=== PATIENT | male | born 1960 | race African-American/Black ===

== ENCOUNTER 2019-09-25 01:22 | Inpatient (IN) ==
[2019-09-25] MEDS ORDERED: NS 1000 ML 1,000 ML IV ONE (01:50)
--- NOTE | 2019-09-25 01:51 | DR.GIBLEED ---
HPI Time Seen Time Seen by Provider: 09/25/19 01:42 Primary Care Physician Primary Care Physician: SANA Complaints Chief Complaint Doctors Comments: A 59 y/o male resident at [facility] brought in for evaluation rectal bleed noted tonight. He is not contributing to hx. and that's all that was provided by the [facility] staff. He denies hurting anywhere. Chief Complaint:: PT HAVING BLOODY STOOLS Reviewed Nurses Notes Reviewed: Yes Source History Provided: [facility] Mode of Arrival Mode of Arrival: Stretcher Timing Onset of Chief Complaint: 09/25/19 Duration Duration: Unknown Quality Prehospital Care:: None Context Onset: Spontaneous Recent Use Of: None Associated Signs and Symptoms Associated Signs and Symptoms: denies Chest Pain, Abdominal Pain, Diarrhea, Epistaxis, Menorrhagia (female), Faintness and Other PMH PMH Past Medical History: Yes Past Medical History: Coronary Artery Disease, CVA, Diabetes and GERD Past Surgical History: No Surgical History: Unknown Family History History of Family Medical Conditions: No Social History Does patient currently use any type of tobacco product: Yes Have you used tobacco products in the last 12 months: Yes Type of Tobacco Use: Cigarettes Does any household member use tobacco: No Alcohol Use: None Do you use any recreational Drugs:: No Lives With: Other Lives Where: [facility] infectious screening In the last 2 months have you had wt loss of >10#?: NO Have you had fever, night sweats or hemotysis?: No Have you traveled outside the country in the last 6 months?: No Isolation: Standard ROS Review of Systems Constitutional: No Symptoms Reported Eyes: No Symptoms Reported ENTM: No Symptoms Reported Respiratoy: No Symptoms Reported Cardiovascular: No Symptoms Reported Gastrointestinal/Abdominal: Other (Rectal pain) Genitourinary: No Symptoms Reported Neurological: No Symptoms Reported Musculoskeletal: No Symptoms Reported Integumentary: No Symptoms Reported Hematologic/Lymphatic: No Symptoms Reported Endocrine: No Symptoms Reported Psychiatric: No Symptoms Reported PE Vital Signs Vitals: Temperature 99.2 F Pulse Rate 129 Respiratory Rate 18 Blood Pressure [Left Arm] 178/77 Blood Pressure 117/73 O2 Sat by Pulse Oximetry 100 General Limitations: Physical Limitation General Appearance: Alert, In No Apparent Distress and Cachectic Head Head Exam: Normal Inspection, Atraumatic and Normocephalic Eyes Eye exam: Normal Appearance and EOMI ENT ENT Exam: Normal Exam, Normal Oropharynx and Mucous Membranes Moist Neck Neck Exam: Normal Inspection and Trachea Midline Chest Chest Inspection: Normal Inspection and Symmetric Chest Wall Rise Respiratory Respiratory Exam: Normal Lung Sounds Bilat Cardiovascular Cardiovascular Exam: Regular Rate, Normal Rhythm, +S1 and +S2 Abdominal Exam Abdominal Exam: Normal Inspection, Normal Bowel Sounds and Soft Rectal Rectal Exam: Normal Inspection, Normal Rectal Tone and Bloody Stool Extremities Extremities Exam: Normal Inspection and Other (flaccid Rt. upper and lower) Back Back Exam: Normal Inspection Neurologic Neurological Exam: Alert Psychiatric Psychiatric Exam: Normal Affect and Normal Mood Skin Skin Exam: Dry and Normal Color COURSE Treatment Treatment: I understand from the Nursing staff that his lower G.I. bleed is recurrent and that he has an upcoming appt. with Dr. Payne for a C-Scope in the first week of October 2019. Reevaluation 1st: Improved Education/Counseling Education/Counseling: Education and Counseling Educated On: Treatment, Diagnosis, Prognosis and Needs for Follow Up ROR Labs Reviewed Result Diagrams: 09/25/19 02:24 09/25/19 02:24 Laboratory: WBC 8.8 X10^3/uL (3.6-10.0) 09/25/19 02:24 RBC 2.99 X10^6/uL (4.7-6.0) L 09/25/19 02:24 Hgb 8.4 g/dL (13.5-18.0) L 09/25/19 02:24 Hct 25.3 % (42.0-54.0) L 09/25/19 02:24 MCV 84.7 fL (80.0-100.0) 09/25/19 02:24 MCH 28.2 pg (27.0-34.0) 09/25/19 02:24 MCHC 33.3 g/dL (33.0-35.0) 09/25/19 02:24 RDW 14.9 % (11.6-16.5) 09/25/19 02:24 Plt Count 256 X10^3/uL (150.0-450.0) 09/25/19 02:24 MPV 8.2 fL (7.4-11.0) 09/25/19 02:24 Neut % (Auto) 47.0 % (42.0-75.0) 09/25/19 02:24 Lymph % (Auto) 39.8 % (21.0-51.0) 09/25/19 02:24 Page % (Auto) 7.9 % (0.0-13.0) 09/25/19 02:24 Eos % (Auto) 4.0 % (0.9-2.9) H 09/25/19 02:24 Baso % (Auto) 1.3 % (0.2-1.0) H 09/25/19 02:24 Neut # (Auto) 4.1 x10^3/uL (2.2-4.8) 09/25/19 02:24 Lymph # (Auto) 3.5 X10^3/uL (1.3-2.9) H 09/25/19 02:24 Page # (Auto) 0.7 x10^3/uL (0.3-0.8) 09/25/19 02:24 Eos # (Auto) 0.4 x10^3/uL (0.0-0.2) H 09/25/19 02:24 Baso # (Auto) 0.1 X10^3/uL (0.0-0.1) 09/25/19 02:24 Absolute Nucleated RBC 0.0 /100WBC 09/25/19 02:24 Sodium 137 mmol/L (136-145) 09/25/19 02:24 Corrected Sodium 138 mmol/L (136-145) 09/25/19 02:24 Potassium 4.8 mmol/L (3.5-5.1) 09/25/19 02:24 Chloride 99 mmol/L (98-107) 09/25/19 02:24 Carbon Dioxide 29.0 mmol/L (21-32) 09/25/19 02:24 BUN 33 mg/dL (7-18) H 09/25/19 02:24 Creatinine 0.61 mg/dL (0.70-1.30) L 09/25/19 02:24 Est GFR (MDRD) Af Amer > 60 (>60) 09/25/19 02:24 Est GFR (MDRD) Non-Af > 60 (>60) 09/25/19 02:24 Glucose 162 mg/dL (65-99) H 09/25/19 02:24 Calcium 8.6 mg/dL (8.5-10.1) 09/25/19 02:24 Corrected Calcium TNP 09/25/19 02:24 Total Bilirubin 0.20 mg/dL (0.2-1.0) 09/25/19 02:24 AST 14 Units/L (15-37) L 09/25/19 02:24 ALT 20 Units/L (12-78) 09/25/19 02:24 Alkaline Phosphatase 79 Units/L (46-116) 09/25/19 02:24 Total Protein 6.9 g/dL (6.4-8.2) 09/25/19 02:24 Albumin 3.5 g/dL (3.4-5.0) 09/25/19 02:24 Globulin 3.4 g/dL (2.5-4.5) 09/25/19 02:24 Albumin/Globulin Ratio 1.0 Ratio (1.1-2.1) L 09/25/19 02:24 Stool Description Fob tube 09/25/19 01:59 Stl Occult Blood (IFOB) Positive (NEGATIVE) A 09/25/19 01:59 Opioid Opioid Risk Tool Total: 0 Total Score Risk Category: Low Risk Copyright: [facility] predicting aberrant behaviors Diagnosis Discharge Problem: RB (rectal bleeding), Anemia, normocytic normochromic, Seizures, CVA, old, aphasia Diabetes mellitus Qualifiers: Diabetes mellitus type: type 2 Diabetes mellitus prison insulin use: without watcher automat long goods use Diabetes mellitus complication status: without complication Qualified Code(s): E11.9 - Type 2 diabetes mellitus without complications
[2019-09-25] MEDS ORDERED: NS 1000 ML 1,000 ML ONE ×3 (01:54→12:22)
[2019-09-25 02:36] LABS: BASOPHILS # (AUTO) 0.1 X10^3/uL (0.0-0.1); BASOPHILS % (AUTO) 1.3 % (0.2-1.0); EOSINOPHILS # (AUTO) 0.4 x10^3/uL (0.0-0.2); HEMATOCRIT 25.3 % (42.0-54.0); HEMOGLOBIN 8.4 g/dL (13.5-18.0); LYMPHOCYTES # (AUTO) 3.5 X10^3/uL (1.3-2.9); LYMPHOCYTES % (AUTO) 39.8 % (21.0-51.0); MEAN CORPUSCULAR HEMOGLOBIN 28.2 pg (27.0-34.0); MEAN CORPUSCULAR HGB CONC 33.3 g/dL (33.0-35.0); MEAN CORPUSCULAR VOLUME 84.7 fL (80.0-100.0); MEAN PLATELET VOLUME 8.2 fL (7.4-11.0); MONOCYTES # (AUTO) 0.7 x10^3/uL (0.3-0.8); MONOCYTES % (AUTO) 7.9 % (0.0-13.0); NEUTROPHILS # (AUTO) 4.1 x10^3/uL (2.2-4.8); PLATELET COUNT 256 X10^3/uL (150.0-450.0); RED BLOOD COUNT 2.99 X10^6/uL (4.7-6.0); RED CELL DISTRIBUTION WIDTH 14.9 % (11.6-16.5); WHITE BLOOD COUNT 8.8 X10^3/uL (3.6-10.0)
[2019-09-25 02:51] LABS: ALANINE AMINOTRANSFERASE 20 Units/L (12-78); ALBUMIN 3.5 g/dL (3.4-5.0); ALKALINE PHOSPHATASE 79 Units/L (46-116); ASPARTATE AMINO TRANSFERASE 14 Units/L (15-37); BLOOD UREA NITROGEN 33 mg/dL (7-18); CALCIUM 8.6 mg/dL (8.5-10.1); CHLORIDE 99 mmol/L (98-107); COR NA(FOR HYPERGLY) 138 mmol/L (136-145); CREATININE 0.61 mg/dL (0.70-1.30); SODIUM 137 mmol/L (136-145); TOTAL PROTEIN 6.9 g/dL (6.4-8.2); eGFR NON BLACK RACES > 60 (>60)
[2019-09-25] MEDS: NS 1000 ML 1,000 ML IV SCH ×3 (04:08→20:30)
[2019-09-25 04:24] VITALS: BMI 14.5
[2019-09-25] MEDS ORDERED: PHARMACY CONSULT LTC MEDICATIONS XX SCH (05:00)
[2019-09-25 09:02] LABS: HEMATOCRIT 22.6 % (42.0-54.0); HEMOGLOBIN 7.5 g/dL (13.5-18.0)
[2019-09-25] MEDS: PROTONIX INJ 40 MG VIAL 80 MG in NS 100 ML IV 80 ML IV SCH ×2 (10:39→20:33)
[2019-09-25] MEDS: COLACE CAP 100 MG PO SCH (10:47)
[2019-09-25] MEDS: NEURONTIN CAP 100 MG PO SCH ×2 (10:47→20:40)
[2019-09-25] MEDS: LEVETIRACETAM 500 MG PO SCH (10:47)
[2019-09-25] MEDS: LIPITOR TAB 40 MG PO SCH ×2 (10:47→20:40)
--- NOTE | 2019-09-25 12:27 | DR.H&P ---
H&P - History & Physical for Day of: H&P Date: 09/25/19 - Chief Complaint Chief Complaint: blood in stool - History of Present Illness History of Present Illness: PT IS 59 BM ER ADMISSION AFTER PT PRESENTED FROM [facility] WITH BLOOD IN STOOLS. PT HAS PMH OF CVA, DM, SEIZURE DISORDER. PT IS ON PLAVIX FOLLOWING CVA. PT ADMITTED FOR TREATMENT AND EVALUATION FOR GI BLEED. - Past Medical History Past Medical History: Coronary Artery Disease, CVA, Diabetes, GERD, Seizures - Past Surgical History Surgical History: Unknown - Social History Does patient currently use any type of tobacco product: Yes Have you used tobacco products in the last 12 months: Yes Type of Tobacco Use: Cigarettes Does any household member use tobacco: No Alcohol Use: None Drug Use: None - Medications Home Medications: No Known Drug Allergies Allergy (Verified 10/20/18 18:36) CONTINUE taking the following medications aspirin [Aspir-81] 81 mg PO DAILY 09/25/19 [History] atorvastatin [Lipitor] 80 mg PO QHS 09/25/19 [History] clopidogrel [Plavix] 75 mg PO DAILY 09/25/19 [History] docusate sodium [Colace] 100 mg PO DAILY 09/25/19 [History] gabapentin 100 mg PO QHS 09/25/19 [History] levetiracetam [Keppra XR] 500 mg PO DAILY 09/25/19 [History] meloxicam 7.5 mg PO DAILY 09/25/19 [History] metformin 500 mg PO BID 09/25/19 [History] - Review of Systems Constitutional: denies: Fever Eyes: No Symptoms Reported ENT: No Symptoms Reported Respiratory: No Symptoms Reported Cardiovascular: No Symptoms Reported Gastrointestinal: Diarrhea, Melena. denies: Nausea, Vomiting Genitourinary: No Symptoms Reported Musculoskeletal: No Symptoms Reported Skin: No Symptoms Reported Neurological: Weakness (GENERALIZED, WORSE IN LEGS) - Physical Exam Vital Signs: Temperature 97.7 F Pulse Rate [Apical] 105 Pulse Rate 111 Respiratory Rate 20 Blood Pressure [Left Arm] 135/68 Blood Pressure 120/74 O2 Sat by Pulse Oximetry 100 Oriented: Normal Eyes: Normal Ear: Normal Nose: Normal Throat: Dry Respiratory: RLL Diminished, LLL Diminished Cardiovascular: Normal. negative: Edema : Normal Auscultation: Bowel Sounds: Increased Palpation: Normal Tenderness: Epigastric, Mild Skin: Decreased Turgur Musculoskeletal: Normal Psychiatric: Normal Mood Description: Calm Speech Pattern: Clear, Appropriate, Delayed - Assessment/Plan (1) GI bleed Status: Acute Plan: ADMIT, OCCULT STOOL, IV PROTONIX. SERIAL H&H, TYPE AND CROSS MATCH. GENTLE IV HYDRATION, CMP. SEIZURE PRECAUTIONS, CONSULT GI (2) CVA, old, aphasia Status: Acute (3) Diabetes mellitus Qualifiers: Diabetes mellitus type: type 2 Diabetes mellitus intermediate frame tender insulin use: without intermediate frame tender use Diabetes mellitus complication status: without complication Qualified Code(s): E11.9 - Type 2 diabetes mellitus without complications Status: Acute - Allergies Allergies/Adverse Reactions: Allergies Allergy/AdvReac Type Severity Reaction Status Date / Time No Known Drug Allergies Allergy Verified 10/20/18 18:36
[2019-09-25] MEDS ORDERED: DIPRIVAN VIAL 20 ML ONE (12:49)
[2019-09-25 15:37] LABS: CRYPTOSPORIDIUM PARVUM ANTIGEN NEGATIVE (NEGATIVE); GIARDIA LAMBLIA ANTIGEN NEGATIVE (NEGATIVE)
[2019-09-25] MEDS ORDERED: BENADRYL INJ 50 MG VIAL IVP PRN (18:16)
[2019-09-25] MEDS: NS 500 ML IV 500 ML IV ONE (22:25)
[2019-09-26] MEDS: NS 1000 ML 1,000 ML IV SCH ×3 (05:10→18:21)
[2019-09-26 05:33] LABS: BASOPHILS # (AUTO) 0.1 X10^3/uL (0.0-0.1); BASOPHILS % (AUTO) 0.9 % (0.2-1.0); EOSINOPHILS # (AUTO) 0.3 x10^3/uL (0.0-0.2); EOSINOPHILS % (AUTO) 4.5 % (0.9-2.9); HEMATOCRIT 21.5 % (42.0-54.0); HEMOGLOBIN 7.1 g/dL (13.5-18.0); LYMPHOCYTES # (AUTO) 2.3 X10^3/uL (1.3-2.9); LYMPHOCYTES % (AUTO) 30.2 % (21.0-51.0); MEAN CORPUSCULAR HEMOGLOBIN 28.3 pg (27.0-34.0); MEAN CORPUSCULAR HGB CONC 32.8 g/dL (33.0-35.0); MEAN CORPUSCULAR VOLUME 86.1 fL (80.0-100.0); MEAN PLATELET VOLUME 8.8 fL (7.4-11.0); MONOCYTES # (AUTO) 0.6 x10^3/uL (0.3-0.8); MONOCYTES % (AUTO) 8.4 % (0.0-13.0); NEUTROPHILS # (AUTO) 4.2 x10^3/uL (2.2-4.8); PLATELET COUNT 238 X10^3/uL (150.0-450.0); RED BLOOD COUNT 2.49 X10^6/uL (4.7-6.0); RED CELL DISTRIBUTION WIDTH 14.3 % (11.6-16.5); WHITE BLOOD COUNT 7.5 X10^3/uL (3.6-10.0)
[2019-09-26 05:41] LABS: ALANINE AMINOTRANSFERASE 18 Units/L (12-78); ALBUMIN 3.3 g/dL (3.4-5.0); ALKALINE PHOSPHATASE 72 Units/L (46-116); ASPARTATE AMINO TRANSFERASE 17 Units/L (15-37); BLOOD UREA NITROGEN 16 mg/dL (7-18); CALCIUM 8.3 mg/dL (8.5-10.1); CARBON DIOXIDE 26.2 mmol/L (21-32); CHLORIDE 103 mmol/L (98-107); COR CA(FOR HYPOALB) 8.9 mg/dL (8.5-10.1); SODIUM 138 mmol/L (136-145); TOTAL PROTEIN 6.5 g/dL (6.4-8.2); eGFR NON BLACK RACES > 60 (>60)
[2019-09-26] MEDS: PROTONIX INJ 40 MG VIAL 80 MG in NS 100 ML IV 80 ML IV SCH ×2 (06:10→16:20)
[2019-09-26 06:11] LABS: HYPOCHROMASIA SLIGHT; PLATELET MORPHOLOGY COMMENT NORMAL (NORMAL)
[2019-09-26] MEDS: TYLENOL 325 MG TAB PO PRN (09:02)
[2019-09-26] MEDS: COLACE CAP 100 MG PO SCH (09:03)
[2019-09-26] MEDS: LEVETIRACETAM 500 MG PO SCH (09:03)
[2019-09-26] MEDS: NS 500 ML IV 500 ML IV ONE (09:12)
[2019-09-26 16:12] LABS: BASOPHILS # (AUTO) 0.1 X10^3/uL (0.0-0.1); BASOPHILS % (AUTO) 0.7 % (0.2-1.0); EOSINOPHILS # (AUTO) 0.3 x10^3/uL (0.0-0.2); EOSINOPHILS % (AUTO) 2.8 % (0.9-2.9); HEMATOCRIT 40.7 % (42.0-54.0); HEMOGLOBIN 13.9 g/dL (13.5-18.0); LYMPHOCYTES # (AUTO) 2.4 X10^3/uL (1.3-2.9); LYMPHOCYTES % (AUTO) 21.8 % (21.0-51.0); MEAN CORPUSCULAR HGB CONC 34.2 g/dL (33.0-35.0); MEAN CORPUSCULAR VOLUME 84.9 fL (80.0-100.0); MEAN PLATELET VOLUME 7.9 fL (7.4-11.0); MONOCYTES # (AUTO) 0.9 x10^3/uL (0.3-0.8); MONOCYTES % (AUTO) 7.9 % (0.0-13.0); NEUTROPHILS # (AUTO) 7.3 x10^3/uL (2.2-4.8); NEUTROPHILS % (AUTO) 66.8 % (42.0-75.0); PLATELET COUNT 205 X10^3/uL (150.0-450.0); RED BLOOD COUNT 4.79 X10^6/uL (4.7-6.0); RED CELL DISTRIBUTION WIDTH 15.7 % (11.6-16.5); WHITE BLOOD COUNT 10.9 X10^3/uL (3.6-10.0)
[2019-09-26] MEDS: HEMOCYTE-PLUS PO SCH (16:55)
[2019-09-26] MEDS ORDERED: K-RIDER 10 MEQ/NS 100 ML 10 MEQ/100 ML BAG IV PRN (17:32)
[2019-09-26] MEDS ORDERED: POTASSIUM CHL 60 MEQ/NS 0.45% 500 ML IV PRN (17:32)
[2019-09-26] MEDS ORDERED: KLOR-CON PO PRN (17:32)
[2019-09-26] MEDS ORDERED: POTASSIUM CHLORIDE LIQ 20 MEQ UDC PO PRN (17:32)
[2019-09-26] MEDS ORDERED: MICRO K EXTEN CAP 10 MEQ PO PRN (17:32)
[2019-09-26] MEDS ORDERED: POTASSIUM CHL 40 MEQ/NS 0.45% 500 ML IV PRN (17:32)
[2019-09-26] MEDS: MAGNESIUM SULFATE 1 GRAM/100 mL PREMIX 1 GM/100 ML BAG IV PRN ×2 (18:22→20:31)
[2019-09-26] MEDS: HumuLIN R SC PRN (20:29)
[2019-09-26] MEDS: K-DUR TAB 20 MEQ PO PRN (20:30)
[2019-09-26] MEDS: NEURONTIN CAP 100 MG PO SCH (20:30)
[2019-09-26] MEDS: LIPITOR TAB 40 MG PO SCH (20:30)
[2019-09-27] MEDS: PROTONIX INJ 40 MG VIAL 80 MG in NS 100 ML IV 80 ML IV SCH ×5 (02:08→21:05)
[2019-09-27] MEDS: NS 1000 ML 1,000 ML IV SCH ×3 (03:15→19:26)
[2019-09-27 06:26] LABS: BASOPHILS # (AUTO) 0.1 X10^3/uL (0.0-0.1); BASOPHILS % (AUTO) 0.9 % (0.2-1.0); EOSINOPHILS # (AUTO) 0.3 x10^3/uL (0.0-0.2); EOSINOPHILS % (AUTO) 3.2 % (0.9-2.9); HEMATOCRIT 35.4 % (42.0-54.0); HEMOGLOBIN 12.2 g/dL (13.5-18.0); LYMPHOCYTES % (AUTO) 23.7 % (21.0-51.0); MEAN CORPUSCULAR HGB CONC 34.6 g/dL (33.0-35.0); MEAN CORPUSCULAR VOLUME 83.9 fL (80.0-100.0); MEAN PLATELET VOLUME 8.2 fL (7.4-11.0); MONOCYTES # (AUTO) 0.7 x10^3/uL (0.3-0.8); MONOCYTES % (AUTO) 8.6 % (0.0-13.0); NEUTROPHILS # (AUTO) 5.3 x10^3/uL (2.2-4.8); NEUTROPHILS % (AUTO) 63.6 % (42.0-75.0); PLATELET COUNT 221 X10^3/uL (150.0-450.0); RED BLOOD COUNT 4.21 X10^6/uL (4.7-6.0); RED CELL DISTRIBUTION WIDTH 15.8 % (11.6-16.5); WHITE BLOOD COUNT 8.3 X10^3/uL (3.6-10.0)
[2019-09-27 06:46] LABS: ALANINE AMINOTRANSFERASE 18 Units/L (12-78); ALBUMIN 3.2 g/dL (3.4-5.0); ALKALINE PHOSPHATASE 75 Units/L (46-116); ASPARTATE AMINO TRANSFERASE 17 Units/L (15-37); BLOOD UREA NITROGEN 5 mg/dL (7-18); CALCIUM 8.5 mg/dL (8.5-10.1); CARBON DIOXIDE 28.5 mmol/L (21-32); CHLORIDE 105 mmol/L (98-107); COR CA(FOR HYPOALB) 9.1 mg/dL (8.5-10.1); COR NA(FOR HYPERGLY) 140 mmol/L (136-145); CREATININE 0.37 mg/dL (0.70-1.30); MAGNESIUM 1.8 mg/dL (1.7-2.9); SODIUM 139 mmol/L (136-145); TOTAL PROTEIN 6.5 g/dL (6.4-8.2); eGFR NON BLACK RACES > 60 (>60)
[2019-09-27] MEDS: HEMOCYTE-PLUS PO SCH (09:10)
[2019-09-27] MEDS: LEVETIRACETAM 500 MG PO SCH (09:10)
[2019-09-27] MEDS: K-DUR TAB 20 MEQ PO PRN (09:10)
[2019-09-27] MEDS: COLACE CAP 100 MG PO SCH (09:10)
[2019-09-27] MEDS: MAGNESIUM SULFATE 1 GRAM/100 mL PREMIX 1 GM/100 ML BAG IV PRN ×2 (09:10→10:05)
[2019-09-27] MEDS: LIPITOR TAB 40 MG PO SCH (20:49)
[2019-09-27] MEDS: NEURONTIN CAP 100 MG PO SCH (20:50)
[2019-09-28] MEDS: PROTONIX INJ 40 MG VIAL 80 MG in NS 100 ML IV 80 ML IV SCH ×4 (06:20→18:50)
[2019-09-28] MEDS: HumuLIN R SC PRN ×2 (06:36→17:10)
[2019-09-28 06:37] LABS: BASOPHILS # (AUTO) 0.1 X10^3/uL (0.0-0.1); BASOPHILS % (AUTO) 0.9 % (0.2-1.0); EOSINOPHILS # (AUTO) 0.3 x10^3/uL (0.0-0.2); EOSINOPHILS % (AUTO) 3.8 % (0.9-2.9); HEMATOCRIT 37.1 % (42.0-54.0); HEMOGLOBIN 12.4 g/dL (13.5-18.0); LYMPHOCYTES # (AUTO) 2.5 X10^3/uL (1.3-2.9); LYMPHOCYTES % (AUTO) 34.4 % (21.0-51.0); MEAN CORPUSCULAR HEMOGLOBIN 28.4 pg (27.0-34.0); MEAN CORPUSCULAR HGB CONC 33.4 g/dL (33.0-35.0); MEAN CORPUSCULAR VOLUME 84.9 fL (80.0-100.0); MEAN PLATELET VOLUME 8.5 fL (7.4-11.0); MONOCYTES # (AUTO) 0.6 x10^3/uL (0.3-0.8); MONOCYTES % (AUTO) 8.6 % (0.0-13.0); NEUTROPHILS # (AUTO) 3.9 x10^3/uL (2.2-4.8); NEUTROPHILS % (AUTO) 52.3 % (42.0-75.0); PLATELET COUNT 235 X10^3/uL (150.0-450.0); RED BLOOD COUNT 4.36 X10^6/uL (4.7-6.0); RED CELL DISTRIBUTION WIDTH 16.1 % (11.6-16.5); WHITE BLOOD COUNT 7.4 X10^3/uL (3.6-10.0)
[2019-09-28 07:00] LABS: ALANINE AMINOTRANSFERASE 20 Units/L (12-78); ALBUMIN 3.1 g/dL (3.4-5.0); ALKALINE PHOSPHATASE 97 Units/L (46-116); ASPARTATE AMINO TRANSFERASE 18 Units/L (15-37); BLOOD UREA NITROGEN 5 mg/dL (7-18); CALCIUM 8.3 mg/dL (8.5-10.1); CARBON DIOXIDE 28.4 mmol/L (21-32); CHLORIDE 104 mmol/L (98-107); COR NA(FOR HYPERGLY) 141 mmol/L (136-145); CREATININE 0.55 mg/dL (0.70-1.30); MAGNESIUM 1.7 mg/dL (1.7-2.9); SODIUM 139 mmol/L (136-145); TOTAL PROTEIN 6.6 g/dL (6.4-8.2); eGFR NON BLACK RACES > 60 (>60)
[2019-09-28] MEDS: MAGNESIUM SULFATE 1 GRAM/100 mL PREMIX 1 GM/100 ML BAG IV PRN ×2 (08:44→10:10)
[2019-09-28] MEDS: COLACE CAP 100 MG PO SCH (08:44)
[2019-09-28] MEDS: HEMOCYTE-PLUS PO SCH (08:44)
[2019-09-28] MEDS: LEVETIRACETAM 500 MG PO SCH (08:45)
[2019-09-28] MEDS: NS 1000 ML 1,000 ML IV SCH ×3 (10:34→23:34)
[2019-09-28] MEDS: TYLENOL 325 MG TAB PO PRN (17:42)
[2019-09-28] MEDS: LIPITOR TAB 40 MG PO SCH (21:15)
[2019-09-28] MEDS: NEURONTIN CAP 100 MG PO SCH (21:16)
--- NOTE | 2019-09-28 22:09 | PCM.PROG ---
Progress Note - Progress Note for Day of Date of Exam: 09/27/19 - Subjective Subjective: WAS ADMITTED FOR TREATMENT OF A GI BLEED. PERFORMED AN EGD YESTERDAY. EGD REVEALED MILD ESOPHAGITIS AND MILD GASTRITIS. HE RECEIVIED TWO UNITS OF PRBC ON ADMISSION. TODAY, HE IS ALERT AND ORIENTED, LYING IN BED ON MORNING ROUNDS. HE CONTINUES WITH COMPLAINTS OF WEAKNESS AND ABDOMINAL PAIN. ON EXAMINATION, HEART IS REGULAR IN RATE AND RHYTHM. BILATERAL LUNGS ARE NOTED WITH DIMINISHED LUNG SOUNDS THROUGHOUT. ABDOMEN IS FLAT, SOFT, AND NOTED WITH DIFFUSE TENDERNESS. NORMAL BOWEL SOUNDS ARE NOTED IN ALL QUADRANTS. HIS VITALS THIS MORNING ARE: 98.0-79-16-100%-137/81. LABS WERE OBTAINED. ABNORMAL LAB VALUES INCLUDE THE FOLLOWING: RBC 4.21, HGB 12.2, HCT 35.4, BUN 5, CREAT ININE 0.37, GLUCOSE 127, ALBUMIN 3.2. STOOL IS POSITIVE FOR OCCULT BLOOD AND WHITE CELLS. HE IS CURRENTLY RECEIVING NORMAL SALINE AT 75ML/HR, A PROTONIX DRIP, POTASSIUM AND MAGNESIUM PROTOCOLS, AND HOME MEDICATIONS WERE RESUMED WITH THE EXCEPTION OF HIS PLAVIX AND ASPIRIN. WE WILL CONTINUE WITH CURRENT PLAN OF CARE TODAY. OTHERWISE, WE WILL FOLLOW UP WITH AM LABS AND CONTINUE TO MONITOR. - Past Medical Family Social History Past Med/Fam/Surg Hx: No changes since H&P Allergies: Allergies No Known Drug Allergies Allergy (Verified 10/20/18 18:36) - Review of Systems ROS: No change since H&P - Vital Signs and I&O's Vital Signs: Temperature 98.5 F Pulse Rate [Apical] 84 Pulse Rate 111 Respiratory Rate 18 Blood Pressure [Right Arm] 137/77 Blood Pressure [Left Arm] 145/81 Blood Pressure 120/74 O2 Sat by Pulse Oximetry 100 Intake and Output: Intake & Output 09/26/19 09/27/19 09/28/19 09/29/19 11:59 11:59 11:59 11:59 Intake Total 2647 / 2647 2606 / 2606 1420 / 1420 1204 / 1204 Output Total 50 / 50 Balance 2647 / 2647 2606 / 2606 1370 / 1370 1204 / 1204 - Physical Exam Oriented: Normal Eyes: Normal Ear: Normal Nose: Normal Throat: Dry Respiratory: Generalized, Diminished Cardiovascular: Normal. negative: Edema : Normal Auscultation: Bowel Sounds: Increased Tenderness: Diffuse, Mild Skin: Decreased Turgur Musculoskeletal: Normal Psychiatric: Normal Mood Description: Calm Affect: Normal Speech Pattern: Appropriate, Unclear - Laboratory and Diagnostics Result Diagrams: 09/28/19 05:16 09/28/19 05:16 Labs: 09/25/19 13:50 Stool Stool Culture - Final 09/25/19 13:50 Stool - Final Laboratory WBC 7.4 X10^3/uL (3.6-10.0) 09/28/19 05:16 RBC 4.36 X10^6/uL (4.7-6.0) L 09/28/19 05:16 Hgb 12.4 g/dL (13.5-18.0) L 09/28/19 05:16 Hct 37.1 % (42.0-54.0) L 09/28/19 05:16 MCV 84.9 fL (80.0-100.0) 09/28/19 05:16 MCH 28.4 pg (27.0-34.0) 09/28/19 05:16 MCHC 33.4 g/dL (33.0-35.0) 09/28/19 05:16 RDW 16.1 % (11.6-16.5) 09/28/19 05:16 Plt Count 235 X10^3/uL (150.0-450.0) 09/28/19 05:16 Plt Count Comment Adequate (ADEQUATE) 09/26/19 04:41 MPV 8.5 fL (7.4-11.0) 09/28/19 05:16 Neut % (Auto) 52.3 % (42.0-75.0) 09/28/19 05:16 Lymph % (Auto) 34.4 % (21.0-51.0) 09/28/19 05:16 [place] % (Auto) 8.6 % (0.0-13.0) 09/28/19 05:16 Eos % (Auto) 3.8 % (0.9-2.9) H 09/28/19 05:16 Baso % (Auto) 0.9 % (0.2-1.0) 09/28/19 05:16 Neut # (Auto) 3.9 x10^3/uL (2.2-4.8) 09/28/19 05:16 Lymph # (Auto) 2.5 X10^3/uL (1.3-2.9) 09/28/19 05:16 [place] # (Auto) 0.6 x10^3/uL (0.3-0.8) 09/28/19 05:16 Eos # (Auto) 0.3 x10^3/uL (0.0-0.2) H 09/28/19 05:16 Baso # (Auto) 0.1 X10^3/uL (0.0-0.1) 09/28/19 05:16 Absolute Nucleated RBC 0.0 /100WBC 09/28/19 05:16 Plt Morphology Comment Normal (NORMAL) 09/26/19 04:41 RBC Morphology Abnormal (NORMAL) 09/26/19 04:41 Hypochromasia Slight A 09/26/19 04:41 Sodium 139 mmol/L (136-145) 09/28/19 05:16 Corrected Sodium 141 mmol/L (136-145) 09/28/19 05:16 Potassium 3.9 mmol/L (3.5-5.1) 09/28/19 05:16 Chloride 104 mmol/L (98-107) 09/28/19 05:16 Carbon Dioxide 28.4 mmol/L (21-32) 09/28/19 05:16 BUN 5 mg/dL (7-18) L 09/28/19 05:16 Creatinine 0.55 mg/dL (0.70-1.30) L 09/28/19 05:16 Est GFR (MDRD) Af Amer > 60 (>60) 09/28/19 05:16 Est GFR (MDRD) Non-Af > 60 (>60) 09/28/19 05:16 Glucose 178 mg/dL (65-99) H 09/28/19 05:16 POC Glucose (mg/dL) 139 mg/dL (65-99) H 09/28/19 20:26 Calcium 8.3 mg/dL (8.5-10.1) L 09/28/19 05:16 Corrected Calcium 9.0 mg/dL (8.5-10.1) 09/28/19 05:16 Magnesium 1.7 mg/dL (1.7-2.9) 09/28/19 05:16 Iron 47 ug/dL (50-175) L 09/25/19 18:34 Transferrin 184 mg/dL (202-364) L 09/25/19 18:34 Ferritin 241 ng/mL (26-388) 09/25/19 18:34 Total Bilirubin 0.20 mg/dL (0.2-1.0) 09/28/19 05:16 AST 18 Units/L (15-37) 09/28/19 05:16 ALT 20 Units/L (12-78) 09/28/19 05:16 Alkaline Phosphatase 97 Units/L (46-116) 09/28/19 05:16 Total Protein 6.6 g/dL (6.4-8.2) 09/28/19 05:16 Albumin 3.1 g/dL (3.4-5.0) L 09/28/19 05:16 Globulin 3.5 g/dL (2.5-4.5) 09/28/19 05:16 Albumin/Globulin Ratio 0.9 Ratio (1.1-2.1) L 09/28/19 05:16 Vitamin B12 257 pg/mL (193-986) 09/25/19 18:34 Folate 18.2 ng/mL (>8.6) 09/25/19 18:34 Stool Description 25g,semisolid,dbrown 09/26/19 17:50 Stl Occult Blood (IFOB) Positive (NEGATIVE) A 09/26/19 17:50 Stool for White Cells Positive (NEGATIVE) A 09/25/19 13:50 Stl C. diff Tox B Gene Negative (NEGATIVE) 09/25/19 13:50 Stl C. diff 027-[id number] Negative (NEGATIVE) 09/25/19 13:50 Cryptosporid parvum Ag Negative (NEGATIVE) 09/25/19 13:50 Giardia lamblia Ag Negative (NEGATIVE) 09/25/19 13:50 Blood Type B POSITIVE 09/25/19 08:45 Antibody Screen Negative 09/25/19 08:45 Crossmatch See Detail 09/25/19 08:45 - Plan (1) GI bleed Status: Acute Qualifiers: GI bleed type/associated pathology: unspecified gastrointestinal hemorrhage type Qualified Code(s): K92.2 - Gastrointestinal hemorrhage, unspecified Plan: IV PROTONIX, MONITOR H&H, CONTINUE TO MONITOR (2) Anemia, normocytic normochromic Status: Acute Plan: CONTINUE TO MONITOR
--- NOTE | 2019-09-28 22:12 | PCM.PROG ---
Progress Note - Progress Note for Day of Date of Exam: 09/28/19 - Subjective Subjective: WAS ADMITTED FOR TREATMENT OF A GI BLEED AND ANEMIA. HE RECEIVIED TWO UNITS OF PRBC ON ADMISSION. TODAY, HE IS ALERT AND ORIENTED, LYING IN BED ON MORNING ROUNDS. HE CONTINUES WITH COMPLAINTS OF WEAKNESS AND ABDOMINAL PAIN. ON EXAMINATION, HEART IS REGULAR IN RATE AND RHYTHM. BILATERAL LUNGS ARE NOTED WITH DIMINISHED LUNG SOUNDS THROUGHOUT. ABDOMEN IS FLAT, SOFT, AND NOTED WITH DIFFUSE TENDERNESS. NORMAL BOWEL SOUNDS ARE NOTED IN ALL QUADRANTS. HIS VITALS THIS MORNING ARE: 97.8-80-18-100%-163/83. LABS WERE OBTAINED. ABNORMAL LAB VALUES INCLUDE THE FOLLOWING: RBC 4.36, HGB 12.4, HCT 37.1, BUN 5, CREATININE 0.55, GLUCOSE 178, CALCIUM 8.3, ALBUMIN 3.1. STOOL IS POSITIVE FOR OCCULT BLOOD AND WHITE CELLS. HE IS CURRENTLY RECEIVING NORMAL SALINE AT 75ML/HR, A PROTONIX DRIP, POTASSIUM AND MAGNESIUM PROTOCOLS, AND HOME MEDICATIONS WERE RESUMED WITH THE EXCEPTION OF HIS PLAVIX AND ASPIRIN. WE WILL CONTINUE WITH CURRENT PLAN OF CARE TODAY. OTHERWISE, WE WILL FOLLOW UP WITH AM LABS AND CONTINUE TO MONITOR. - Past Medical Family Social History Past Med/Fam/Surg Hx: No changes since H&P Allergies: Allergies No Known Drug Allergies Allergy (Verified 10/20/18 18:36) - Review of Systems ROS: No change since H&P - Vital Signs and I&O's Vital Signs: Temperature 98.5 F Pulse Rate [Apical] 84 Pulse Rate 111 Respiratory Rate 18 Blood Pressure [Right Arm] 137/77 Blood Pressure [Left Arm] 145/81 Blood Pressure 120/74 O2 Sat by Pulse Oximetry 100 Intake and Output: Intake & Output 09/26/19 09/27/19 09/28/19 09/29/19 11:59 11:59 11:59 11:59 Intake Total 2647 / 2647 2606 / 2606 1420 / 1420 1204 / 1204 Output Total 50 / 50 Balance 2647 / 2647 2606 / 2606 1370 / 1370 1204 / 1204 - Physical Exam Oriented: Normal Eyes: Normal Ear: Normal Nose: Normal Throat: Dry Respiratory: Generalized, Diminished Cardiovascular: Normal. negative: Edema : Normal Auscultation: Bowel Sounds: Increased Tenderness: Diffuse, Mild Skin: Decreased Turgur Musculoskeletal: Normal Psychiatric: Normal Mood Description: Calm Affect: Normal Speech Pattern: Appropriate, Unclear - Laboratory and Diagnostics Result Diagrams: 09/28/19 05:16 09/28/19 05:16 Labs: 09/25/19 13:50 Stool Stool Culture - Final 09/25/19 13:50 Stool - Final Laboratory WBC 7.4 X10^3/uL (3.6-10.0) 09/28/19 05:16 RBC 4.36 X10^6/uL (4.7-6.0) L 09/28/19 05:16 Hgb 12.4 g/dL (13.5-18.0) L 09/28/19 05:16 Hct 37.1 % (42.0-54.0) L 09/28/19 05:16 MCV 84.9 fL (80.0-100.0) 09/28/19 05:16 MCH 28.4 pg (27.0-34.0) 09/28/19 05:16 MCHC 33.4 g/dL (33.0-35.0) 09/28/19 05:16 RDW 16.1 % (11.6-16.5) 09/28/19 05:16 Plt Count 235 X10^3/uL (150.0-450.0) 09/28/19 05:16 Plt Count Comment Adequate (ADEQUATE) 09/26/19 04:41 MPV 8.5 fL (7.4-11.0) 09/28/19 05:16 Neut % (Auto) 52.3 % (42.0-75.0) 09/28/19 05:16 Lymph % (Auto) 34.4 % (21.0-51.0) 09/28/19 05:16 [place] % (Auto) 8.6 % (0.0-13.0) 09/28/19 05:16 Eos % (Auto) 3.8 % (0.9-2.9) H 09/28/19 05:16 Baso % (Auto) 0.9 % (0.2-1.0) 09/28/19 05:16 Neut # (Auto) 3.9 x10^3/uL (2.2-4.8) 09/28/19 05:16 Lymph # (Auto) 2.5 X10^3/uL (1.3-2.9) 09/28/19 05:16 [place] # (Auto) 0.6 x10^3/uL (0.3-0.8) 09/28/19 05:16 Eos # (Auto) 0.3 x10^3/uL (0.0-0.2) H 09/28/19 05:16 Baso # (Auto) 0.1 X10^3/uL (0.0-0.1) 09/28/19 05:16 Absolute Nucleated RBC 0.0 /100WBC 09/28/19 05:16 Plt Morphology Comment Normal (NORMAL) 09/26/19 04:41 RBC Morphology Abnormal (NORMAL) 09/26/19 04:41 Hypochromasia Slight A 09/26/19 04:41 Sodium 139 mmol/L (136-145) 09/28/19 05:16 Corrected Sodium 141 mmol/L (136-145) 09/28/19 05:16 Potassium 3.9 mmol/L (3.5-5.1) 09/28/19 05:16 Chloride 104 mmol/L (98-107) 09/28/19 05:16 Carbon Dioxide 28.4 mmol/L (21-32) 09/28/19 05:16 BUN 5 mg/dL (7-18) L 09/28/19 05:16 Creatinine 0.55 mg/dL (0.70-1.30) L 09/28/19 05:16 Est GFR (MDRD) Af Amer > 60 (>60) 09/28/19 05:16 Est GFR (MDRD) Non-Af > 60 (>60) 09/28/19 05:16 Glucose 178 mg/dL (65-99) H 09/28/19 05:16 POC Glucose (mg/dL) 139 mg/dL (65-99) H 09/28/19 20:26 Calcium 8.3 mg/dL (8.5-10.1) L 09/28/19 05:16 Corrected Calcium 9.0 mg/dL (8.5-10.1) 09/28/19 05:16 Magnesium 1.7 mg/dL (1.7-2.9) 09/28/19 05:16 Iron 47 ug/dL (50-175) L 09/25/19 18:34 Transferrin 184 mg/dL (202-364) L 09/25/19 18:34 Ferritin 241 ng/mL (26-388) 09/25/19 18:34 Total Bilirubin 0.20 mg/dL (0.2-1.0) 09/28/19 05:16 AST 18 Units/L (15-37) 09/28/19 05:16 ALT 20 Units/L (12-78) 09/28/19 05:16 Alkaline Phosphatase 97 Units/L (46-116) 09/28/19 05:16 Total Protein 6.6 g/dL (6.4-8.2) 09/28/19 05:16 Albumin 3.1 g/dL (3.4-5.0) L 09/28/19 05:16 Globulin 3.5 g/dL (2.5-4.5) 09/28/19 05:16 Albumin/Globulin Ratio 0.9 Ratio (1.1-2.1) L 09/28/19 05:16 Vitamin B12 257 pg/mL (193-986) 09/25/19 18:34 Folate 18.2 ng/mL (>8.6) 09/25/19 18:34 Stool Description 25g,semisolid,dbrown 09/26/19 17:50 Stl Occult Blood (IFOB) Positive (NEGATIVE) A 09/26/19 17:50 Stool for White Cells Positive (NEGATIVE) A 09/25/19 13:50 Stl C. diff Tox B Gene Negative (NEGATIVE) 09/25/19 13:50 Stl C. diff [id number] Negative (NEGATIVE) 09/25/19 13:50 Cryptosporid parvum Ag Negative (NEGATIVE) 09/25/19 13:50 Giardia lamblia Ag Negative (NEGATIVE) 09/25/19 13:50 Blood Type B POSITIVE 09/25/19 08:45 Antibody Screen Negative 09/25/19 08:45 Crossmatch See Detail 09/25/19 08:45 - Plan (1) GI bleed Status: Acute Qualifiers: GI bleed type/associated pathology: unspecified gastrointestinal hemorrhage type Qualified Code(s): K92.2 - Gastrointestinal hemorrhage, unspecified Plan: IV PROTONIX, MONITOR H&H, CONTINUE TO MONITOR (2) Anemia, normocytic normochromic Status: Acute Plan: CONTINUE TO MONITOR
[2019-09-29] MEDS: PROTONIX INJ 40 MG VIAL 80 MG in NS 100 ML IV 80 ML IV SCH ×2 (04:35→07:18)
[2019-09-29 06:16] LABS: BASOPHILS # (AUTO) 0.1 X10^3/uL (0.0-0.1); BASOPHILS % (AUTO) 0.9 % (0.2-1.0); EOSINOPHILS # (AUTO) 0.3 x10^3/uL (0.0-0.2); EOSINOPHILS % (AUTO) 3.2 % (0.9-2.9); HEMATOCRIT 33.5 % (42.0-54.0); HEMOGLOBIN 11.4 g/dL (13.5-18.0); LYMPHOCYTES # (AUTO) 2.8 X10^3/uL (1.3-2.9); LYMPHOCYTES % (AUTO) 31.7 % (21.0-51.0); MEAN CORPUSCULAR HEMOGLOBIN 28.7 pg (27.0-34.0); MEAN CORPUSCULAR HGB CONC 34.1 g/dL (33.0-35.0); MEAN CORPUSCULAR VOLUME 84.2 fL (80.0-100.0); MEAN PLATELET VOLUME 8.3 fL (7.4-11.0); MONOCYTES # (AUTO) 0.6 x10^3/uL (0.3-0.8); MONOCYTES % (AUTO) 6.7 % (0.0-13.0); NEUTROPHILS # (AUTO) 5.1 x10^3/uL (2.2-4.8); NEUTROPHILS % (AUTO) 57.5 % (42.0-75.0); PLATELET COUNT 249 X10^3/uL (150.0-450.0); RED BLOOD COUNT 3.98 X10^6/uL (4.7-6.0); RED CELL DISTRIBUTION WIDTH 15.9 % (11.6-16.5); WHITE BLOOD COUNT 8.9 X10^3/uL (3.6-10.0)
[2019-09-29 06:33] LABS: ALANINE AMINOTRANSFERASE 20 Units/L (12-78); ALBUMIN 2.9 g/dL (3.4-5.0); ALKALINE PHOSPHATASE 92 Units/L (46-116); ASPARTATE AMINO TRANSFERASE 21 Units/L (15-37); BLOOD UREA NITROGEN 6 mg/dL (7-18); CALCIUM 8.3 mg/dL (8.5-10.1); CARBON DIOXIDE 28.2 mmol/L (21-32); CHLORIDE 105 mmol/L (98-107); COR CA(FOR HYPOALB) 9.2 mg/dL (8.5-10.1); COR NA(FOR HYPERGLY) 140 mmol/L (136-145); CREATININE 0.47 mg/dL (0.70-1.30); MAGNESIUM 1.6 mg/dL (1.7-2.9); SODIUM 140 mmol/L (136-145); TOTAL PROTEIN 6.2 g/dL (6.4-8.2); eGFR NON BLACK RACES > 60 (>60)
[2019-09-29] MEDS: LEVETIRACETAM 500 MG PO SCH (09:27)
[2019-09-29] MEDS: HEMOCYTE-PLUS PO SCH (09:27)
[2019-09-29] MEDS: COLACE CAP 100 MG PO SCH (09:27)
[2019-09-29] MEDS: NS 1000 ML 1,000 ML IV SCH (13:15)
[2019-09-29 17:10] VITALS: BP 140/75
== END 2019-09-29 17:05 | DRG 378 ==
LOC: ER 01:23 → MED/SURG 01:23
PROVIDERS: ADMIT Internal Medicine; ATTEND Internal Medicine
DX: D64.9 Anemia, unspecified; G40.909 Epilepsy, unspecified, not intractable, without status epilepticus; R10.9 Unspecified abdominal pain; E11.8 Type 2 diabetes mellitus with unspecified complications; K29.70 Gastritis, unspecified, without bleeding; Z74.01 Bed confinement status; D68.9 Coagulation defect, unspecified; E78.5 Hyperlipidemia, unspecified; K92.2 Gastrointestinal hemorrhage, unspecified; K20.8 Other esophagitis
CPT/HCPCS: 36415; 36430; 80053; 82270; 82607; 82728; 82746; 83540; 83630; 83735; 84466; 85014; 85018; 85025; 86850; 86900; 86901; 86922; 87045; 87328; 87329; 87427; 87449; 87493; 87899; 96365; 96367; 97163; 99284; P9016; A4222; C9113; G0378; J1200; J1815; J2704; J3475; J3490; J7030; J7040; J7050

== ENCOUNTER 2019-12-26 14:10 | Inpatient (IN) ==
[~2019-12-26 14:10] MED LIST: DIPRIVAN VIAL ONE; STERILE WATER IRRIGATION IR ONE; VERSED ONE
[2019-12-26] MEDS ORDERED: XYLOCAINE 1 % (PLAIN) ONE ×2 (14:29→15:21)
[2019-12-26] MEDS ORDERED: MORPHINE SULFATE INJ 2 MG INJ IVP ONE (14:30)
[2019-12-26] MEDS ORDERED: MORPHINE SULFATE INJ 2 MG INJ ONE (14:30)
[2019-12-26] MEDS ORDERED: STERILE WATER IRRIGATION IR ONE (14:32)
[2019-12-26 14:35] LABS: ABG HCO3 26.8 mmol/L (22-26)
[2019-12-26 14:58] VITALS: BMI 15.1
--- NOTE | 2019-12-26 15:14 | DR.SOBA ---
HPI Time Seen Time Seen by Provider: 12/26/19 14:50 Primary Care Physician Primary Care Physician: SANA HPI Comment HPI Comment: PATIENT IS 59YR OLD MALE IN ER WITH INCREASING SOB AFTER PORT-A-CATH PLACEMENT THIS MORNING. HE IS AT [facility]. CHEST XRAY DONE IS SHOWING PNEUMOTHORAX. DR. WALLER THE SURGEON INFORM AND PATIENT IS IN ER FOR CHEST TUBE PLACEMENT. PATIENT ALSO IS HAVING CHEST PAIN. Complaints Chief Complaint Doctors Comments: INCREASING SOB AFTER PORT-A-CATH PLACEMENT THIS AM. Chief Complaint:: [facility] STAFF STATES PT IS HAVING TACHYPNEA AND TACHYCARDIA. PT IS A FEW HOURS POST OP FROM A PORT A CATH PLACEMENT TODAY. CHEST XRAY WAS OBTAINED PRIOR FOR PORT A CATH PLACEMENT AND NOTED A LT SIDED PNEUMOTHORAX. MINIMAL BREATH SOUNDS TO LT LOWER WITH NO BREATH SOUNDS NOTED IN THE OTHER LT LUNG LOW. NOTED PT TO HAVE WHEEZING AND STRIDOR TO THE RT LUNG THROUGHOUT. COVID-19 Coronavirus risk:travel/contact w/high risk person: No Has patient experienced Coronavirus symptoms: No Reviewed Nurses Notes Reviewed: Yes Source History Provided: [facility] Mode of Arrival Mode of Arrival: Stretcher Timing Onset of Chief Complaint: 12/26/19 Context Onset:: At Rest PE Risk Factors:: Recent Surgery History of:: None Currently on:: Neither Prehospital Care:: None Modifying Factors Worsens:: Exertion Improves:: Sitting Up Associated Signs and Symptoms Associated Signs and Symptoms: Chest Pain If Chest Pain Quality: Sharp and Stabbing Location: Right Lower Chest, Left Upper Chest and Substernal If Cough Cough: None Other History Other History: POST RIGHT PORT-A-CATH. PMH PMH Past Medical History: Yes Past Medical History: Coronary Artery Disease, CVA, Diabetes, GERD and Seizures Past Surgical History: Yes Surgical History: Unknown Past Surgical History Comment: PEG TUBE, PORT A CATH PLACEMENT Family History History of Family Medical Conditions: No Social History Do you use any recreational Drugs:: No Lives Where: [facility] Travel Risk Coronavirus risk:travel/contact w/high risk person: No Has patient experienced Coronavirus symptoms: No Infectious screening In the last 2 months have you had wt loss of >10#?: NO Have you had fever, night sweats or hemotysis?: No Have you traveled outside the country in the last 6 months?: No Isolation: Standard ROS Review of Systems Constitutional: No Symptoms Reported, See HPI, Weakness and Fatigue; negative Fever Eyes: No Symptoms Reported and See HPI; negative Blurred Vision and Diplopia ENTM: No Symptoms Reported and See HPI; negative Ear Pain, Nose Discharge, Nose Congestion and Throat Pain Respiratoy: No Symptoms Reported, See HPI, Moist Cough, Short of Breath and Wheezing Cardiovascular: No Symptoms Reported, See HPI, Chest Pain and Palpitations Gastrointestinal/Abdominal: See HPI and Other (INCONTINENCE TO STOOL.); negative Diarrhea and Vomiting Genitourinary: See HPI and Other (URINARY INCONTINENCE.) Neurological: See HPI and Weakness Musculoskeletal: See HPI and Chest wall Integumentary: See HPI and Dryness; negative Change in Color and Juandice Hematologic/Lymphatic: See HPI and Easy Bruising; negative Swollen Glands Endocrine: See HPI and Decreased Appetite Psychiatric: No Symptoms Reported and See HPI All Other Systems: Reviewed and Negative PE Vital Signs Vitals: Temperature 96.9 F Pulse Rate [Right Radial] 107 Pulse Rate 154 Respiratory Rate 25 Blood Pressure [Right Arm] 136/74 Blood Pressure [Left Arm] 144/81 Blood Pressure 239/116 O2 Sat by Pulse Oximetry 97 General Limitations: No Limitations General Appearance: Alert and In No Apparent Distress Head Head Exam: Normal Inspection Eyes Eye exam: negative Conjunctival Injection ENT ENT Exam: Normal Exam, Normal Oropharynx, Normal External Ear Exam and TM's Normal Bilaterally Neck Neck Exam: Normal Inspection and Trachea Midline; negative Tenderness and Lymphadenopathy Chest Chest Inspection: Normal Inspection and Symmetric Chest Wall Rise Respiratory Respiratory Exam: Accessory Muscle Use, Chest Wall Tenderness and Respiratory Distress Respiratory Exam: Bilateral: Wheezing, Bilateral: Rhonchi and Bilateral: Decreased Breath Sounds, Upper: Decreased Breath Sounds and Lower: Rhonchi Cardiovascular Cardiovascular Exam: Normal Rhythm and Tachycardia Abdominal Exam Abdominal Exam: Normal Bowel Sounds, Soft and Tenderness (RECENT G-TUBE LEFT ABDOMEN/3DAYS AGO.) Extremities Extremities Exam: Normal Inspection and Normal Capillary Refill; negative Edema Back Back Exam: Normal Inspection; negative (R) CVA Tenderness and (L) CVA Tenderness Neurologic Neurological Exam: Alert and Oriented X3 Psychiatric Psychiatric Exam: Normal Affect and Anxious Skin Skin Exam: Dry MDM Differential Diagnosis Differential Diagnosis: Mycardial Infarction, Pneumothorax and Respiratory Insufficiency Differential Diagnosis Comment:: HEMOTHORAX, CHEST PAIN. COURSE Treatment Treatment: SEE ORDERS. Consultation Consultation Comments: DISCUSSED PATIENT WITH DR. HOOD. HE WILL ADMIT PATIENT. SURGERY CONSULT DR. WALLER. HE IS IN ER AND HAVE PLACE LEFT CHEST TUBE IN PATIENT. Education/Counseling Education/Counseling: Patient Educated On: Diagnosis ROR Labs Reviewed Laboratory Results Reviewed?: Yes Laboratory: Sample Site Rbra 12/26/19 14:26 ABG pH 7.320 (7.35-7.45) L 12/26/19 14:26 ABG pCO2 52.0 mmHg (35.0-45.0) H* 12/26/19 14:26 ABG pO2 74.0 mmHg (80.0-100.0) L 12/26/19 14:26 ABG HCO3 26.8 mmol/L (22-26) H 12/26/19 14:26 ABG O2 Saturation 93.0 % (90-100) 12/26/19 14:26 ABG Base Excess 0.0 mmol/L (-2.0-2.0) 12/26/19 14:26 Hakeem Test N/a 12/26/19 14:26 A-a Gradient 61.0 mmHg 12/26/19 14:26 FiO2 28.0 12/26/19 14:26 Blood Gas Comments Pt jeremiah well elj 12/26/19 14:26 XRAY XRAY Interpreted by: Radiologist (REPORT NOTED. SURGEON NOTIFIED.) EKG [place]: Normal Rhythm: ST (LOW VOLTAGE.) Block: None Hypertrophy: None ST: Normal Opioid Opioid Risk Tool Age (Ruel box if 16-45): No History of Preadolescent Sexual Abuse: No Total: 0 Total Score Risk Category: Low Risk Copyright: Sarabjit RICE predicting aberrant behaviors Diagnosis Discharge Problem: Bilateral pneumothorax, Acute respiratory distress Chest pain Qualifiers: Chest pain type: intercostal pain Qualified Code(s): R07.82 - Intercostal pain Instructions Instructions: PEG Tube Home Guide, Pabh-xe-Lybo Gastrostomy Tube Replacement Forms: Excuse From Work Precautions for COVID19 Patient Portal Social Distancing
[2019-12-26] MEDS ORDERED: ANCEF VIAL 1 GRAM ONE (15:18)
[2019-12-26] MEDS ORDERED: NS 1/2 1000 ML IV 1,000 ML IV ONE (15:18)
[2019-12-26] MEDS ORDERED: NS 100 ML IV 100 ML IV ONE (15:19)
--- NOTE | 2019-12-26 15:21 | RAD ---
HISTORYCHEST TUBE PLACEMENTSTUDYCHEST, 1 VIEWCOMPARISONChest x-ray dated same day and chest x-ray dated December 24, 2019.FINDINGSRight chest Port-A-Cath appears unchanged. The trachea is midline. The cardiac silhouette is unremarkable. Interval placement of a left chest tube with suggestion of a trace left pneumothorax. There is now a moderate-sized right pneumothorax. No significant mediastinal shift. No significant pleural effusion. The bony thorax is unremarkable.IMPRESSIONOne. Interval placement of a left chest tube with suggestion of a trace left residual pneumothorax.Two. There is now a moderate-sized right pneumothorax.Electronically signed by: MICA BANSAL (Dec 26, 2019 15:19:04)
[2019-12-26] MEDS ORDERED: NS IRRIGATION* 1,000 ML 1,000 ML ONE (15:25)
[2019-12-26] MEDS: NS 1/2 1000 ML IV 1,000 ML IV SCH (15:33)
[2019-12-26] MEDS ORDERED: ANCEF VIAL 1 GRAM IVP SCH (16:00)
[2019-12-26 17:13] LABS: BASOPHILS # (AUTO) 0.1 X10^3/uL (0.0-0.1); BASOPHILS % (AUTO) 0.5 % (0.2-1.0); EOSINOPHILS # (AUTO) 0.1 x10^3/uL (0.0-0.2); EOSINOPHILS % (AUTO) 0.6 % (0.9-2.9); HEMATOCRIT 28.3 % (42.0-54.0); HEMOGLOBIN 9.3 g/dL (13.5-18.0); LYMPHOCYTES # (AUTO) 5.2 X10^3/uL (1.3-2.9); LYMPHOCYTES % (AUTO) 31.3 % (21.0-51.0); MEAN CORPUSCULAR HEMOGLOBIN 28.5 pg (27.0-34.0); MEAN CORPUSCULAR HGB CONC 32.8 g/dL (33.0-35.0); MEAN CORPUSCULAR VOLUME 86.9 fL (80.0-100.0); MEAN PLATELET VOLUME 9.3 fL (7.4-11.0); MONOCYTES # (AUTO) 1.2 x10^3/uL (0.3-0.8); MONOCYTES % (AUTO) 7.1 % (0.0-13.0); NEUTROPHILS % (AUTO) 60.5 % (42.0-75.0); PLATELET COUNT 339 X10^3/uL (150.0-450.0); RED BLOOD COUNT 3.26 X10^6/uL (4.7-6.0); RED CELL DISTRIBUTION WIDTH 16.4 % (11.6-16.5); WHITE BLOOD COUNT 16.6 X10^3/uL (3.6-10.0)
[2019-12-26 17:22] LABS: ALANINE AMINOTRANSFERASE 35 Units/L (12-78); ALBUMIN 3.4 g/dL (3.4-5.0); ALKALINE PHOSPHATASE 98 Units/L (46-116); ASPARTATE AMINO TRANSFERASE 37 Units/L (15-37); BLOOD UREA NITROGEN 9 mg/dL (7-18); CALCIUM 8.7 mg/dL (8.5-10.1); CHLORIDE 99 mmol/L (98-107); COR NA(FOR HYPERGLY) 141 mmol/L (136-145); CREATININE 0.72 mg/dL (0.70-1.30); SODIUM 137 mmol/L (136-145); TOTAL PROTEIN 7.2 g/dL (6.4-8.2); eGFR NON BLACK RACES > 60 (>60)
[2019-12-26] MEDS ORDERED: ZOFRAN INJ 4 MG VIAL IVP PRN (17:36)
[2019-12-26] MEDS ORDERED: MORPHINE SULFATE INJ 2 MG INJ IVP PRN (17:36)
[2019-12-26] MEDS ORDERED: PHARMACY CONSULT LTC MEDICATIONS XX SCH (18:00)
[2019-12-26 18:08] LABS: CREATINE KINASE MB 1.2 ng/mL (0-4.0); TROPONIN I 0.1 ng/mL (0-1.5)
[2019-12-26] MEDS: HumuLIN R SUBCUT PRN (18:32)
[2019-12-26] MEDS: SNACK - Diabetic Appropriate PO SCH (20:30)
[2019-12-27] MEDS: ANCEF VIAL 1 GRAM IVP SCH ×3 (01:30→09:37)
[2019-12-27] MEDS ORDERED: NS 100 ML IV + SPIKE MINIBAG* 100 ML IV ONE (03:00)
[2019-12-27 05:55] LABS: BILIRUBIN,URINE NEGATIVE (NEGATIVE); BLOOD/HEMOGLOBIN,URINE 1+ (NEGATIVE); GLUCOSE, URINE 1+ (NEGATIVE); KETONES,URINE NEGATIVE (NEGATIVE); LEUKOCYTE ESTERASE ,URINE 1+ (NEGATIVE); NITRITES,URINE NEGATIVE (NEGATIVE); PROTEIN,URINE NEGATIVE (NEGATIVE); UROBILINOGEN,URINE NORMAL (NORMAL)
[2019-12-27 05:58] LABS: APPEARANCE,URINE CLEAR (CLEAR); BACTERIA,URINE NEGATIVE /HPF (NEGATIVE); COLOR,URINE YELLOW (YELLOW); RBC,URINE 0-2 /HPF (0-3); SQUAMOUS EPITHELIAL CELL,UR NEGATIVE /HPF (NEGATIVE)
[2019-12-27] MEDS ORDERED: NS 1/2 1000 ML IV 1,000 ML IV ONE (05:59)
[2019-12-27] MEDS: NS 1/2 1000 ML IV 1,000 ML IV SCH ×2 (06:06→18:51)
[2019-12-27 06:37] LABS: BASOPHILS # (AUTO) 0.1 X10^3/uL (0.0-0.1); BASOPHILS % (AUTO) 1.1 % (0.2-1.0); EOSINOPHILS # (AUTO) 0.1 x10^3/uL (0.0-0.2); EOSINOPHILS % (AUTO) 1.2 % (0.9-2.9); HEMATOCRIT 26.9 % (42.0-54.0); HEMOGLOBIN 9.1 g/dL (13.5-18.0); LYMPHOCYTES # (AUTO) 2.3 X10^3/uL (1.3-2.9); LYMPHOCYTES % (AUTO) 20.1 % (21.0-51.0); MEAN CORPUSCULAR HEMOGLOBIN 28.4 pg (27.0-34.0); MEAN CORPUSCULAR HGB CONC 33.8 g/dL (33.0-35.0); MEAN PLATELET VOLUME 8.5 fL (7.4-11.0); MONOCYTES # (AUTO) 0.7 x10^3/uL (0.3-0.8); NEUTROPHILS # (AUTO) 8.1 x10^3/uL (2.2-4.8); NEUTROPHILS % (AUTO) 71.6 % (42.0-75.0); PLATELET COUNT 278 X10^3/uL (150.0-450.0); RED CELL DISTRIBUTION WIDTH 16.7 % (11.6-16.5); WHITE BLOOD COUNT 11.3 X10^3/uL (3.6-10.0)
[2019-12-27 06:59] LABS: ALANINE AMINOTRANSFERASE 30 Units/L (12-78); ALBUMIN 2.9 g/dL (3.4-5.0); ALKALINE PHOSPHATASE 74 Units/L (46-116); ASPARTATE AMINO TRANSFERASE 35 Units/L (15-37); BLOOD UREA NITROGEN 8 mg/dL (7-18); CALCIUM 8.5 mg/dL (8.5-10.1); CARBON DIOXIDE 28.2 mmol/L (21-32); CHLORIDE 101 mmol/L (98-107); CKMB % 0.6 % (<4); COR CA(FOR HYPOALB) 9.4 mg/dL (8.5-10.1); CREATINE KINASE 157 Units/L (39-308); CREATINE KINASE MB < 1.0 ng/mL (0-4.0); MAGNESIUM 1.5 mg/dL (1.7-2.9); SODIUM 137 mmol/L (136-145); TOTAL PROTEIN 6.4 g/dL (6.4-8.2); TROPONIN I < 0.02 ng/mL (0-1.5); eGFR NON BLACK RACES > 60 (>60)
[2019-12-27] MEDS ORDERED: MICRO K EXTEN CAP 10 MEQ PO PRN (08:34)
[2019-12-27] MEDS ORDERED: POTASSIUM CHLORIDE LIQ 20 MEQ UDC PO PRN (08:34)
[2019-12-27] MEDS ORDERED: POTASSIUM CHL 60 MEQ/NS 0.45% 500 ML IV PRN (08:34)
[2019-12-27] MEDS ORDERED: KLOR-CON PO PRN (08:34)
[2019-12-27] MEDS ORDERED: POTASSIUM CHL 40 MEQ/NS 0.45% 500 ML IV PRN (08:34)
[2019-12-27] MEDS ORDERED: K-DUR TAB 20 MEQ PO PRN (08:34)
--- NOTE | 2019-12-27 08:38 | RAD ---
HISTORYpneumothoraxSTUDYCHEST, 1 VIEWCOMPARISONMultiple chest x-rays over the last several days.FINDINGSStable appearance of a right chest Port-A-Cath. Stable appearance of a left chest tube with suggestion of trace left pneumothorax. The trachea is midline. The cardiac silhouette is unremarkable. Moderate-sized right pneumothorax appears unchanged given technique. No significant mediastinal shift. No significant pleural effusion. The bony thorax is unremarkable.IMPRESSIONOne. Left chest tube with suggestion of trace left pneumothorax.Two. Moderate-sized right pneumothorax appears unchanged.Electronically signed by: MICA BANSAL (Dec 27, 2019 08:37:09)
[2019-12-27] MEDS ORDERED: K-RIDER 10 MEQ/NS 100 ML 20 MEQ/200 ML BAG IV ONE (09:00)
[2019-12-27] MEDS ORDERED: MAGNESIUM SULFATE 1 GRAM/100 mL PREMIX 2 G/200 ML BAG IV ONE (09:00)
[2019-12-27] MEDS ORDERED: NS 100 ML IV 100 ML IV ONE (09:01)
[2019-12-27] MEDS: MAGNESIUM SULFATE 1 GRAM/100 mL PREMIX 1 GM/100 ML BAG IV PRN (09:37)
[2019-12-27] MEDS: K-RIDER 10 MEQ/NS 100 ML 10 MEQ/100 ML BAG IV PRN ×2 (09:38→18:08)
--- NOTE | 2019-12-27 10:26 | DR.PROGNOT ---
Hospital Progress Notes - Progress Note for Day of: Progress Note Date: 12/27/19 - Chief Complaint Chief Complaint: Pt was admitted from the ER large Lt pneumothorax ( Pt had Rt port a cath placement not Rt and using the internal jugular ! ). Lt chest tube was place with good position and expanded lung . chest xray is showing moderate Rt pneumothorax ( post op xray was normal ). O2 sat is 100% and VS are stable - Past Medical Family Social History Past Med/Fam/Surg Hx: No changes since H&P Allergies: Allergies No Known Drug Allergies Allergy (Verified 10/20/18 18:36) - Review Of Systems ROS: No change since H&P - Vital Signs Vital Signs: Temperature 97.8 F Pulse Rate [Right Radial] 93 Pulse Rate 154 Respiratory Rate 20 Blood Pressure [Right Arm] 157/75 Blood Pressure [Left Arm] 139/70 Blood Pressure 239/116 O2 Sat by Pulse Oximetry 100 - Physical Exam Oriented: Normal Eyes: Normal Ear: Normal Nose: Normal Throat: Normal Respiratory: Right (diminished BS on Rt ) Cardiovascular: Normal : Normal GI:Auscultation: Normal GI:Palpation: Normal GI: Tenderness: Normal Skin: Normal Musculoskeletal: Normal Speech Pattern: Clear, Appropriate - Laboratory and Diagnostics Result Diagrams: 12/27/19 05:20 12/27/19 05:20 Labs: Laboratory WBC 11.3 X10^3/uL (3.6-10.0) H 12/27/19 05:20 RBC 3.20 X10^6/uL (4.7-6.0) L 12/27/19 05:20 Hgb 9.1 g/dL (13.5-18.0) L 12/27/19 05:20 Hct 26.9 % (42.0-54.0) L 12/27/19 05:20 MCV 84.0 fL (80.0-100.0) 12/27/19 05:20 MCH 28.4 pg (27.0-34.0) 12/27/19 05:20 MCHC 33.8 g/dL (33.0-35.0) 12/27/19 05:20 RDW 16.7 % (11.6-16.5) H 12/27/19 05:20 Plt Count 278 X10^3/uL (150.0-450.0) 12/27/19 05:20 MPV 8.5 fL (7.4-11.0) 12/27/19 05:20 Neut % (Auto) 71.6 % (42.0-75.0) 12/27/19 05:20 Lymph % (Auto) 20.1 % (21.0-51.0) L 12/27/19 05:20 Glascock % (Auto) 6.0 % (0.0-13.0) 12/27/19 05:20 Eos % (Auto) 1.2 % (0.9-2.9) 12/27/19 05:20 Baso % (Auto) 1.1 % (0.2-1.0) H 12/27/19 05:20 Neut # (Auto) 8.1 x10^3/uL (2.2-4.8) H 12/27/19 05:20 Lymph # (Auto) 2.3 X10^3/uL (1.3-2.9) 12/27/19 05:20 Glascock # (Auto) 0.7 x10^3/uL (0.3-0.8) 12/27/19 05:20 Eos # (Auto) 0.1 x10^3/uL (0.0-0.2) 12/27/19 05:20 Baso # (Auto) 0.1 X10^3/uL (0.0-0.1) 12/27/19 05:20 Absolute Nucleated RBC 0.1 /100WBC 12/27/19 05:20 Sample Site Rbra 12/26/19 14:26 ABG pH 7.320 (7.35-7.45) L 12/26/19 14:26 ABG pCO2 52.0 mmHg (35.0-45.0) H* 12/26/19 14:26 ABG pO2 74.0 mmHg (80.0-100.0) L 12/26/19 14:26 ABG HCO3 26.8 mmol/L (22-26) H 12/26/19 14:26 ABG O2 Saturation 93.0 % (90-100) 12/26/19 14:26 ABG Base Excess 0.0 mmol/L (-2.0-2.0) 12/26/19 14:26 Hakeem Test N/a 12/26/19 14:26 A-a Gradient 61.0 mmHg 12/26/19 14:26 FiO2 28.0 12/26/19 14:26 Blood Gas Comments Pt jeremiah well elj 12/26/19 14:26 Sodium 137 mmol/L (136-145) 12/27/19 05:20 Corrected Sodium TNP 12/27/19 05:20 Potassium 3.5 mmol/L (3.5-5.1) 12/27/19 05:20 Chloride 101 mmol/L (98-107) 12/27/19 05:20 Carbon Dioxide 28.2 mmol/L (21-32) 12/27/19 05:20 BUN 8 mg/dL (7-18) 12/27/19 05:20 Creatinine 0.40 mg/dL (0.70-1.30) L 12/27/19 05:20 Est GFR (MDRD) Af Amer > 60 (>60) 12/27/19 05:20 Est GFR (MDRD) Non-Af > 60 (>60) 12/27/19 05:20 Glucose 102 mg/dL (65-99) H 12/27/19 05:20 POC Glucose (mg/dL) 148 mg/dL (65-99) H 12/26/19 21:53 Calcium 8.5 mg/dL (8.5-10.1) 12/27/19 05:20 Corrected Calcium 9.4 mg/dL (8.5-10.1) 12/27/19 05:20 Magnesium 1.5 mg/dL (1.7-2.9) L 12/27/19 05:20 Total Bilirubin 0.20 mg/dL (0.2-1.0) 12/27/19 05:20 AST 35 Units/L (15-37) 12/27/19 05:20 ALT 30 Units/L (12-78) 12/27/19 05:20 Alkaline Phosphatase 74 Units/L (46-116) 12/27/19 05:20 Creatine Kinase 157 Units/L (39-308) 12/27/19 05:20 CK-MB (CK-2) < 1.0 ng/mL (0-4.0) 12/27/19 05:20 CK/CKMB % Calc 0.6 % (<4) 12/27/19 05:20 Troponin I < 0.02 ng/mL (0-1.5) 12/27/19 05:20 Total Protein 6.4 g/dL (6.4-8.2) 12/27/19 05:20 Albumin 2.9 g/dL (3.4-5.0) L 12/27/19 05:20 Globulin 3.5 g/dL (2.5-4.5) 12/27/19 05:20 Albumin/Globulin Ratio 0.8 Ratio (1.1-2.1) L 12/27/19 05:20 Specimen Type Catherized urine 12/27/19 05:10 Urine Color Yellow (YELLOW) 12/27/19 05:10 Urine Appearance Clear (CLEAR) 12/27/19 05:10 Urine pH 5.0 (5.0 - 8.0) 12/27/19 05:10 Ur Specific Hedrick 1.005 (1.000-1.030) 12/27/19 05:10 Urine Protein Negative (NEGATIVE) 12/27/19 05:10 Urine Glucose (UA) 1+ (NEGATIVE) 12/27/19 05:10 Urine Ketones Negative (NEGATIVE) 12/27/19 05:10 Urine Occult Blood 1+ (NEGATIVE) 12/27/19 05:10 Urine Nitrite Negative (NEGATIVE) 12/27/19 05:10 Urine Bilirubin Negative (NEGATIVE) 12/27/19 05:10 Urine Urobilinogen Normal (NORMAL) 12/27/19 05:10 Ur Leukocyte Esterase 1+ (NEGATIVE) 12/27/19 05:10 Urine RBC 0-2 /HPF (0-3) 12/27/19 05:10 Urine WBC 0-2 /HPF (0-5) 12/27/19 05:10 Ur Squamous Epith Cells Negative /HPF (NEGATIVE) 12/27/19 05:10 Urine Bacteria Negative /HPF (NEGATIVE) 12/27/19 05:10 Ur Culture Indicated? No/not indicated 12/27/19 05:10 - Assessment and Plan 1: Lt pneumothorax s/p placement of chest tube with good lung expansion . moderate Rt pneumothorax.. being observed . no need for chest tube now . rectal ca with mets . ( Pt is scheduled for chemo Tx ). CVA , and dysphagia . S/P placement of PEG tube .. Pt is stable .. to repeat chest xray in am .incentive spirometer . same feeding - Problem Patient Problems: Patient Problems Bilateral pneumothorax (Acute) J93.9 Chest pain (Acute) R07.9 Acute respiratory distress (Acute) R06.03
--- NOTE | 2019-12-27 13:03 | DR.H&P ---
H&P - History & Physical for Day of: H&P Date: 12/26/19 - Chief Complaint Chief Complaint: SOB - History of Present Illness History of Present Illness: PT IS 59 BM ER AMISSION WITH CO SOB AND TACHYCARDIA WITH PNEUMOTHORAX CONFIRMED ON CXR. PT HAD PORTACATH PLACEMENT EARLIER TODAY. PT HAD CHEST TUBE PLACEMENT, ADMITTED FOR TREATMENT AND EVALUATION OF ACUTE ILLNESS. - Past Medical History Past Medical History: Coronary Artery Disease, Diabetes, CVA, Seizures, GERD Additional Medical History: RECTAL CANCER - Past Surgical History Surgical History: Unknown - Social History Does patient currently use any type of tobacco product: No Have you used tobacco products in the last 12 months: No Type of Tobacco Use: None Does any household member use tobacco: No Alcohol Use: None Drug Use: None - Medications Home Medications: No Known Drug Allergies Allergy (Verified 10/20/18 18:36) - Review of Systems Constitutional: Weakness Eyes: No Symptoms Reported ENT: No Symptoms Reported Respiratory: Shortness of Breath Cardiovascular: No Symptoms Reported Genitourinary: No Symptoms Reported Musculoskeletal: No Symptoms Reported Skin: No Symptoms Reported Neurological: Weakness - Physical Exam Vital Signs: Temperature 97.8 F Pulse Rate [Right Radial] 93 Pulse Rate 154 Respiratory Rate 20 Blood Pressure [Right Arm] 157/75 Blood Pressure [Left Arm] 139/70 Blood Pressure 239/116 O2 Sat by Pulse Oximetry 100 Oriented: Normal Eyes: Normal Ear: Normal Nose: Normal Throat: Normal Respiratory: RLL Diminished, LLL Diminished Cardiovascular: Normal. negative: Edema : Normal Auscultation: Bowel Sounds: Normal Palpation: Normal Tenderness: Normal Skin: Decreased Turgur, Other (PEG TUBE PRESENT) Musculoskeletal: Leg, Motor Deficit, Instability, Crepitance Psychiatric: Normal Mood Description: Calm Speech Pattern: Clear, Appropriate - Assessment/Plan (1) Acute respiratory distress Status: Acute Plan: ADMIT, LEFT CHEST TUBE PLACEMENT PER DR WALLER. ADMISSION LABS, RESP THERAPY. SUPPLEMENTAL O2. CONTINUE G TUBE FEEDINGS, CONTINUE HOME MEDICATIONS. AM CXR (2) Bilateral pneumothorax Status: Acute (3) Diabetes mellitus Status: Chronic (4) Seizures Status: Chronic - Allergies Allergies/Adverse Reactions: Allergies Allergy/AdvReac Type Severity Reaction Status Date / Time No Known Drug Allergies Allergy Verified 10/20/18 18:36
[2019-12-27] MEDS: HumuLIN R SUBCUT PRN ×2 (17:00→21:14)
[2019-12-27] MEDS: SNACK - Diabetic Appropriate PO SCH (21:15)
[2019-12-28] MEDS ORDERED: NS 1/2 1000 ML IV 1,000 ML IV ONE (01:33)
[2019-12-28] MEDS ORDERED: D50W ABBOJECT SYR ONE (05:32)
[2019-12-28 05:56] LABS: ALANINE AMINOTRANSFERASE 26 Units/L (12-78); ALBUMIN 2.9 g/dL (3.4-5.0); ALKALINE PHOSPHATASE 59 Units/L (46-116); ASPARTATE AMINO TRANSFERASE 29 Units/L (15-37); BLOOD UREA NITROGEN 3 mg/dL (7-18); CALCIUM 8.7 mg/dL (8.5-10.1); CARBON DIOXIDE 32.1 mmol/L (21-32); CHLORIDE 100 mmol/L (98-107); COR CA(FOR HYPOALB) 9.6 mg/dL (8.5-10.1); CREATININE 0.49 mg/dL (0.70-1.30); SODIUM 138 mmol/L (136-145); TOTAL PROTEIN 6.7 g/dL (6.4-8.2); eGFR NON BLACK RACES > 60 (>60)
--- NOTE | 2019-12-28 06:00 | RAD ---
HISTORYfollow up on pneumothoraxSTUDYCHEST, 1 VIEWCOMPARISONChest x-ray dated December 27, 2019.FINDINGSStable appearance of a left chest tube with suggestion of a trace left pneumothorax. Stable appearance of a right chest Port-A-Cath. The trachea is midline. The cardiac silhouette is unremarkable. Moderate-sized right pneumothorax appears unchanged given technique. No significant pleural effusion. The bony thorax is unremarkable.IMPRESSIONOne. Left chest tube with suggestion of trace pneumothorax appears unchanged.Two. Moderate-sized right pneumothorax appears unchanged.Electronically signed by: MICA BANSAL (Dec 28, 2019 05:58:44)
[2019-12-28 06:18] LABS: BASOPHILS # (AUTO) 0.1 X10^3/uL (0.0-0.1); BASOPHILS % (AUTO) 1.1 % (0.2-1.0); EOSINOPHILS # (AUTO) 0.1 x10^3/uL (0.0-0.2); EOSINOPHILS % (AUTO) 1.4 % (0.9-2.9); HEMATOCRIT 24.9 % (42.0-54.0); HEMOGLOBIN 8.6 g/dL (13.5-18.0); LYMPHOCYTES # (AUTO) 2.5 X10^3/uL (1.3-2.9); LYMPHOCYTES % (AUTO) 23.8 % (21.0-51.0); MEAN CORPUSCULAR HEMOGLOBIN 28.9 pg (27.0-34.0); MEAN CORPUSCULAR HGB CONC 34.3 g/dL (33.0-35.0); MEAN CORPUSCULAR VOLUME 84.2 fL (80.0-100.0); MEAN PLATELET VOLUME 8.1 fL (7.4-11.0); MONOCYTES # (AUTO) 0.9 x10^3/uL (0.3-0.8); MONOCYTES % (AUTO) 8.5 % (0.0-13.0); NEUTROPHILS # (AUTO) 6.9 x10^3/uL (2.2-4.8); NEUTROPHILS % (AUTO) 65.2 % (42.0-75.0); PLATELET COUNT 311 X10^3/uL (150.0-450.0); RED BLOOD COUNT 2.96 X10^6/uL (4.7-6.0); RED CELL DISTRIBUTION WIDTH 16.2 % (11.6-16.5); WHITE BLOOD COUNT 10.5 X10^3/uL (3.6-10.0)
[2019-12-28] MEDS ORDERED: D50W ABBOJECT SYR IV ONE (06:23)
[2019-12-28] MEDS: NS 1/2 1000 ML IV 1,000 ML IV SCH ×2 (07:42→19:55)
--- NOTE | 2019-12-28 10:12 | DR.PROGNOT ---
Hospital Progress Notes - Progress Note for Day of: Progress Note Date: 12/28/19 - Chief Complaint Chief Complaint: comfortable with good oxygenation . no SOB or chest pain . chest xraty showed stable Rt pneumothorax with expanded Lt lung . tolerating diet and tube feeding . - Past Medical Family Social History Past Med/Fam/Surg Hx: No changes since H&P Allergies: Allergies No Known Drug Allergies Allergy (Verified 10/20/18 18:36) - Review Of Systems ROS: No change since H&P - Vital Signs Vital Signs: Temperature 97.4 F Pulse Rate [Left Brachial] 93 Pulse Rate [Right Radial] 100 Pulse Rate 154 Respiratory Rate 16 Blood Pressure [Right Arm] 150/79 Blood Pressure [Left Arm] 162/85 Blood Pressure 239/116 O2 Sat by Pulse Oximetry 100 - Physical Exam Oriented: Normal Eyes: Normal Ear: Normal Nose: Normal Throat: Normal Respiratory: Right (diminished BS on Rt ) Cardiovascular: Normal. negative: Edema : Normal GI:Auscultation: Normal GI:Palpation: Normal GI: Tenderness: Normal Skin: Decreased Turgur, Other (PEG TUBE PRESENT) Musculoskeletal: Leg, Motor Deficit, Instability, Crepitance Psychiatric: Normal Mood Description: Calm Speech Pattern: Appropriate - Laboratory and Diagnostics Result Diagrams: 12/28/19 04:44 12/28/19 05:58 Labs: Laboratory WBC 10.5 X10^3/uL (3.6-10.0) H 12/28/19 04:44 RBC 2.96 X10^6/uL (4.7-6.0) L 12/28/19 04:44 Hgb 8.6 g/dL (13.5-18.0) L 12/28/19 04:44 Hct 24.9 % (42.0-54.0) L 12/28/19 04:44 MCV 84.2 fL (80.0-100.0) 12/28/19 04:44 MCH 28.9 pg (27.0-34.0) 12/28/19 04:44 MCHC 34.3 g/dL (33.0-35.0) 12/28/19 04:44 RDW 16.2 % (11.6-16.5) 12/28/19 04:44 Plt Count 311 X10^3/uL (150.0-450.0) 12/28/19 04:44 MPV 8.1 fL (7.4-11.0) 12/28/19 04:44 Neut % (Auto) 65.2 % (42.0-75.0) 12/28/19 04:44 Lymph % (Auto) 23.8 % (21.0-51.0) 12/28/19 04:44 Rooks % (Auto) 8.5 % (0.0-13.0) 12/28/19 04:44 Eos % (Auto) 1.4 % (0.9-2.9) 12/28/19 04:44 Baso % (Auto) 1.1 % (0.2-1.0) H 12/28/19 04:44 Neut # (Auto) 6.9 x10^3/uL (2.2-4.8) H 12/28/19 04:44 Lymph # (Auto) 2.5 X10^3/uL (1.3-2.9) 12/28/19 04:44 Rooks # (Auto) 0.9 x10^3/uL (0.3-0.8) H 12/28/19 04:44 Eos # (Auto) 0.1 x10^3/uL (0.0-0.2) 12/28/19 04:44 Baso # (Auto) 0.1 X10^3/uL (0.0-0.1) 12/28/19 04:44 Absolute Nucleated RBC 0.0 /100WBC 12/28/19 04:44 Sample Site Rbra 12/26/19 14:26 ABG pH 7.320 (7.35-7.45) L 12/26/19 14:26 ABG pCO2 52.0 mmHg (35.0-45.0) H* 12/26/19 14:26 ABG pO2 74.0 mmHg (80.0-100.0) L 12/26/19 14:26 ABG HCO3 26.8 mmol/L (22-26) H 12/26/19 14:26 ABG O2 Saturation 93.0 % (90-100) 12/26/19 14:26 ABG Base Excess 0.0 mmol/L (-2.0-2.0) 12/26/19 14:26 Hakeem Test N/a 12/26/19 14:26 A-a Gradient 61.0 mmHg 12/26/19 14:26 FiO2 28.0 12/26/19 14:26 Blood Gas Comments Pt jeremiah well elj 12/26/19 14:26 Sodium 138 mmol/L (136-145) 12/28/19 04:44 Corrected Sodium TNP 12/28/19 04:44 Potassium 3.3 mmol/L (3.5-5.1) L 12/28/19 04:44 Chloride 100 mmol/L (98-107) 12/28/19 04:44 Carbon Dioxide 32.1 mmol/L (21-32) H 12/28/19 04:44 BUN 3 mg/dL (7-18) L 12/28/19 04:44 Creatinine 0.49 mg/dL (0.70-1.30) L 12/28/19 04:44 Est GFR (MDRD) Af Amer > 60 (>60) 12/28/19 04:44 Est GFR (MDRD) Non-Af > 60 (>60) 12/28/19 04:44 Glucose 173 mg/dL (65-99) H 12/28/19 05:58 POC Glucose (mg/dL) 151 mg/dL (65-99) H 12/27/19 12:20 Calcium 8.7 mg/dL (8.5-10.1) 12/28/19 04:44 Corrected Calcium 9.6 mg/dL (8.5-10.1) 12/28/19 04:44 Magnesium 1.8 mg/dL (1.7-2.9) 12/28/19 05:58 Iron 36 ug/dL (50-175) L 12/28/19 04:44 Transferrin 175 mg/dL (202-364) L 12/28/19 04:44 Ferritin 627 ng/mL (26-388) H 12/28/19 04:44 Total Bilirubin 0.20 mg/dL (0.2-1.0) 12/28/19 04:44 AST 29 Units/L (15-37) 12/28/19 04:44 ALT 26 Units/L (12-78) 12/28/19 04:44 Alkaline Phosphatase 59 Units/L (46-116) 12/28/19 04:44 Creatine Kinase 157 Units/L (39-308) 12/27/19 05:20 CK-MB (CK-2) < 1.0 ng/mL (0-4.0) 12/27/19 05:20 CK/CKMB % Calc 0.6 % (<4) 12/27/19 05:20 Troponin I < 0.02 ng/mL (0-1.5) 12/27/19 05:20 Total Protein 6.7 g/dL (6.4-8.2) 12/28/19 04:44 Albumin 2.9 g/dL (3.4-5.0) L 12/28/19 04:44 Globulin 3.8 g/dL (2.5-4.5) 12/28/19 04:44 Albumin/Globulin Ratio 0.8 Ratio (1.1-2.1) L 12/28/19 04:44 Vitamin B12 364 pg/mL (193-986) 12/28/19 04:44 Folate 12.5 ng/mL (>8.6) 12/28/19 04:44 Specimen Type Catherized urine 12/27/19 05:10 Urine Color Yellow (YELLOW) 12/27/19 05:10 Urine Appearance Clear (CLEAR) 12/27/19 05:10 Urine pH 5.0 (5.0 - 8.0) 12/27/19 05:10 Ur Specific Palmer 1.005 (1.000-1.030) 12/27/19 05:10 Urine Protein Negative (NEGATIVE) 12/27/19 05:10 Urine Glucose (UA) 1+ (NEGATIVE) 12/27/19 05:10 Urine Ketones Negative (NEGATIVE) 12/27/19 05:10 Urine Occult Blood 1+ (NEGATIVE) 12/27/19 05:10 Urine Nitrite Negative (NEGATIVE) 12/27/19 05:10 Urine Bilirubin Negative (NEGATIVE) 12/27/19 05:10 Urine Urobilinogen Normal (NORMAL) 12/27/19 05:10 Ur Leukocyte Esterase 1+ (NEGATIVE) 12/27/19 05:10 Urine RBC 0-2 /HPF (0-3) 12/27/19 05:10 Urine WBC 0-2 /HPF (0-5) 12/27/19 05:10 Ur Squamous Epith Cells Negative /HPF (NEGATIVE) 12/27/19 05:10 Urine Bacteria Negative /HPF (NEGATIVE) 12/27/19 05:10 Ur Culture Indicated? No/not indicated 12/27/19 05:10 - Assessment and Plan 1: Lt pneumothorax s/p placement of chest tube with good lung expansion . moderate Rt pneumothorax.. being observed . no need for chest tube now . rectal ca with mets . ( Pt is scheduled for chemo Tx ). CVA , and dysphagia . S/P placement of PEG tube .. Pt is stable .. to repeat chest xray in am .incentive spirometer . same feeding - Problem Patient Problems: Patient Problems Bilateral pneumothorax (Acute) J93.9 Chest pain (Acute) R07.9 Acute respiratory distress (Acute) R06.03
[2019-12-28] MEDS: MAGNESIUM SULFATE 1 GRAM/100 mL PREMIX 1 GM/100 ML BAG IV PRN ×2 (10:42→11:44)
[2019-12-28] MEDS: HumuLIN R SUBCUT PRN (16:53)
[2019-12-28] MEDS: SNACK - Diabetic Appropriate PO SCH (22:00)
[2019-12-29] MEDS: NS 1/2 1000 ML IV 1,000 ML IV SCH ×3 (00:49→22:44)
[2019-12-29 06:30] LABS: BASOPHILS # (AUTO) 0.1 X10^3/uL (0.0-0.1); BASOPHILS % (AUTO) 0.8 % (0.2-1.0); EOSINOPHILS # (AUTO) 0.3 x10^3/uL (0.0-0.2); EOSINOPHILS % (AUTO) 3.2 % (0.9-2.9); HEMATOCRIT 25.1 % (42.0-54.0); HEMOGLOBIN 8.6 g/dL (13.5-18.0); LYMPHOCYTES # (AUTO) 2.4 X10^3/uL (1.3-2.9); LYMPHOCYTES % (AUTO) 27.2 % (21.0-51.0); MEAN CORPUSCULAR HEMOGLOBIN 28.8 pg (27.0-34.0); MEAN CORPUSCULAR HGB CONC 34.2 g/dL (33.0-35.0); MEAN CORPUSCULAR VOLUME 84.2 fL (80.0-100.0); MEAN PLATELET VOLUME 7.9 fL (7.4-11.0); MONOCYTES # (AUTO) 0.7 x10^3/uL (0.3-0.8); NEUTROPHILS # (AUTO) 5.4 x10^3/uL (2.2-4.8); NEUTROPHILS % (AUTO) 60.8 % (42.0-75.0); PLATELET COUNT 270 X10^3/uL (150.0-450.0); RED BLOOD COUNT 2.98 X10^6/uL (4.7-6.0); RED CELL DISTRIBUTION WIDTH 16.3 % (11.6-16.5); WHITE BLOOD COUNT 8.9 X10^3/uL (3.6-10.0)
[2019-12-29 06:39] LABS: ALANINE AMINOTRANSFERASE 59 Units/L (12-78); ALBUMIN 2.9 g/dL (3.4-5.0); ALKALINE PHOSPHATASE 78 Units/L (46-116); ASPARTATE AMINO TRANSFERASE 55 Units/L (15-37); BLOOD UREA NITROGEN 6 mg/dL (7-18); CALCIUM 8.8 mg/dL (8.5-10.1); CARBON DIOXIDE 30.5 mmol/L (21-32); CHLORIDE 98 mmol/L (98-107); COR CA(FOR HYPOALB) 9.7 mg/dL (8.5-10.1); CREATININE 0.49 mg/dL (0.70-1.30); MAGNESIUM 1.6 mg/dL (1.7-2.9); SODIUM 133 mmol/L (136-145); TOTAL PROTEIN 6.6 g/dL (6.4-8.2); eGFR NON BLACK RACES > 60 (>60)
--- NOTE | 2019-12-29 07:00 | RAD ---
HISTORYFollow-up pneumothoraxSTUDYCHEST, 1 [id number]/2020FINDINGSThere is a port present on the right. There is a left chest tube in place. Small left apical pneumothorax is now present. Once again noted is a moderate right basilar pneumothorax not significantly changed from the prior examination. Heart mediastinal structures are normal in remain midline. The right lung and left upper lung onofre are clear. There is a small left lower lobe infiltrate present. Bony thorax is unremarkable.IMPRESSIONSmall left apical pneumothorax slightly larger than on the prior examinationNo change moderate right basilar pneumothorax without evidence for tensionSmall left lower lobe infiltrateElectronically signed by: RAMIRO DALTON (Dec 29, 2019 06:59:43)
[2019-12-29] MEDS ORDERED: NS 1/2 1000 ML IV 1,000 ML IV ONE ×2 (08:37→21:56)
[2019-12-29] MEDS: MAGNESIUM SULFATE 1 GRAM/100 mL PREMIX 1 GM/100 ML BAG IV PRN ×2 (09:27→10:43)
[2019-12-29] MEDS: HumuLIN R SUBCUT PRN ×2 (11:57→15:59)
--- NOTE | 2019-12-29 12:31 | DR.PROGNOT ---
Hospital Progress Notes - Progress Note for Day of: Progress Note Date: 12/29/19 - Chief Complaint Chief Complaint: comfortable with good oxygenation . no SOB or chest pain . chest xraty showed stable Rt pneumothorax and small Lt apical pneumothorax expanded Lt lung . tolerating diet and tube feeding . - Past Medical Family Social History Past Med/Fam/Surg Hx: No changes since H&P Allergies: Allergies No Known Drug Allergies Allergy (Verified 10/20/18 18:36) - Review Of Systems ROS: No change since H&P - Vital Signs Vital Signs: Temperature 97.8 F Pulse Rate [Left Brachial] 96 Pulse Rate [Right Radial] 100 Pulse Rate 154 Respiratory Rate 20 Blood Pressure [Right Arm] 150/79 Blood Pressure [Left Arm] 130/75 Blood Pressure 239/116 O2 Sat by Pulse Oximetry 100 - Physical Exam Oriented: Normal Eyes: Normal Ear: Normal Nose: Normal Throat: Normal Respiratory: Right (diminished BS on Rt ) Cardiovascular: Normal. negative: Edema : Normal GI:Auscultation: Normal GI:Palpation: Normal GI: Tenderness: Normal Skin: Decreased Turgur, Other (PEG TUBE PRESENT) Musculoskeletal: Leg, Motor Deficit, Instability, Crepitance Psychiatric: Normal Mood Description: Calm Speech Pattern: Appropriate - Laboratory and Diagnostics Result Diagrams: 12/29/19 05:22 12/29/19 05:22 Labs: Laboratory WBC 8.9 X10^3/uL (3.6-10.0) 12/29/19 05:22 RBC 2.98 X10^6/uL (4.7-6.0) L 12/29/19 05:22 Hgb 8.6 g/dL (13.5-18.0) L 12/29/19 05:22 Hct 25.1 % (42.0-54.0) L 12/29/19 05:22 MCV 84.2 fL (80.0-100.0) 12/29/19 05:22 MCH 28.8 pg (27.0-34.0) 12/29/19 05:22 MCHC 34.2 g/dL (33.0-35.0) 12/29/19 05:22 RDW 16.3 % (11.6-16.5) 12/29/19 05:22 Plt Count 270 X10^3/uL (150.0-450.0) 12/29/19 05:22 MPV 7.9 fL (7.4-11.0) 12/29/19 05:22 Neut % (Auto) 60.8 % (42.0-75.0) 12/29/19 05:22 Lymph % (Auto) 27.2 % (21.0-51.0) 12/29/19 05:22 [place] % (Auto) 8.0 % (0.0-13.0) 12/29/19 05:22 Eos % (Auto) 3.2 % (0.9-2.9) H 12/29/19 05:22 Baso % (Auto) 0.8 % (0.2-1.0) 12/29/19 05:22 Neut # (Auto) 5.4 x10^3/uL (2.2-4.8) H 12/29/19 05:22 Lymph # (Auto) 2.4 X10^3/uL (1.3-2.9) 12/29/19 05:22 [place] # (Auto) 0.7 x10^3/uL (0.3-0.8) 12/29/19 05:22 Eos # (Auto) 0.3 x10^3/uL (0.0-0.2) H 12/29/19 05:22 Baso # (Auto) 0.1 X10^3/uL (0.0-0.1) 12/29/19 05:22 Absolute Nucleated RBC 0.0 /100WBC 12/29/19 05:22 Sample Site Rbra 12/26/19 14:26 ABG pH 7.320 (7.35-7.45) L 12/26/19 14:26 ABG pCO2 52.0 mmHg (35.0-45.0) H* 12/26/19 14:26 ABG pO2 74.0 mmHg (80.0-100.0) L 12/26/19 14:26 ABG HCO3 26.8 mmol/L (22-26) H 12/26/19 14:26 ABG O2 Saturation 93.0 % (90-100) 12/26/19 14:26 ABG Base Excess 0.0 mmol/L (-2.0-2.0) 12/26/19 14:26 [place] Test N/a 12/26/19 14:26 A-a Gradient 61.0 mmHg 12/26/19 14:26 FiO2 28.0 12/26/19 14:26 Blood Gas Comments Pt jeremiah well elj 12/26/19 14:26 Sodium 133 mmol/L (136-145) L 12/29/19 05:22 Corrected Sodium TNP 12/29/19 05:22 Potassium 4.5 mmol/L (3.5-5.1) 12/29/19 05:22 Chloride 98 mmol/L (98-107) 12/29/19 05:22 Carbon Dioxide 30.5 mmol/L (21-32) 12/29/19 05:22 BUN 6 mg/dL (7-18) L 12/29/19 05:22 Creatinine 0.49 mg/dL (0.70-1.30) L 12/29/19 05:22 Est GFR (MDRD) Af Amer > 60 (>60) 12/29/19 05:22 Est GFR (MDRD) Non-Af > 60 (>60) 12/29/19 05:22 Glucose 103 mg/dL (65-99) H 12/29/19 05:22 POC Glucose (mg/dL) 242 mg/dL (65-99) H 12/29/19 11:54 Calcium 8.8 mg/dL (8.5-10.1) 12/29/19 05:22 Corrected Calcium 9.7 mg/dL (8.5-10.1) 12/29/19 05:22 Magnesium 1.6 mg/dL (1.7-2.9) L 12/29/19 05:22 Iron 36 ug/dL (50-175) L 12/28/19 04:44 Transferrin 175 mg/dL (202-364) L 12/28/19 04:44 Ferritin 627 ng/mL (26-388) H 12/28/19 04:44 Total Bilirubin 0.20 mg/dL (0.2-1.0) 12/29/19 05:22 AST 55 Units/L (15-37) H 12/29/19 05:22 ALT 59 Units/L (12-78) 12/29/19 05:22 Alkaline Phosphatase 78 Units/L (46-116) 12/29/19 05:22 Creatine Kinase 157 Units/L (39-308) 12/27/19 05:20 CK-MB (CK-2) < 1.0 ng/mL (0-4.0) 12/27/19 05:20 CK/CKMB % Calc 0.6 % (<4) 12/27/19 05:20 Troponin I < 0.02 ng/mL (0-1.5) 12/27/19 05:20 Total Protein 6.6 g/dL (6.4-8.2) 12/29/19 05:22 Albumin 2.9 g/dL (3.4-5.0) L 12/29/19 05:22 Globulin 3.7 g/dL (2.5-4.5) 12/29/19 05:22 Albumin/Globulin Ratio 0.8 Ratio (1.1-2.1) L 12/29/19 05:22 Vitamin B12 364 pg/mL (193-986) 12/28/19 04:44 Folate 12.5 ng/mL (>8.6) 12/28/19 04:44 Specimen Type Catherized urine 12/27/19 05:10 Urine Color Yellow (YELLOW) 12/27/19 05:10 Urine Appearance Clear (CLEAR) 12/27/19 05:10 Urine pH 5.0 (5.0 - 8.0) 12/27/19 05:10 Ur Specific [place] 1.005 (1.000-1.030) 12/27/19 05:10 Urine Protein Negative (NEGATIVE) 12/27/19 05:10 Urine Glucose (UA) 1+ (NEGATIVE) 12/27/19 05:10 Urine Ketones Negative (NEGATIVE) 12/27/19 05:10 Urine Occult Blood 1+ (NEGATIVE) 12/27/19 05:10 Urine Nitrite Negative (NEGATIVE) 12/27/19 05:10 Urine Bilirubin Negative (NEGATIVE) 12/27/19 05:10 Urine Urobilinogen Normal (NORMAL) 12/27/19 05:10 Ur Leukocyte Esterase 1+ (NEGATIVE) 12/27/19 05:10 Urine RBC 0-2 /HPF (0-3) 12/27/19 05:10 Urine WBC 0-2 /HPF (0-5) 12/27/19 05:10 Ur Squamous Epith Cells Negative /HPF (NEGATIVE) 12/27/19 05:10 Urine Bacteria Negative /HPF (NEGATIVE) 12/27/19 05:10 Ur Culture Indicated? No/not indicated 12/27/19 05:10 - Assessment and Plan 1: Lt pneumothorax s/p placement of chest tube with good lung expansion . moderate Rt pneumothorax.. being observed . no need for chest tube now . rectal ca with mets . ( Pt is scheduled for chemo Tx ). moderate anemia. CVA , and dysphagia . S/P placement of PEG tube .. Pt is stable .. to repeat chest xray in am .incentive spirometer . same feeding . same chest tube management - Problem Patient Problems: Patient Problems Bilateral pneumothorax (Acute) J93.9 Chest pain (Acute) R07.9 Acute respiratory distress (Acute) R06.03
[2019-12-29] MEDS: SNACK - Diabetic Appropriate PO SCH ×2 (20:39→20:40)
[2019-12-29] MEDS ORDERED: PROTONIX TAB 40 MG PO SCH (21:00)
[2019-12-29] MEDS: ZOLOFT PO SCH (21:30)
[2019-12-29] MEDS: LEVETIRACETAM 500 MG PO SCH (21:31)
[2019-12-30 06:39] LABS: BASOPHILS # (AUTO) 0.1 X10^3/uL (0.0-0.1); BASOPHILS % (AUTO) 1.2 % (0.2-1.0); EOSINOPHILS # (AUTO) 0.3 x10^3/uL (0.0-0.2); EOSINOPHILS % (AUTO) 2.8 % (0.9-2.9); HEMATOCRIT 23.9 % (42.0-54.0); HEMOGLOBIN 8.1 g/dL (13.5-18.0); LYMPHOCYTES # (AUTO) 2.9 X10^3/uL (1.3-2.9); LYMPHOCYTES % (AUTO) 24.1 % (21.0-51.0); MEAN CORPUSCULAR HEMOGLOBIN 28.7 pg (27.0-34.0); MEAN CORPUSCULAR HGB CONC 33.9 g/dL (33.0-35.0); MEAN CORPUSCULAR VOLUME 84.8 fL (80.0-100.0); MEAN PLATELET VOLUME 7.9 fL (7.4-11.0); MONOCYTES # (AUTO) 0.9 x10^3/uL (0.3-0.8); MONOCYTES % (AUTO) 7.8 % (0.0-13.0); NEUTROPHILS # (AUTO) 7.6 x10^3/uL (2.2-4.8); NEUTROPHILS % (AUTO) 64.1 % (42.0-75.0); PLATELET COUNT 300 X10^3/uL (150.0-450.0); RED BLOOD COUNT 2.82 X10^6/uL (4.7-6.0); RED CELL DISTRIBUTION WIDTH 16.8 % (11.6-16.5); WHITE BLOOD COUNT 11.9 X10^3/uL (3.6-10.0)
[2019-12-30 07:02] LABS: ALANINE AMINOTRANSFERASE 69 Units/L (12-78); ALBUMIN 3.1 g/dL (3.4-5.0); ALKALINE PHOSPHATASE 83 Units/L (46-116); ASPARTATE AMINO TRANSFERASE 50 Units/L (15-37); BLOOD UREA NITROGEN 5 mg/dL (7-18); CALCIUM 9.2 mg/dL (8.5-10.1); CARBON DIOXIDE 30.9 mmol/L (21-32); CHLORIDE 99 mmol/L (98-107); COR CA(FOR HYPOALB) 9.9 mg/dL (8.5-10.1); COR NA(FOR HYPERGLY) 134 mmol/L (136-145); CREATININE 0.53 mg/dL (0.70-1.30); MAGNESIUM 1.5 mg/dL (1.7-2.9); SODIUM 133 mmol/L (136-145); TOTAL PROTEIN 6.8 g/dL (6.4-8.2); eGFR NON BLACK RACES > 60 (>60)
--- NOTE | 2019-12-30 08:07 | RAD ---
HISTORYPOST CHEST TUBESTUDYCHEST, 1 VIEWCOMPARISONPrevious chest radiograph from 12/2019FINDINGSModerate size right basilar pneumothorax is noted, unchanged since previous exam. A small left apical pneumothorax is also seen. Left chest tube is unchanged in position.Heart size and pulmonary vasculature normal. Minimal atelectasis is present at the left base. Otherwise lungs are clear. Right chest wall port is again seen with the tip of the catheter in the superior vena cava. Bony thorax is unremarkable.IMPRESSION1. No change in moderate right basilar pneumothorax.2. Small left apical pneumothorax again seen, probably unchanged since the previous exam as well.Electronically signed by: RONALD SALAMANCA (Dec 30, 2019 08:05:56)
[2019-12-30] MEDS ORDERED: KEPPRA ORAL SOLN ONE (08:34)
--- NOTE | 2019-12-30 09:55 | DR.PROGNOT ---
Hospital Progress Notes - Progress Note for Day of: Progress Note Date: 12/30/19 - Chief Complaint Chief Complaint: comfortable with good oxygenation . no SOB or chest pain . chest xraty showed stable Rt pneumothorax and small Lt apical pneumothorax expanded Lt lung . tolerating diet and tube feeding . - Past Medical Family Social History Past Med/Fam/Surg Hx: No changes since H&P Allergies: Allergies No Known Drug Allergies Allergy (Verified 10/20/18 18:36) - Review Of Systems ROS: No change since H&P - Vital Signs Vital Signs: Temperature 97.9 F Pulse Rate [Left Brachial] 95 Pulse Rate [Right Radial] 100 Pulse Rate 154 Respiratory Rate 16 Blood Pressure [Right Arm] 132/67 Blood Pressure [Left Arm] 148/73 Blood Pressure 239/116 O2 Sat by Pulse Oximetry 100 - Physical Exam Oriented: Normal Eyes: Normal Ear: Normal Nose: Normal Throat: Normal Respiratory: Right (diminished BS on Rt ) Cardiovascular: Normal. negative: Edema : Normal GI:Auscultation: Normal GI:Palpation: Normal GI: Tenderness: Normal Skin: Decreased Turgur, Other (PEG TUBE PRESENT) Musculoskeletal: Leg, Motor Deficit, Instability, Crepitance Psychiatric: Normal Mood Description: Calm Speech Pattern: Appropriate, Unclear - Laboratory and Diagnostics Result Diagrams: 12/30/19 05:56 12/30/19 05:56 Labs: Laboratory WBC 11.9 X10^3/uL (3.6-10.0) H 12/30/19 05:56 RBC 2.82 X10^6/uL (4.7-6.0) L 12/30/19 05:56 Hgb 8.1 g/dL (13.5-18.0) L 12/30/19 05:56 Hct 23.9 % (42.0-54.0) L 12/30/19 05:56 MCV 84.8 fL (80.0-100.0) 12/30/19 05:56 MCH 28.7 pg (27.0-34.0) 12/30/19 05:56 MCHC 33.9 g/dL (33.0-35.0) 12/30/19 05:56 RDW 16.8 % (11.6-16.5) H 12/30/19 05:56 Plt Count 300 X10^3/uL (150.0-450.0) 12/30/19 05:56 MPV 7.9 fL (7.4-11.0) 12/30/19 05:56 Neut % (Auto) 64.1 % (42.0-75.0) 12/30/19 05:56 Lymph % (Auto) 24.1 % (21.0-51.0) 12/30/19 05:56 [place] % (Auto) 7.8 % (0.0-13.0) 12/30/19 05:56 Eos % (Auto) 2.8 % (0.9-2.9) 12/30/19 05:56 Baso % (Auto) 1.2 % (0.2-1.0) H 12/30/19 05:56 Neut # (Auto) 7.6 x10^3/uL (2.2-4.8) H 12/30/19 05:56 Lymph # (Auto) 2.9 X10^3/uL (1.3-2.9) 12/30/19 05:56 [place] # (Auto) 0.9 x10^3/uL (0.3-0.8) H 12/30/19 05:56 Eos # (Auto) 0.3 x10^3/uL (0.0-0.2) H 12/30/19 05:56 Baso # (Auto) 0.1 X10^3/uL (0.0-0.1) 12/30/19 05:56 Absolute Nucleated RBC 0.1 /100WBC 12/30/19 05:56 Sample Site Rbra 12/26/19 14:26 ABG pH 7.320 (7.35-7.45) L 12/26/19 14:26 ABG pCO2 52.0 mmHg (35.0-45.0) H* 12/26/19 14:26 ABG pO2 74.0 mmHg (80.0-100.0) L 12/26/19 14:26 ABG HCO3 26.8 mmol/L (22-26) H 12/26/19 14:26 ABG O2 Saturation 93.0 % (90-100) 12/26/19 14:26 ABG Base Excess 0.0 mmol/L (-2.0-2.0) 12/26/19 14:26 [place] Test N/a 12/26/19 14:26 A-a Gradient 61.0 mmHg 12/26/19 14:26 FiO2 28.0 12/26/19 14:26 Blood Gas Comments Pt jeremiah well elj 12/26/19 14:26 Sodium 133 mmol/L (136-145) L 12/30/19 05:56 Corrected Sodium 134 mmol/L (136-145) L 12/30/19 05:56 Potassium 5.2 mmol/L (3.5-5.1) H 12/30/19 05:56 Chloride 99 mmol/L (98-107) 12/30/19 05:56 Carbon Dioxide 30.9 mmol/L (21-32) 12/30/19 05:56 BUN 5 mg/dL (7-18) L 12/30/19 05:56 Creatinine 0.53 mg/dL (0.70-1.30) L 12/30/19 05:56 Est GFR (MDRD) Af Amer > 60 (>60) 12/30/19 05:56 Est GFR (MDRD) Non-Af > 60 (>60) 12/30/19 05:56 Glucose 149 mg/dL (65-99) H 12/30/19 05:56 POC Glucose (mg/dL) 135 mg/dL (65-99) H 12/30/19 05:48 Calcium 9.2 mg/dL (8.5-10.1) 12/30/19 05:56 Corrected Calcium 9.9 mg/dL (8.5-10.1) 12/30/19 05:56 Magnesium 1.5 mg/dL (1.7-2.9) L 12/30/19 05:56 Iron 36 ug/dL (50-175) L 12/28/19 04:44 Transferrin 175 mg/dL (202-364) L 12/28/19 04:44 Ferritin 627 ng/mL (26-388) H 12/28/19 04:44 Total Bilirubin 0.20 mg/dL (0.2-1.0) 12/30/19 05:56 AST 50 Units/L (15-37) H 12/30/19 05:56 ALT 69 Units/L (12-78) 12/30/19 05:56 Alkaline Phosphatase 83 Units/L (46-116) 12/30/19 05:56 Creatine Kinase 157 Units/L (39-308) 12/27/19 05:20 CK-MB (CK-2) < 1.0 ng/mL (0-4.0) 12/27/19 05:20 CK/CKMB % Calc 0.6 % (<4) 12/27/19 05:20 Troponin I < 0.02 ng/mL (0-1.5) 12/27/19 05:20 Total Protein 6.8 g/dL (6.4-8.2) 12/30/19 05:56 Albumin 3.1 g/dL (3.4-5.0) L 12/30/19 05:56 Globulin 3.7 g/dL (2.5-4.5) 12/30/19 05:56 Albumin/Globulin Ratio 0.8 Ratio (1.1-2.1) L 12/30/19 05:56 Vitamin B12 364 pg/mL (193-986) 12/28/19 04:44 Folate 12.5 ng/mL (>8.6) 12/28/19 04:44 Specimen Type Catherized urine 12/27/19 05:10 Urine Color Yellow (YELLOW) 12/27/19 05:10 Urine Appearance Clear (CLEAR) 12/27/19 05:10 Urine pH 5.0 (5.0 - 8.0) 12/27/19 05:10 Ur Specific [place] 1.005 (1.000-1.030) 12/27/19 05:10 Urine Protein Negative (NEGATIVE) 12/27/19 05:10 Urine Glucose (UA) 1+ (NEGATIVE) 12/27/19 05:10 Urine Ketones Negative (NEGATIVE) 12/27/19 05:10 Urine Occult Blood 1+ (NEGATIVE) 12/27/19 05:10 Urine Nitrite Negative (NEGATIVE) 12/27/19 05:10 Urine Bilirubin Negative (NEGATIVE) 12/27/19 05:10 Urine Urobilinogen Normal (NORMAL) 12/27/19 05:10 Ur Leukocyte Esterase 1+ (NEGATIVE) 12/27/19 05:10 Urine RBC 0-2 /HPF (0-3) 12/27/19 05:10 Urine WBC 0-2 /HPF (0-5) 12/27/19 05:10 Ur Squamous Epith Cells Negative /HPF (NEGATIVE) 12/27/19 05:10 Urine Bacteria Negative /HPF (NEGATIVE) 12/27/19 05:10 Ur Culture Indicated? No/not indicated 12/27/19 05:10 - Assessment and Plan 1: Lt pneumothorax s/p placement of chest tube with good lung expansion . moder ate Rt pneumothorax.. rectal ca with mets . ( Pt is scheduled for chemo Tx ). moderate anemia. CVA , and dysphagia . S/P placement of PEG tube .. Pt is stable .. to repeat chest xray in am .incentive spirometer . same feeding . same chest tube management . to clamp chest tube in am .. - Problem Patient Problems: Patient Problems Bilateral pneumothorax (Acute) J93.9 Chest pain (Acute) R07.9 Acute respiratory distress (Acute) R06.03
[2019-12-30] MEDS ORDERED: NS 1/2 1000 ML IV 1,000 ML IV ONE (10:26)
[2019-12-30] MEDS: NS 1/2 1000 ML IV 1,000 ML IV SCH (10:37)
[2019-12-30] MEDS: LEVETIRACETAM 500 MG PO SCH ×2 (10:37→21:33)
[2019-12-30] MEDS: PROTONIX INJ 40 MG VIAL IVP SCH ×2 (10:37→21:34)
[2019-12-30] MEDS: MAGNESIUM SULFATE 1 GRAM/100 mL PREMIX 1 GM/100 ML BAG IV PRN ×2 (14:29→15:58)
[2019-12-30] MEDS: HumuLIN R SUBCUT PRN ×2 (17:11→21:34)
[2019-12-30] MEDS: LEVAQUIN PREMIX IV 500 MG 500 MG/100 ML BAG IV SCH (19:19)
[2019-12-30] MEDS: ZOLOFT PO SCH (21:34)
[2019-12-31] MEDS: NS 1/2 1000 ML IV 1,000 ML IV SCH ×2 (00:10→17:30)
[2019-12-31] MEDS ORDERED: NS 1/2 1000 ML IV 1,000 ML IV ONE ×2 (00:17→17:30)
--- NOTE | 2019-12-31 06:25 | RAD ---
HISTORYFollow-up chest tube placementSTUDYCHEST, 1 [id number]/21/2020FINDINGSThere is a right-sided port present. There is a left-sided chest tube present. No definite residual left pneumothorax is identified. Right basilar pneumothorax is slightly smaller. There is a tiny right apical pneumothorax present. Heart size is normal. Fatimah are normal. Lung onofre are clear. Bony thorax is unremarkable.IMPRESSIONSlight decrease in the size of the right basilar pneumothorax being followed. New tiny right apical pneumothoraxNo definite residual left apical pneumothoraxLungs clearElectronically signed by: RAMIRO DALTON (Dec 31, 2019 06:23:25)
[2019-12-31 06:54] LABS: BASOPHILS # (AUTO) 0.1 X10^3/uL (0.0-0.1); BASOPHILS % (AUTO) 0.9 % (0.2-1.0); EOSINOPHILS # (AUTO) 0.2 x10^3/uL (0.0-0.2); HEMATOCRIT 25.1 % (42.0-54.0); HEMOGLOBIN 8.4 g/dL (13.5-18.0); LYMPHOCYTES # (AUTO) 2.1 X10^3/uL (1.3-2.9); LYMPHOCYTES % (AUTO) 17.6 % (21.0-51.0); MEAN CORPUSCULAR HEMOGLOBIN 28.5 pg (27.0-34.0); MEAN CORPUSCULAR HGB CONC 33.3 g/dL (33.0-35.0); MEAN CORPUSCULAR VOLUME 85.6 fL (80.0-100.0); MEAN PLATELET VOLUME 7.7 fL (7.4-11.0); MONOCYTES % (AUTO) 8.5 % (0.0-13.0); NEUTROPHILS # (AUTO) 8.3 x10^3/uL (2.2-4.8); PLATELET COUNT 307 X10^3/uL (150.0-450.0); RED BLOOD COUNT 2.93 X10^6/uL (4.7-6.0); RED CELL DISTRIBUTION WIDTH 16.6 % (11.6-16.5); WHITE BLOOD COUNT 11.7 X10^3/uL (3.6-10.0)
[2019-12-31 07:04] LABS: ALANINE AMINOTRANSFERASE 50 Units/L (12-78); ALBUMIN 3.1 g/dL (3.4-5.0); ALKALINE PHOSPHATASE 75 Units/L (46-116); ASPARTATE AMINO TRANSFERASE 28 Units/L (15-37); BLOOD UREA NITROGEN 5 mg/dL (7-18); CALCIUM 9.5 mg/dL (8.5-10.1); CARBON DIOXIDE 33.5 mmol/L (21-32); CHLORIDE 99 mmol/L (98-107); COR CA(FOR HYPOALB) 10.2 mg/dL (8.5-10.1); CREATININE 0.62 mg/dL (0.70-1.30); MAGNESIUM 1.6 mg/dL (1.7-2.9); SODIUM 135 mmol/L (136-145); TOTAL PROTEIN 7.2 g/dL (6.4-8.2); eGFR NON BLACK RACES > 60 (>60)
--- NOTE | 2019-12-31 09:26 | RAD ---
HISTORYPOST LT CHEST TUBE W/ HX OF [place] PNEUMOTHORAXSTUDYCHEST, 1 VIEWCOMPARISONApril 22 at 4:35 a.m.TECHNIQUEPortable chest x-rayFINDINGSThere is a residual deep sulcus sign associated with the right lung base corresponding to a pneumothorax. The pneumothorax can also be faintly visualized at the right apex and along the lateral chest wall. There is no significant progression overall. No significant mediastinal shift is observed. Left-sided pneumothorax is decompressed following chest tube placement. The lungs remain grossly clear. The heart size and mediastinal contours are normal. Right-sided chest port remains adequately positioned. No acute osseous abnormalities are demonstratedIMPRESSIONNo significant overall progression in the right-sided pneumothorax, as described above.No interval re-expansion of left-sided pneumothorax following chest tube placement.Lungs remain clear.Electronically signed by: OSIRIS WARD (Dec 31, 2019 09:24:49)
[2019-12-31] MEDS: LEVAQUIN PREMIX IV 500 MG 500 MG/100 ML BAG IV SCH (10:02)
[2019-12-31] MEDS: COLACE CAP 100 MG PO SCH ×2 (10:03→21:00)
[2019-12-31] MEDS: PROTONIX INJ 40 MG VIAL IVP SCH ×2 (10:03→21:00)
[2019-12-31] MEDS: LEVETIRACETAM 500 MG PO SCH ×2 (10:05→21:00)
--- NOTE | 2019-12-31 17:01 | RAD ---
HISTORYCHEST TUBE REMOVALSTUDYCHEST, 1 [id number]/2020 at 9:06 a.m.FINDINGSThe heart is normal. The pulmonary vessels are normal. There is a right Port-A-Cath in place which is unchanged. There are hazy bibasilar opacities which are less prominent. No effusion is seen. There is small pneumothorax localized to the right lower chest laterally which is slightly smaller in size. There is no pneumothorax on the left. No effusion is seen.IMPRESSIONStatus post removal of the left chest tube with no residual pneumothorax.Slowly resolving small pneumothorax localized to the right lower chest. Recommend continued follow-up to assure resolution.Slowly resolving bibasilar atelectasis or infiltrates.No change in the right Port-A-Cath.Electronically signed by: MICA JANE (Dec 31, 2019 17:00:26)
--- NOTE | 2019-12-31 17:22 | PCM.PROG ---
Progress Note - Progress Note for Day of Date of Exam: 12/31/19 - Subjective Subjective: Mr. Baires is a 59-year-old black male patient of ours from [facility] admitted with pneumothorax, followed by Dr. Hernandes. Chest xray this am Status post removal of the left chest tube. with no residual pneumothorax. Slowly resolving small pneumothorax. localized to the right lower chest. Recommend continued follow-up to assure. resolution. Slowly resolving bibasilar atelectasis or infiltrates. Pt on IV Levaquin 500 mg daily. He has been attempting p.o. intake. He also has a feeding tube. This morning, he is not as awake and alert as he was yesterday. He does have as needed morphine ordered. I am not sure if he received it right before exam but he did appear to be sleepier this morning. - Past Medical Family Social History Past Med/Fam/Surg Hx: No changes since H&P Allergies: Allergies No Known Drug Allergies Allergy (Verified 10/20/18 18:36) - Review of Systems ROS: No change since H&P - Vital Signs and I&O's Vital Signs: Temperature 98.8 F Pulse Rate [Left Brachial] 113 Pulse Rate [Right Radial] 100 Pulse Rate 154 Respiratory Rate 20 Blood Pressure [Right Arm] 132/67 Blood Pressure [Left Arm] 153/75 Blood Pressure 239/116 O2 Sat by Pulse Oximetry 100 Intake and Output: Intake & Output 12/29/19 12/30/19 12/31/19 01/01/20 11:59 11:59 11:59 11:59 Intake Total 2912 / 2912 2995 / 2995 2710 / 2710 300 / 300 Output Total 2883 / 2883 3792 / 3792 3900 / 3900 900 / 900 Balance -797 / -797 -1190 / -1190 -600 / -600 - Physical Exam Oriented: Normal Eyes: Normal Ear: Normal Nose: Normal Throat: Normal Respiratory: Right (diminished BS on Rt ) Cardiovascular: Normal. negative: Edema : Normal Auscultation: Bowel Sounds: Normal Tenderness: Normal Skin: Decreased Turgur, Other (PEG TUBE PRESENT) Musculoskeletal: Leg, Motor Deficit, Instability, Crepitance Psychiatric: Normal Mood Description: Calm Speech Pattern: Appropriate, Unclear - Laboratory and Diagnostics Result Diagrams: 12/31/19 05:56 12/31/19 05:56 Labs: Laboratory WBC 11.7 X10^3/uL (3.6-10.0) H 12/31/19 05:56 RBC 2.93 X10^6/uL (4.7-6.0) L 12/31/19 05:56 Hgb 8.4 g/dL (13.5-18.0) L 12/31/19 05:56 Hct 25.1 % (42.0-54.0) L 12/31/19 05:56 MCV 85.6 fL (80.0-100.0) 12/31/19 05:56 MCH 28.5 pg (27.0-34.0) 12/31/19 05:56 MCHC 33.3 g/dL (33.0-35.0) 12/31/19 05:56 RDW 16.6 % (11.6-16.5) H 12/31/19 05:56 Plt Count 307 X10^3/uL (150.0-450.0) 12/31/19 05:56 MPV 7.7 fL (7.4-11.0) 12/31/19 05:56 Neut % (Auto) 71.0 % (42.0-75.0) 12/31/19 05:56 Lymph % (Auto) 17.6 % (21.0-51.0) L 12/31/19 05:56 [place] % (Auto) 8.5 % (0.0-13.0) 12/31/19 05:56 Eos % (Auto) 2.0 % (0.9-2.9) 12/31/19 05:56 Baso % (Auto) 0.9 % (0.2-1.0) 12/31/19 05:56 Neut # (Auto) 8.3 x10^3/uL (2.2-4.8) H 12/31/19 05:56 Lymph # (Auto) 2.1 X10^3/uL (1.3-2.9) 12/31/19 05:56 [place] # (Auto) 1.0 x10^3/uL (0.3-0.8) H 12/31/19 05:56 Eos # (Auto) 0.2 x10^3/uL (0.0-0.2) 12/31/19 05:56 Baso # (Auto) 0.1 X10^3/uL (0.0-0.1) 12/31/19 05:56 Absolute Nucleated RBC 0.0 /100WBC 12/31/19 05:56 Sample Site [facility] 12/26/19 14:26 ABG pH 7.320 (7.35-7.45) L 12/26/19 14:26 ABG pCO2 52.0 mmHg (35.0-45.0) H* 12/26/19 14:26 ABG pO2 74.0 mmHg (80.0-100.0) L 12/26/19 14:26 ABG HCO3 26.8 mmol/L (22-26) H 12/26/19 14:26 ABG O2 Saturation 93.0 % (90-100) 12/26/19 14:26 ABG Base Excess 0.0 mmol/L (-2.0-2.0) 12/26/19 14:26 [place] Test N/a 12/26/19 14:26 A-a Gradient 61.0 mmHg 12/26/19 14:26 FiO2 28.0 12/26/19 14:26 Blood Gas Comments Pt jeremiah well elj 12/26/19 14:26 Sodium 135 mmol/L (136-145) L 12/31/19 05:56 Corrected Sodium TNP 12/31/19 05:56 Potassium 5.2 mmol/L (3.5-5.1) H 12/31/19 05:56 Chloride 99 mmol/L (98-107) 12/31/19 05:56 Carbon Dioxide 33.5 mmol/L (21-32) H 12/31/19 05:56 BUN 5 mg/dL (7-18) L 12/31/19 05:56 Creatinine 0.62 mg/dL (0.70-1.30) L 12/31/19 05:56 Est GFR (MDRD) Af Amer > 60 (>60) 12/31/19 05:56 Est GFR (MDRD) Non-Af > 60 (>60) 12/31/19 05:56 Glucose 96 mg/dL (65-99) 12/31/19 05:56 POC Glucose (mg/dL) 95 mg/dL (65-99) 12/31/19 05:45 Calcium 9.5 mg/dL (8.5-10.1) 12/31/19 05:56 Corrected Calcium 10.2 mg/dL (8.5-10.1) H 12/31/19 05:56 Magnesium 1.6 mg/dL (1.7-2.9) L 12/31/19 05:56 Iron 36 ug/dL (50-175) L 12/28/19 04:44 Transferrin 175 mg/dL (202-364) L 12/28/19 04:44 Ferritin 627 ng/mL (26-388) H 12/28/19 04:44 Total Bilirubin 0.20 mg/dL (0.2-1.0) 12/31/19 05:56 AST 28 Units/L (15-37) 12/31/19 05:56 ALT 50 Units/L (12-78) 12/31/19 05:56 Alkaline Phosphatase 75 Units/L (46-116) 12/31/19 05:56 Creatine Kinase 157 Units/L (39-308) 12/27/19 05:20 CK-MB (CK-2) < 1.0 ng/mL (0-4.0) 12/27/19 05:20 CK/CKMB % Calc 0.6 % (<4) 12/27/19 05:20 Troponin I < 0.02 ng/mL (0-1.5) 12/27/19 05:20 Total Protein 7.2 g/dL (6.4-8.2) 12/31/19 05:56 Albumin 3.1 g/dL (3.4-5.0) L 12/31/19 05:56 Globulin 4.1 g/dL (2.5-4.5) 12/31/19 05:56 Albumin/Globulin Ratio 0.8 Ratio (1.1-2.1) L 12/31/19 05:56 Vitamin B12 364 pg/mL (193-986) 12/28/19 04:44 Folate 12.5 ng/mL (>8.6) 12/28/19 04:44 Specimen Type Catherized urine 12/27/19 05:10 Urine Color Yellow (YELLOW) 12/27/19 05:10 Urine Appearance Clear (CLEAR) 12/27/19 05:10 Urine pH 5.0 (5.0 - 8.0) 12/27/19 05:10 Ur Specific [place] 1.005 (1.000-1.030) 12/27/19 05:10 Urine Protein Negative (NEGATIVE) 12/27/19 05:10 Urine Glucose (UA) 1+ (NEGATIVE) 12/27/19 05:10 Urine Ketones Negative (NEGATIVE) 12/27/19 05:10 Urine Occult Blood 1+ (NEGATIVE) 12/27/19 05:10 Urine Nitrite Negative (NEGATIVE) 12/27/19 05:10 Urine Bilirubin Negative (NEGATIVE) 12/27/19 05:10 Urine Urobilinogen Normal (NORMAL) 12/27/19 05:10 Ur Leukocyte Esterase 1+ (NEGATIVE) 12/27/19 05:10 Urine RBC 0-2 /HPF (0-3) 12/27/19 05:10 Urine WBC 0-2 /HPF (0-5) 12/27/19 05:10 Ur Squamous Epith Cells Negative /HPF (NEGATIVE) 12/27/19 05:10 Urine Bacteria Negative /HPF (NEGATIVE) 12/27/19 05:10 Ur Culture Indicated? No/not indicated 12/27/19 05:10 - Plan (1) Acute respiratory distress Status: Acute Plan: CHEST TUBE MANAGEMENT PER DR WALLER. CONTINUE RESP THERAPY. SUPPLEMENTAL O2. CONTINUE G TUBE FEEDINGS, CONTINUE HOME MEDICATIONS. AM CXR (2) Bilateral pneumothorax Status: Acute (3) Diabetes mellitus Status: Chronic (4) Seizures Status: Chronic
[2019-12-31] MEDS: HumuLIN R SUBCUT PRN ×2 (17:52→21:00)
[2019-12-31] MEDS ORDERED: MILK OF MAGNESIA PO SCH (21:00)
[2019-12-31] MEDS: SNACK - Diabetic Appropriate PO SCH (21:00)
[2019-12-31] MEDS: ZOLOFT PO SCH (21:00)
[2019-12-31] MEDS: MAGNESIUM SULFATE 1 GRAM/100 mL PREMIX 1 GM/100 ML BAG IV PRN ×2 (21:00→22:53)
[2020-01-01 05:28] LABS: BASOPHILS # (AUTO) 0.1 X10^3/uL (0.0-0.1); BASOPHILS % (AUTO) 0.9 % (0.2-1.0); EOSINOPHILS # (AUTO) 0.5 x10^3/uL (0.0-0.2); EOSINOPHILS % (AUTO) 4.2 % (0.9-2.9); HEMATOCRIT 24.3 % (42.0-54.0); HEMOGLOBIN 8.2 g/dL (13.5-18.0); LYMPHOCYTES # (AUTO) 2.2 X10^3/uL (1.3-2.9); LYMPHOCYTES % (AUTO) 18.5 % (21.0-51.0); MEAN CORPUSCULAR HEMOGLOBIN 28.7 pg (27.0-34.0); MEAN CORPUSCULAR HGB CONC 33.7 g/dL (33.0-35.0); MEAN CORPUSCULAR VOLUME 85.2 fL (80.0-100.0); MEAN PLATELET VOLUME 7.3 fL (7.4-11.0); MONOCYTES # (AUTO) 1.2 x10^3/uL (0.3-0.8); NEUTROPHILS # (AUTO) 7.7 x10^3/uL (2.2-4.8); NEUTROPHILS % (AUTO) 66.4 % (42.0-75.0); PLATELET COUNT 322 X10^3/uL (150.0-450.0); RED BLOOD COUNT 2.85 X10^6/uL (4.7-6.0); RED CELL DISTRIBUTION WIDTH 16.5 % (11.6-16.5); WHITE BLOOD COUNT 11.6 X10^3/uL (3.6-10.0)
--- NOTE | 2020-01-01 05:33 | RAD ---
STUDY: FRONTAL VIEW CHESTCOMPARISON: December 31, 2019HISTORY: POST-CHEST TUBE REMOVALFINDINGS:Right IJ chemotherapy port is stable.Previously described bibasilar airspace disease is not significantly changed from the prior studyThe heart size is within normal limits.The mediastinum is unremarkable.Stable right lower thoracic pneumothorax is noted.No recurrent left pneumothoraxThe trachea is midline.IMPRESSION:1. Stable right lower thoracic pneumothorax and no recurrent left pneumothorax2. There is no significant change in the bibasilar airspace diseaseElectronically signed by: Richard Guaman (Jan 01, 2020 05:32:28)
[2020-01-01 05:48] LABS: ALANINE AMINOTRANSFERASE 42 Units/L (12-78); ALBUMIN 3.1 g/dL (3.4-5.0); ALKALINE PHOSPHATASE 85 Units/L (46-116); ASPARTATE AMINO TRANSFERASE 24 Units/L (15-37); BLOOD UREA NITROGEN 7 mg/dL (7-18); CALCIUM 9.5 mg/dL (8.5-10.1); CARBON DIOXIDE 33.4 mmol/L (21-32); CHLORIDE 96 mmol/L (98-107); COR CA(FOR HYPOALB) 10.2 mg/dL (8.5-10.1); CREATININE 0.63 mg/dL (0.70-1.30); SODIUM 134 mmol/L (136-145); eGFR NON BLACK RACES > 60 (>60)
[2020-01-01] MEDS: NS 1/2 1000 ML IV 1,000 ML IV SCH ×2 (06:14→08:55)
[2020-01-01] MEDS ORDERED: NS 1/2 1000 ML IV 1,000 ML IV ONE (08:50)
--- NOTE | 2020-01-01 08:54 | DR.PROGNOT ---
Hospital Progress Notes - Progress Note for Day of: Progress Note Date: 01/01/20 - Chief Complaint Chief Complaint: comfortable with good oxygenation . no SOB or chest pain . repeared chest xray showed expanded Lt lung and only small Rt pneumothorax. tolerating diet and tube feeding . - Past Medical Family Social History Past Med/Fam/Surg Hx: No changes since H&P Allergies: Allergies No Known Drug Allergies Allergy (Verified 10/20/18 18:36) - Review Of Systems ROS: No change since H&P - Vital Signs Vital Signs: Temperature 98.8 F Pulse Rate [Left Brachial] 105 Pulse Rate [Right Radial] 100 Pulse Rate 154 Respiratory Rate 14 Blood Pressure [Right Arm] 132/67 Blood Pressure [Left Arm] 143/71 Blood Pressure 239/116 O2 Sat by Pulse Oximetry 100 - Physical Exam Oriented: Normal Eyes: Normal Ear: Normal Nose: Normal Throat: Normal Respiratory: Right (clear lung both Lt and Rt ) Cardiovascular: Normal. negative: Edema : Normal GI:Auscultation: Normal GI:Palpation: Normal GI: Tenderness: Normal Skin: Decreased Turgur, Other (PEG TUBE PRESENT) Musculoskeletal: Leg, Motor Deficit, Instability, Crepitance Psychiatric: Normal Mood Description: Calm Speech Pattern: Appropriate, Unclear - Laboratory and Diagnostics Result Diagrams: 01/01/20 05:00 01/01/20 05:00 Labs: Laboratory WBC 11.6 X10^3/uL (3.6-10.0) H 01/01/20 05:00 RBC 2.85 X10^6/uL (4.7-6.0) L 01/01/20 05:00 Hgb 8.2 g/dL (13.5-18.0) L 01/01/20 05:00 Hct 24.3 % (42.0-54.0) L 01/01/20 05:00 MCV 85.2 fL (80.0-100.0) 01/01/20 05:00 MCH 28.7 pg (27.0-34.0) 01/01/20 05:00 MCHC 33.7 g/dL (33.0-35.0) 01/01/20 05:00 RDW 16.5 % (11.6-16.5) 01/01/20 05:00 Plt Count 322 X10^3/uL (150.0-450.0) 01/01/20 05:00 MPV 7.3 fL (7.4-11.0) L 01/01/20 05:00 Neut % (Auto) 66.4 % (42.0-75.0) 01/01/20 05:00 Lymph % (Auto) 18.5 % (21.0-51.0) L 01/01/20 05:00 [place] % (Auto) 10.0 % (0.0-13.0) 01/01/20 05:00 Eos % (Auto) 4.2 % (0.9-2.9) H 01/01/20 05:00 Baso % (Auto) 0.9 % (0.2-1.0) 01/01/20 05:00 Neut # (Auto) 7.7 x10^3/uL (2.2-4.8) H 01/01/20 05:00 Lymph # (Auto) 2.2 X10^3/uL (1.3-2.9) 01/01/20 05:00 [place] # (Auto) 1.2 x10^3/uL (0.3-0.8) H 01/01/20 05:00 Eos # (Auto) 0.5 x10^3/uL (0.0-0.2) H 01/01/20 05:00 Baso # (Auto) 0.1 X10^3/uL (0.0-0.1) 01/01/20 05:00 Absolute Nucleated RBC 0.0 /100WBC 01/01/20 05:00 Sample Site Rbra 12/26/19 14:26 ABG pH 7.320 (7.35-7.45) L 12/26/19 14:26 ABG pCO2 52.0 mmHg (35.0-45.0) H* 12/26/19 14:26 ABG pO2 74.0 mmHg (80.0-100.0) L 12/26/19 14:26 ABG HCO3 26.8 mmol/L (22-26) H 12/26/19 14:26 ABG O2 Saturation 93.0 % (90-100) 12/26/19 14:26 ABG Base Excess 0.0 mmol/L (-2.0-2.0) 12/26/19 14:26 Hakeem Test N/a 12/26/19 14:26 A-a Gradient 61.0 mmHg 12/26/19 14:26 FiO2 28.0 12/26/19 14:26 Blood Gas Comments Pt jeremiah well elj 12/26/19 14:26 Sodium 134 mmol/L (136-145) L 01/01/20 05:00 Corrected Sodium TNP 01/01/20 05:00 Potassium 4.9 mmol/L (3.5-5.1) 01/01/20 05:00 Chloride 96 mmol/L (98-107) L 01/01/20 05:00 Carbon Dioxide 33.4 mmol/L (21-32) H 01/01/20 05:00 BUN 7 mg/dL (7-18) 01/01/20 05:00 Creatinine 0.63 mg/dL (0.70-1.30) L 01/01/20 05:00 Est GFR (MDRD) Af Amer > 60 (>60) 01/01/20 05:00 Est GFR (MDRD) Non-Af > 60 (>60) 01/01/20 05:00 Glucose 100 mg/dL (65-99) H 01/01/20 05:00 POC Glucose (mg/dL) 252 mg/dL (65-99) H 12/31/19 17:45 Calcium 9.5 mg/dL (8.5-10.1) 01/01/20 05:00 Corrected Calcium 10.2 mg/dL (8.5-10.1) H 01/01/20 05:00 Magnesium 2.0 mg/dL (1.7-2.9) 01/01/20 05:00 Iron 36 ug/dL (50-175) L 12/28/19 04:44 Transferrin 175 mg/dL (202-364) L 12/28/19 04:44 Ferritin 627 ng/mL (26-388) H 12/28/19 04:44 Total Bilirubin 0.20 mg/dL (0.2-1.0) 01/01/20 05:00 AST 24 Units/L (15-37) 01/01/20 05:00 ALT 42 Units/L (12-78) 01/01/20 05:00 Alkaline Phosphatase 85 Units/L (46-116) 01/01/20 05:00 Creatine Kinase 157 Units/L (39-308) 12/27/19 05:20 CK-MB (CK-2) < 1.0 ng/mL (0-4.0) 12/27/19 05:20 CK/CKMB % Calc 0.6 % (<4) 12/27/19 05:20 Troponin I < 0.02 ng/mL (0-1.5) 12/27/19 05:20 Total Protein 7.0 g/dL (6.4-8.2) 01/01/20 05:00 Albumin 3.1 g/dL (3.4-5.0) L 01/01/20 05:00 Globulin 3.9 g/dL (2.5-4.5) 01/01/20 05:00 Albumin/Globulin Ratio 0.8 Ratio (1.1-2.1) L 01/01/20 05:00 Vitamin B12 364 pg/mL (193-986) 12/28/19 04:44 Folate 12.5 ng/mL (>8.6) 12/28/19 04:44 Specimen Type Catherized urine 12/27/19 05:10 Urine Color Yellow (YELLOW) 12/27/19 05:10 Urine Appearance Clear (CLEAR) 12/27/19 05:10 Urine pH 5.0 (5.0 - 8.0) 12/27/19 05:10 Ur Specific [place] 1.005 (1.000-1.030) 12/27/19 05:10 Urine Protein Negative (NEGATIVE) 12/27/19 05:10 Urine Glucose (UA) 1+ (NEGATIVE) 12/27/19 05:10 Urine Ketones Negative (NEGATIVE) 12/27/19 05:10 Urine Occult Blood 1+ (NEGATIVE) 12/27/19 05:10 Urine Nitrite Negative (NEGATIVE) 12/27/19 05:10 Urine Bilirubin Negative (NEGATIVE) 12/27/19 05:10 Urine Urobilinogen Normal (NORMAL) 12/27/19 05:10 Ur Leukocyte Esterase 1+ (NEGATIVE) 12/27/19 05:10 Urine RBC 0-2 /HPF (0-3) 12/27/19 05:10 Urine WBC 0-2 /HPF (0-5) 12/27/19 05:10 Ur Squamous Epith Cells Negative /HPF (NEGATIVE) 12/27/19 05:10 Urine Bacteria Negative /HPF (NEGATIVE) 12/27/19 05:10 Ur Culture Indicated? No/not indicated 12/27/19 05:10 - Assessment and Plan 1: expanded Lt .lung s/p removal chest tube . stable Rt pneumothorax . to be observed . rectal ca with mets . ( Pt is scheduled for chemo Tx ). moderate anemia. CVA , and dysphagia . S/P placement of PEG tube .. Pt is stable and could be discharged .. will follow in 10 days - Problem Patient Problems: Patient Problems Bilateral pneumothorax (Acute) J93.9 Chest pain (Acute) R07.9 Acute respiratory distress (Acute) R06.03
[2020-01-01] MEDS: LEVAQUIN PREMIX IV 500 MG 500 MG/100 ML BAG IV SCH (08:57)
--- NOTE | 2020-01-01 09:47 | RAD ---
HISTORYConstipationSTUDYKUBCOMPARISONAbdominal film December 24, 2019FINDINGSPeg tube is in place. Recta l tube versus urinary catheter is in place.. There is no small-bowel or colonic distention. There is moderate residual stool in the descending and rectosigmoid colon with a impaction in the rectum. Fin dings are consistent with constipation.IMPRESSIONIncreased stool in the descending sigmoid and rectum . There is no evidence of colonic distention or obstruction.Peg tube is in place.Pattern is similar t o what was seen on the prior study of December 24, 2019.Electronically signed by: MONCHO RUBIO (Dec 102019 09:46:31)
[2020-01-01] MEDS: COLACE CAP 100 MG PO SCH ×2 (10:17→10:40)
[2020-01-01] MEDS: LEVETIRACETAM 500 MG PO SCH ×2 (10:17→10:40)
[2020-01-01] MEDS: PROTONIX INJ 40 MG VIAL IVP SCH (10:17)
[2020-01-01 16:21] VITALS: BP 115/75
== END 2020-01-01 16:05 | DRG 200 ==
LOC: ER 14:10 → MED/SURG 15:16
PROVIDERS: ADMIT Internal Medicine; ATTEND Internal Medicine
DX: J95.811 Postprocedural pneumothorax; K59.09 Other constipation; F32.89 Other specified depressive episodes; Y83.8 Other surgical procedures as the cause of abnormal reaction of the patient, or of later complication, without mention of misadventure at the time of the procedure; E11.65 Type 2 diabetes mellitus with hyperglycemia; G40.89 Other seizures; Z93.1 Gastrostomy status; R07.89 Other chest pain; R13.11 Dysphagia, oral phase; C21.1 Malignant neoplasm of anal canal; E87.8 Other disorders of electrolyte and fluid balance, not elsewhere classified; K21.9 Gastro-esophageal reflux disease without esophagitis; I25.10 Atherosclerotic heart disease of native coronary artery without angina pectoris; C79.9 Secondary malignant neoplasm of unspecified site; D50.8 Other iron deficiency anemias; E46 Unspecified protein-calorie malnutrition; I87.2 Venous insufficiency (chronic) (peripheral)

== ENCOUNTER 2020-04-10 01:19 | Inpatient (IN) ==
--- NOTE | 2020-04-10 01:48 | DR.GENAD ---
HPI Time Seen Time Seen by Provider: 04/10/20 01:28 Complaint/Symptoms Chief Complaint Doctors Comments: [facility] with fever and high blood glucose for evaluation. Patient has colon cancer COVID-19 Coronavirus symptoms experienced: Fever Source History Provided: Correction Mode of Arrival Mode of Arrival: Stretcher Timing Came on: Gradually Duration Duration: Constant How lon Duration: Hours Location Location: generalized Severity Severity: Moderate Modifying Factors Worsens:: fever PMH PMH Past Medical History: Coronary Artery Disease, CVA, Diabetes, GERD and Seizures Past Surgical History: Yes Surgical History: Unknown Social History Do you use any recreational Drugs:: No ROS Review of Systems Unable to Obtain Due To: Altered mental status PE Vital Signs Vitals: Temperature 100.7 F Pulse Rate 142 Respiratory Rate 20 Blood Pressure [Right Arm] 132/67 Blood Pressure [Left Arm] 115/75 Blood Pressure 127/78 O2 Sat by Pulse Oximetry 100 General Limitations: Altered Mental Status General Appearance: Lethargic Head Head Exam: Normal Inspection, Atraumatic and Normocephalic Eyes Eye exam: Normal Appearance ENT ENT Exam: Mucous Membranes Dry External Ear Exam: Normal External Inspection Nose Exam: Normal Nose Exam Mouth Exam: Other (dry membranes) Neck Neck Exam: Normal Inspection and Trachea Midline Chest Chest Inspection: Normal Inspection and Other (right port present) Respiratory Respiratory Exam: negative Normal Lung Sounds Bilat Respiratory Exam: Bilateral: Rhonchi Cardiovascular Cardiovascular Exam: Tachycardia Abdominal Exam Abdominal Exam: Other (Gtube in place); negative Distention, Tenderness and Guarding Extremities Extremities Exam: Normal Inspection and Other (thin cachetic) Neurologic Neurological Exam: Other (unable to assess not talking) Skin Skin Exam: Normal Color ROR Labs Reviewed Result Diagrams: 04/10/20 01:53 04/10/20 01:53 Laboratory: WBC 18.5 X10^3/uL (3.6-10.0) H 04/10/20 01:53 RBC 3.70 X10^6/uL (4.7-6.0) L 04/10/20 01:53 Hgb 10.7 g/dL (13.5-18.0) L 04/10/20 01:53 Hct 33.4 % (42.0-54.0) L 04/10/20 01:53 MCV 90.1 fL (80.0-100.0) 04/10/20 01:53 MCH 28.8 pg (27.0-34.0) 04/10/20 01:53 MCHC 31.9 g/dL (33.0-35.0) L 04/10/20 01:53 RDW 17.2 % (11.6-16.5) H 04/10/20 01:53 Plt Count 250 X10^3/uL (150.0-450.0) 04/10/20 01:53 MPV 9.5 fL (7.4-11.0) 04/10/20 01:53 Neut % (Auto) 84.0 % (42.0-75.0) H 04/10/20 01:53 Lymph % (Auto) 7.6 % (21.0-51.0) L 04/10/20 01:53 [place] % (Auto) 7.8 % (0.0-13.0) 04/10/20 01:53 Eos % (Auto) 0.1 % (0.9-2.9) L 04/10/20 01:53 Baso % (Auto) 0.5 % (0.2-1.0) 04/10/20 01:53 Neut # (Auto) 15.5 x10^3/uL (2.2-4.8) H 04/10/20 01:53 Lymph # (Auto) 1.4 X10^3/uL (1.3-2.9) 04/10/20 01:53 [place] # (Auto) 1.4 x10^3/uL (0.3-0.8) H 04/10/20 01:53 Eos # (Auto) 0.0 x10^3/uL (0.0-0.2) 04/10/20 01:53 Baso # (Auto) 0.1 X10^3/uL (0.0-0.1) 04/10/20 01:53 Absolute Nucleated RBC 0.0 /100WBC 04/10/20 01:53 Sodium 146 mmol/L (136-145) H 04/10/20 01:53 Corrected Sodium 153 mmol/L (136-145) H 04/10/20 01:53 Potassium 4.4 mmol/L (3.5-5.1) 04/10/20 01:53 Chloride 104 mmol/L (98-107) 04/10/20 01:53 Carbon Dioxide 37.1 mmol/L (21-32) H 04/10/20 01:53 BUN 41 mg/dL (7-18) H 04/10/20 01:53 Creatinine 0.92 mg/dL (0.70-1.30) 04/10/20 01:53 Est GFR (MDRD) Af Amer > 60 (>60) 04/10/20 01:53 Est GFR (MDRD) Non-Af > 60 (>60) 04/10/20 01:53 Glucose 409 mg/dL (65-99) H 04/10/20 01:53 Lactic Acid 2.6 mmol/L (0.4-2.0) H 04/10/20 01:53 Calcium 10.0 mg/dL (8.5-10.1) 04/10/20 01:53 Corrected Calcium 10.6 mg/dL (8.5-10.1) H 04/10/20 01:53 Total Bilirubin 0.30 mg/dL (0.2-1.0) 04/10/20 01:53 AST 25 Units/L (15-37) 04/10/20 01:53 ALT 35 Units/L (12-78) 04/10/20 01:53 Alkaline Phosphatase 144 Units/L (46-116) H 04/10/20 01:53 Creatine Kinase 70 Units/L (39-308) 04/10/20 01:53 CK-MB (CK-2) < 1.0 ng/mL (0-4.0) 04/10/20 01:53 CK/CKMB % Calc 1.4 % (<4) 04/10/20 01:53 Troponin I < 0.02 ng/mL (0-1.5) 04/10/20 01:53 Total Protein 8.1 g/dL (6.4-8.2) 04/10/20 01:53 Albumin 3.3 g/dL (3.4-5.0) L 04/10/20 01:53 Globulin 4.8 g/dL (2.5-4.5) H 04/10/20 01:53 Albumin/Globulin Ratio 0.7 Ratio (1.1-2.1) L 04/10/20 01:53 Specimen Type Catherized urine 04/10/20 02:39 Urine Color Yellow (YELLOW) 04/10/20 02:39 Urine Appearance Clear (CLEAR) 04/10/20 02:39 Urine pH 7.0 (5.0 - 8.0) 04/10/20 02:39 Ur Specific [place] 1.005 (1.000-1.030) 04/10/20 02:39 Urine Protein 2+ (NEGATIVE) 04/10/20 02:39 Urine Glucose (UA) 4+ (NEGATIVE) 04/10/20 02:39 Urine Ketones Negative (NEGATIVE) 04/10/20 02:39 Urine Occult Blood Negative (NEGATIVE) 04/10/20 02:39 Urine Nitrite Negative (NEGATIVE) 04/10/20 02:39 Urine Bilirubin Negative (NEGATIVE) 04/10/20 02:39 Urine Urobilinogen Normal (NORMAL) 04/10/20 02:39 Ur Leukocyte Esterase Negative (NEGATIVE) 04/10/20 02:39 Urine RBC 0-2 /HPF (0-3) 04/10/20 02:39 Urine WBC None seen /HPF (0-5) 04/10/20 02:39 Ur Squamous Epith Cells Rare /HPF (NEGATIVE) 04/10/20 02:39 Urine Bacteria Negative /HPF (NEGATIVE) 04/10/20 02:39 Ur Culture Indicated? No/not indicated 04/10/20 02:39 SARS-CoV-2 (PCR) Negative (NEGATIVE) 04/10/20 02:25 XRAY XRAY Interpreted by: Radiologist X-ray Results: chest: right basilar infiltrate Opioid Opioid Risk Tool Age (Ruel box if 16-45): No History of Preadolescent Sexual Abuse: No Total: 0 Total Score Risk Category: Low Risk Copyright: Sarabjit RICE predicting aberrant behaviors Diagnosis Discharge Problem: Acute hyperglycemia Fever Qualifiers: Fever type: unspecified Qualified Code(s): R50.9 - Fever, unspecified Pneumonia Qualifiers: Pneumonia type: aspiration pneumonia Aspiration pneumonia type: unspecified Laterality: bilateral Lung location: lower lobe of lung Qualified Code(s): J69.0 - Pneumonitis due to inhalation of food and vomit Instructions Forms: Excuse From Work Precautions for COVID19 Patient Portal Social Distancing
[2020-04-10] MEDS ORDERED: NS 1000 ML 1,000 ML IV ONE (01:49)
[2020-04-10] MEDS ORDERED: HumuLIN R IV ONE (01:51)
[2020-04-10] MEDS ORDERED: NS 1000 ML 1,000 ML ONE (01:57)
[2020-04-10] MEDS ORDERED: HumuLIN R ONE (01:58)
[2020-04-10 02:16] LABS: BASOPHILS # (AUTO) 0.1 X10^3/uL (0.0-0.1); BASOPHILS % (AUTO) 0.5 % (0.2-1.0); EOSINOPHILS % (AUTO) 0.1 % (0.9-2.9); HEMATOCRIT 33.4 % (42.0-54.0); HEMOGLOBIN 10.7 g/dL (13.5-18.0); LYMPHOCYTES # (AUTO) 1.4 X10^3/uL (1.3-2.9); LYMPHOCYTES % (AUTO) 7.6 % (21.0-51.0); MEAN CORPUSCULAR HEMOGLOBIN 28.8 pg (27.0-34.0); MEAN CORPUSCULAR HGB CONC 31.9 g/dL (33.0-35.0); MEAN CORPUSCULAR VOLUME 90.1 fL (80.0-100.0); MEAN PLATELET VOLUME 9.5 fL (7.4-11.0); MONOCYTES # (AUTO) 1.4 x10^3/uL (0.3-0.8); MONOCYTES % (AUTO) 7.8 % (0.0-13.0); NEUTROPHILS # (AUTO) 15.5 x10^3/uL (2.2-4.8); PLATELET COUNT 250 X10^3/uL (150.0-450.0); RED CELL DISTRIBUTION WIDTH 17.2 % (11.6-16.5); WHITE BLOOD COUNT 18.5 X10^3/uL (3.6-10.0)
[2020-04-10] MEDS ORDERED: ROCEPHIN VIAL 1 GRAM IM ONE (02:18)
[2020-04-10] MEDS ORDERED: NS 100 ML IV + SPIKE MINIBAG* 100 ML IV ONE ×2 (02:21→09:20)
[2020-04-10] MEDS ORDERED: ROCEPHIN VIAL 1 GRAM 1 G in NS 100 ML IV + SPIKE MINIBAG* 100 ML IV ONE (02:21)
[2020-04-10] MEDS ORDERED: ROCEPHIN VIAL 1 GRAM ONE (02:21)
[2020-04-10 02:26] LABS: LACTIC ACID 2.6 mmol/L (0.4-2.0)
[2020-04-10 02:27] LABS: BLOOD UREA NITROGEN 41 mg/dL (7-18); CARBON DIOXIDE 37.1 mmol/L (21-32); CHLORIDE 104 mmol/L (98-107); COR NA(FOR HYPERGLY) 153 mmol/L (136-145); CREATININE 0.92 mg/dL (0.70-1.30); SODIUM 146 mmol/L (136-145); TROPONIN I < 0.02 ng/mL (0-1.5); eGFR NON BLACK RACES > 60 (>60)
[2020-04-10 02:32] LABS: ALANINE AMINOTRANSFERASE 35 Units/L (12-78); ALBUMIN 3.3 g/dL (3.4-5.0); ALKALINE PHOSPHATASE 144 Units/L (46-116); ASPARTATE AMINO TRANSFERASE 25 Units/L (15-37); CKMB % 1.4 % (<4); COR CA(FOR HYPOALB) 10.6 mg/dL (8.5-10.1); CREATINE KINASE 70 Units/L (39-308); CREATINE KINASE MB < 1.0 ng/mL (0-4.0); TOTAL PROTEIN 8.1 g/dL (6.4-8.2)
[2020-04-10 02:47] LABS: BILIRUBIN,URINE NEGATIVE (NEGATIVE); BLOOD/HEMOGLOBIN,URINE NEGATIVE (NEGATIVE); GLUCOSE, URINE 4+ (NEGATIVE); KETONES,URINE NEGATIVE (NEGATIVE); LEUKOCYTE ESTERASE ,URINE NEGATIVE (NEGATIVE); NITRITES,URINE NEGATIVE (NEGATIVE); PROTEIN,URINE 2+ (NEGATIVE); UROBILINOGEN,URINE NORMAL (NORMAL)
[2020-04-10 02:50] LABS: APPEARANCE,URINE CLEAR (CLEAR); BACTERIA,URINE NEGATIVE /HPF (NEGATIVE); COLOR,URINE YELLOW (YELLOW); RBC,URINE 0-2 /HPF (0-3); SQUAMOUS EPITHELIAL CELL,UR RARE /HPF (NEGATIVE)
--- NOTE | 2020-04-10 04:31 | RAD ---
HISTORYfeverSTUDYCHEST, 1 [id number]/20/2020FINDINGSThe trachea is midline. The cardiac silhouette is unremarkable. There is persistent airspace disease within the right lung base. There has been improved aeration in the left lung base from prior study. The upper lung onofre remain clear. Right Port-A-Cath unchanged.. The bony thorax is unremarkable.IMPRESSIONRight basilar infiltrate, unchanged.Improved aeration within the left lung base from previous 03/29/2020Electronically signed by: Robin Kohli (Apr 10, 2020 04:30:39)
[2020-04-10] MEDS ORDERED: D50W ABBOJECT SYR IV ONE (06:36)
[2020-04-10] MEDS ORDERED: D50W ABBOJECT SYR ONE (06:46)
--- NOTE | 2020-04-10 07:51 | DR.GENAD ---
HPI Time Seen Time Seen by Provider: 04/10/20 01:28 PCP Primary Care Physician: SANA Complaint/Symptoms Chief Complaint:: ELEVATED TEMP AND PULSE RATE NOT CORRECTED WITH MEDICATIONS. DR ARSHAD WAS CALLED BY RESIDENTIAL STAFF AND HE SUGGESTED THEY BRING HIM TO THE ED FOR EVALUATION Self Treatment fo Chief Complaint: BS WAS 472-TREATED WITH 10 UNITS OF REGULAR INSULIN. ORDERS WERE TO RECHECH Q4 HOURS UNTIL 0600. TEMP WAS 99.8-TREATED WITH 650MG OF TYLENOL. TEMP RECHECK PER RESIDENTIAL WAS 100.4. COVID-19 Coronavirus risk:travel/contact w/high risk person: No Has patient experienced Coronavirus symptoms: No Coronavirus symptoms experienced: Fever Source History Provided: Correction Mode of Arrival Mode of Arrival: Stretcher Timing Onset of Chief Complaint: 04/10/20 Came on: Gradually Duration Duration: Constant How lon Duration: Hours Location Location: generalized Severity Severity: Moderate Modifying Factors Worsens:: fever PMH PMH Past Medical History: Yes Past Medical History: Coronary Artery Disease, CVA, Diabetes, GERD and Seizures Past Surgical History: Yes Surgical History: Unknown Family History History of Family Medical Conditions: No (UNKNOWN) Social History Does patient currently use any type of tobacco product: No Have you used tobacco products in the last 12 months: No Type of Tobacco Use: None Do you use any recreational Drugs:: No Lives Where: Correction Travel Risk Coronavirus risk:travel/contact w/high risk person: No Has patient experienced Coronavirus symptoms: No Coronavirus symptoms experienced: Fever Infectious screening In the last 2 months have you had wt loss of >10#?: NO Have you had fever, night sweats or hemotysis?: No Have you traveled outside the country in the last 6 months?: No Isolation: Standard PE Vital Signs Vitals: Temperature 100.7 F Pulse Rate 121 Respiratory Rate 22 Blood Pressure [Right Arm] 132/67 Blood Pressure [Left Arm] 115/75 Blood Pressure 102/63 O2 Sat by Pulse Oximetry 100 ROR Labs Reviewed Result Diagrams: 04/12/20 04:45 04/12/20 04:45 Laboratory: WBC 18.5 X10^3/uL (3.6-10.0) H 04/10/20 01:53 RBC 3.70 X10^6/uL (4.7-6.0) L 04/10/20 01:53 Hgb 10.7 g/dL (13.5-18.0) L 04/10/20 01:53 Hct 33.4 % (42.0-54.0) L 04/10/20 01:53 MCV 90.1 fL (80.0-100.0) 04/10/20 01:53 MCH 28.8 pg (27.0-34.0) 04/10/20 01:53 MCHC 31.9 g/dL (33.0-35.0) L 04/10/20 01:53 RDW 17.2 % (11.6-16.5) H 04/10/20 01:53 Plt Count 250 X10^3/uL (150.0-450.0) 04/10/20 01:53 MPV 9.5 fL (7.4-11.0) 04/10/20 01:53 Neut % (Auto) 84.0 % (42.0-75.0) H 04/10/20 01:53 Lymph % (Auto) 7.6 % (21.0-51.0) L 04/10/20 01:53 [place] % (Auto) 7.8 % (0.0-13.0) 04/10/20 01:53 Eos % (Auto) 0.1 % (0.9-2.9) L 04/10/20 01:53 Baso % (Auto) 0.5 % (0.2-1.0) 04/10/20 01:53 Neut # (Auto) 15.5 x10^3/uL (2.2-4.8) H 04/10/20 01:53 Lymph # (Auto) 1.4 X10^3/uL (1.3-2.9) 04/10/20 01:53 [place] # (Auto) 1.4 x10^3/uL (0.3-0.8) H 04/10/20 01:53 Eos # (Auto) 0.0 x10^3/uL (0.0-0.2) 04/10/20 01:53 Baso # (Auto) 0.1 X10^3/uL (0.0-0.1) 04/10/20 01:53 Absolute Nucleated RBC 0.0 /100WBC 04/10/20 01:53 Sodium 146 mmol/L (136-145) H 04/10/20 01:53 Corrected Sodium 153 mmol/L (136-145) H 04/10/20 01:53 Potassium 4.4 mmol/L (3.5-5.1) 04/10/20 01:53 Chloride 104 mmol/L (98-107) 04/10/20 01:53 Carbon Dioxide 37.1 mmol/L (21-32) H 04/10/20 01:53 BUN 41 mg/dL (7-18) H 04/10/20 01:53 Creatinine 0.92 mg/dL (0.70-1.30) 04/10/20 01:53 Est GFR (MDRD) Af Amer > 60 (>60) 04/10/20 01:53 Est GFR (MDRD) Non-Af > 60 (>60) 04/10/20 01:53 Glucose 409 mg/dL (65-99) H 04/10/20 01:53 POC Glucose (mg/dL) 185 mg/dL (65-99) H 04/10/20 07:09 Lactic Acid 2.6 mmol/L (0.4-2.0) H 04/10/20 01:53 Calcium 10.0 mg/dL (8.5-10.1) 04/10/20 01:53 Corrected Calcium 10.6 mg/dL (8.5-10.1) H 04/10/20 01:53 Ferritin 176 ng/mL (26-388) 04/10/20 01:53 Total Bilirubin 0.30 mg/dL (0.2-1.0) 04/10/20 01:53 AST 25 Units/L (15-37) 04/10/20 01:53 ALT 35 Units/L (12-78) 04/10/20 01:53 Alkaline Phosphatase 144 Units/L (46-116) H 04/10/20 01:53 Creatine Kinase 70 Units/L (39-308) 04/10/20 01:53 CK-MB (CK-2) < 1.0 ng/mL (0-4.0) 04/10/20 01:53 CK/CKMB % Calc 1.4 % (<4) 04/10/20 01:53 Troponin I < 0.02 ng/mL (0-1.5) 04/10/20 01:53 C-Reactive Protein 82.00 mg/L (0-3.0) H 04/10/20 01:53 Total Protein 8.1 g/dL (6.4-8.2) 04/10/20 01:53 Albumin 3.3 g/dL (3.4-5.0) L 04/10/20 01:53 Globulin 4.8 g/dL (2.5-4.5) H 04/10/20 01:53 Albumin/Globulin Ratio 0.7 Ratio (1.1-2.1) L 04/10/20 01:53 Specimen Type Catherized urine 04/10/20 02:39 Urine Color Yellow (YELLOW) 04/10/20 02:39 Urine Appearance Clear (CLEAR) 04/10/20 02:39 Urine pH 7.0 (5.0 - 8.0) 04/10/20 02:39 Ur Specific [place] 1.005 (1.000-1.030) 04/10/20 02:39 Urine Protein 2+ (NEGATIVE) 04/10/20 02:39 Urine Glucose (UA) 4+ (NEGATIVE) 04/10/20 02:39 Urine Ketones Negative (NEGATIVE) 04/10/20 02:39 Urine Occult Blood Negative (NEGATIVE) 04/10/20 02:39 Urine Nitrite Negative (NEGATIVE) 04/10/20 02:39 Urine Bilirubin Negative (NEGATIVE) 04/10/20 02:39 Urine Urobilinogen Normal (NORMAL) 04/10/20 02:39 Ur Leukocyte Esterase Negative (NEGATIVE) 04/10/20 02:39 Urine RBC 0-2 /HPF (0-3) 04/10/20 02:39 Urine WBC None seen /HPF (0-5) 04/10/20 02:39 Ur Squamous Epith Cells Rare /HPF (NEGATIVE) 04/10/20 02:39 Urine Bacteria Negative /HPF (NEGATIVE) 04/10/20 02:39 Ur Culture Indicated? No/not indicated 04/10/20 02:39 SARS-CoV-2 (PCR) Negative (NEGATIVE) 04/10/20 02:25 XRAY XRAY Interpreted by: Radiologist X-ray Results: cchest: RLL infiltrate Opioid Opioid Risk Tool Age (Ruel box if 16-45): No History of Preadolescent Sexual Abuse: No Total: 0 Total Score Risk Category: Low Risk Copyright: Sarabjit RICE predicting aberrant behaviors Diagnosis Discharge Problem: Acute hyperglycemia Fever Qualifiers: Fever type: unspecified Qualified Code(s): R50.9 - Fever, unspecified Pneumonia Qualifiers: Pneumonia type: aspiration pneumonia Aspiration pneumonia type: unspecified Laterality: bilateral Lung location: lower lobe of lung Qualified Code(s): J69.0 - Pneumonitis due to inhalation of food and vomit Instructions Forms: Excuse From Work Precautions for COVID19 Patient Portal Social Distancing
[2020-04-10] MEDS ORDERED: FORTAZ or TAZICEF VIAL INJ 1 G in NS 100 ML IV + SPIKE MINIBAG* 100 ML IV ONE (08:04)
[2020-04-10] MEDS ORDERED: LEVAQUIN TAB 500 MG PO SCH (09:00)
[2020-04-10] MEDS ORDERED: NS 1000 ML 1,000 ML IV SCH (09:00)
[2020-04-10] MEDS ORDERED: VITAMIN A PO SCH (09:00)
[2020-04-10] MEDS ORDERED: FORTAZ or TAZICEF VIAL INJ ONE (09:20)
[2020-04-10] MEDS ORDERED: D5 1/2 NS 1000 ML 1,000 ML IV ONE (09:24)
[2020-04-10] MEDS: D5 1/2 NS 1000 ML 1,000 ML IV SCH ×2 (09:26→22:15)
[2020-04-10] MEDS: PULMICORT NEB TX 0.5 MG NEB SCH ×2 (09:35→21:48)
[2020-04-10] MEDS: DUONEB 0.5 MG/3 MG (3 mL) NEB SCH ×4 (09:35→21:48)
[2020-04-10 10:29] LABS: ABG ALLEN TEST POS; ABG HCO3 39.8 mmol/L (22-26)
[2020-04-10] MEDS ORDERED: GLUCOPHAGE ONE ×2 (12:32→20:11)
[2020-04-10] MEDS: ASCORBIC ACID INJ MULTI-DOSE VIAL 1,500 MG in NS 100 ML IV 100 ML IV SCH ×3 (12:56→20:21)
[2020-04-10] MEDS: THIAMINE HCL INJ IM SCH ×2 (12:57→22:14)
[2020-04-10] MEDS: LEVETIRACETAM 500 MG PO SCH ×2 (13:07→20:36)
[2020-04-10] MEDS: PATIENT'S HOME MEDICATION (Ferrous Fumarate [Hemocyte] 324 MG) PO SCH (13:07)
[2020-04-10] MEDS: ASPIRIN EC 81 MG PO SCH (13:09)
[2020-04-10] MEDS: COLACE CAP 100 MG PO SCH (13:09)
[2020-04-10] MEDS: GLUCOPHAGE PO SCH ×2 (13:10→20:21)
[2020-04-10] MEDS: PLAVIX PO SCH (13:11)
[2020-04-10] MEDS: PROTONIX TAB 40 MG PO SCH ×2 (13:11→20:22)
[2020-04-10] MEDS: MOBIC TAB 15 MG PO SCH (13:12)
[2020-04-10] MEDS: LIPITOR TAB 40 MG PO SCH (20:21)
[2020-04-10] MEDS: ZOLOFT PO SCH (20:22)
[2020-04-10] MEDS: NEURONTIN CAP 100 MG PO SCH (20:23)
[2020-04-10] MEDS ORDERED: KEPPRA TAB 500 MG ONE (20:33)
[2020-04-10] MEDS ORDERED: VITAMIN B-1 PO ONE (20:34)
[2020-04-10] MEDS: NORCO 5/325 MG TAB PO PRN (22:11)
[2020-04-11] MEDS ORDERED: TYLENOL 325 MG TAB PO ONE (00:25)
[2020-04-11] MEDS ORDERED: HumuLIN R ONE (00:25)
[2020-04-11] MEDS: TYLENOL 325 MG TAB PO PRN ×2 (00:28→10:40)
[2020-04-11] MEDS: HumuLIN R SUBCUT PRN ×3 (00:31→21:49)
[2020-04-11] MEDS: ASCORBIC ACID INJ MULTI-DOSE VIAL 1,500 MG in NS 100 ML IV 100 ML IV SCH (04:30)
[2020-04-11 05:39] LABS: BASOPHILS # (AUTO) 0.1 X10^3/uL (0.0-0.1); BASOPHILS % (AUTO) 0.4 % (0.2-1.0); EOSINOPHILS # (AUTO) 0.2 x10^3/uL (0.0-0.2); EOSINOPHILS % (AUTO) 1.6 % (0.9-2.9); HEMATOCRIT 28.9 % (42.0-54.0); HEMOGLOBIN 9.1 g/dL (13.5-18.0); LYMPHOCYTES # (AUTO) 1.1 X10^3/uL (1.3-2.9); LYMPHOCYTES % (AUTO) 7.4 % (21.0-51.0); MEAN CORPUSCULAR HEMOGLOBIN 28.6 pg (27.0-34.0); MEAN CORPUSCULAR HGB CONC 31.4 g/dL (33.0-35.0); MEAN CORPUSCULAR VOLUME 90.8 fL (80.0-100.0); MEAN PLATELET VOLUME 10.3 fL (7.4-11.0); MONOCYTES # (AUTO) 1.4 x10^3/uL (0.3-0.8); MONOCYTES % (AUTO) 9.3 % (0.0-13.0); NEUTROPHILS # (AUTO) 12.5 x10^3/uL (2.2-4.8); NEUTROPHILS % (AUTO) 81.3 % (42.0-75.0); PLATELET COUNT 217 X10^3/uL (150.0-450.0); RED BLOOD COUNT 3.18 X10^6/uL (4.7-6.0); WHITE BLOOD COUNT 15.3 X10^3/uL (3.6-10.0)
[2020-04-11 05:58] LABS: ALANINE AMINOTRANSFERASE 34 Units/L (12-78); ALBUMIN 2.7 g/dL (3.4-5.0); ALKALINE PHOSPHATASE 83 Units/L (46-116); ASPARTATE AMINO TRANSFERASE 27 Units/L (15-37); BLOOD UREA NITROGEN 40 mg/dL (7-18); CALCIUM 9.1 mg/dL (8.5-10.1); CARBON DIOXIDE 33.9 mmol/L (21-32); CHLORIDE 108 mmol/L (98-107); COR CA(FOR HYPOALB) 10.1 mg/dL (8.5-10.1); COR NA(FOR HYPERGLY) 151 mmol/L (136-145); CREATININE 0.88 mg/dL (0.70-1.30); SODIUM 148 mmol/L (136-145); TOTAL PROTEIN 7.3 g/dL (6.4-8.2); eGFR NON BLACK RACES > 60 (>60)
--- NOTE | 2020-04-11 06:56 | RAD ---
HISTORYPneumonia SOBSTUDYPortable AP [id number]/01/2020FINDINGSContinued normal heart size. Stable position of injection port. Incr easing infiltrate in both lower lobes, right greater than left. The upper lungs remain clear. No pneu mothorax is seen.IMPRESSIONSlight apparent interval increase in bilateral lower lobe infiltrates/pneu monia.Electronically signed by: YVETTE DE LA CRUZ (Apr 11, 2020 06:55:04)
[2020-04-11] MEDS: D5 1/2 NS 1000 ML 1,000 ML IV SCH ×2 (06:57→14:30)
[2020-04-11] MEDS: DUONEB 0.5 MG/3 MG (3 mL) NEB SCH ×4 (08:50→20:10)
[2020-04-11] MEDS: PULMICORT NEB TX 0.5 MG NEB SCH ×2 (08:50→20:10)
[2020-04-11] MEDS ORDERED: GLUCOPHAGE ONE ×2 (10:20→20:32)
--- NOTE | 2020-04-11 10:26 | DR.H&P ---
H&P - History & Physical for Day of: H&P Date: 04/10/20 - Chief Complaint Chief Complaint: LETHARGIC, ELEVATED GLUCOSE LEVELS, FEVER - History of Present Illness History of Present Illness: IS A 60 YEAR OLD PATIENT OF . HE IS A RESIDENT OF [facility]. [facility] STAFF REPORTS THAT HIS BLOOD GLUCOSE LEVELS HAVE BEEN ELEVATED, CLOSE TO 500, AND THAT HE HAS HAD FEVER AND BEEN UNRESPONSIVE. PATIENT HAS A HISTORY OF COLON CANCER, CAD, CVA, DIABETES, GERD, AND SEIZURES. [facility] STAFF REPORTS THAT HE FREQUENTLY HAS ASPIRATION PNEUMONIA. HE HAS HAD THREE NEGATIVE COVID-19 RESULTS. ON ARRIVAL TO THE ER, PATIENT IS NOTED TO BE LETHARGIC. HE IS NOTED WITH SCATTERED WHEEZING AND RHONCHI ON AUSCULTATION OF LUNG LOW. ON ARRIVAL, VITALS WERE 100.5-533-10-100%-127/78. LABS WERE OBTAINED. ABNORMAL LAB VALUES INCLUDE THE FOLLOWING: WBC 18.5, RBC 3.70, HGB 10.7, HCT 33.4, GLUCOSE 146, CARBON DIOXIDE 37.1, BUN 41, GLUCOSE 409, LACTIC ACID 2.6, ALK PHOS 144, CRP 82.0, ALBUMIN 3.3, GLOBULIN 4.8. CARDIAC ENZYMES WITHIN NORMAL LIMITS. ABG REVEALED: PH 7.430, PC02 60.0, P02 133.0, HC03 39.8, BASE EXCESS 13.0, 02 SATURATION 99.0, FIO2 28.0. URINALYSIS IS UNREMARKABLE. BLOOD CULTURES WERE SET UP. A CHEST XRAY WAS OBTAINED AND REVEALED: The trachea is midline. The cardiac silhouette is unremarkable. There is persistent airspace disease within the right lung base. There has been improved aeration in the left lung base from prior study. The upper lung low remain clear. Right Port-A-Cath unchanged. The bony thorax is unremarkable. RAPID COVID WAS NEGATIVE, HOWEVER, A SEND OUT SWAB WAS OBTAINED. HE WAS GIVEN FORTAZ 1G IV, ROCEPHIN 1G IV, HUMULIN R 10 UNITS X 1, AND A NORMAL SALINE BOLUS IN THE ER. HE WAS ALSO GIVEN HUMULIN R 10 UNITS AT THE [facility], PRIOR TO ARRIVAL. WHILE IN THE ER, HIS BLOOD GLUCOSE LEVEL DROPPED TO 50. HE WAS GIVEN AN AMP OF D50. BLOOD GLUCOSE THEN INCREASED TO 185. HE WAS ADMITTED TO THE HOSPITAL FOR FURTHER EVALUATION AND TREATMENT OF PNEUMONIA. HE WAS STARTED ON D51/2NS AT 50 ML/HR, LEVAQUIN 500MG IV DAILY, FORTAZ 1G IV Q8H, DUONEBS QID, PULMICORT BID, HUMULIN R SLIDING SCLAE, AND HIS HOME MEDICATIONS WERE RESUMED. OTHERWISE, WE PLAN TO FOLLOW UP WITH AM LABS AND CHEST XRAY AND CONTINUE TO MONITOR. - Past Medical History Past Medical History: Coronary Artery Disease, Diabetes, CVA, Seizures, GERD Additional Medical History: RECTAL CANCER - Past Surgical History Surgical History: Unknown - Social History Does patient currently use any type of tobacco product: No Have you used tobacco products in the last 12 months: No Type of Tobacco Use: None Does any household member use tobacco: No Alcohol Use: None Drug Use: None - Medications Home Medications: No Known Drug Allergies Allergy (Verified 10/20/18 18:36) CONTINUE taking the following medications aspirin [Aspirin Low Dose] 81 mg PO DAILY 04/10/20 [History] clopidogrel 75 mg PO DAILY 04/10/20 [History] ferrous fumarate [Hemocyte] 324 mg PO DAILY 04/10/20 [History] hydrocodone-acetaminophen 1 tab PO Q8H PRN 04/10/20 [History] - Review of Systems Constitutional: Fever, Chills, Weakness Eyes: No Symptoms Reported ENT: No Symptoms Reported Respiratory: See HPI, Sputum, Wheezing Cardiovascular: No Symptoms Reported Gastrointestinal: No Symptoms Reported Genitourinary: No Symptoms Reported Musculoskeletal: No Symptoms Reported Skin: No Symptoms Reported Neurological: See HPI, Weakness, Other (LETHARGIC) - Physical Exam Vital Signs: Temperature 100.9 F Pulse Rate [Left Brachial] 133 Pulse Rate 114 Respiratory Rate 18 Blood Pressure [Right Arm] 132/67 Blood Pressure [Left Arm] 102/61 Blood Pressure 103/62 O2 Sat by Pulse Oximetry 100 Oriented: Unable to test Eyes: Normal Ear: Normal Nose: Normal Throat: Normal Respiratory: Rhonchi Throughout, Wheezes Throughout Cardiovascular: Tachycardia. negative: S3, S4, Murmur : Normal Auscultation: Bowel Sounds: Normal Palpation: Normal Tenderness: Normal Skin: Decreased Turgur Musculoskeletal: Normal Psychiatric: Other (PATIENT IS LETHARGIC) Mood Description: Flat Affect: Flat Speech Pattern: Aphasic - Assessment/Plan (1) Pneumonia Qualifiers: Pneumonia type: aspiration pneumonia Aspiration pneumonia type: unspecified Laterality: bilateral Lung location: lower lobe of lung Qualified Code(s): J69.0 - Pneumonitis due to inhalation of food and vomit Status: Acute - Allergies Allergies/Adverse Reactions: Allergies Allergy/AdvReac Type Severity Reaction Status Date / Time No Known Drug Allergies Allergy Verified 10/20/18 18:36
[2020-04-11] MEDS: FORTAZ or TAZICEF VIAL INJ 1 G in NS 100 ML IV + SPIKE MINIBAG* 100 ML IV SCH ×3 (10:30→21:53)
[2020-04-11] MEDS: PLAVIX PO SCH (10:40)
[2020-04-11] MEDS: PROTONIX TAB 40 MG PO SCH ×2 (10:40→21:53)
[2020-04-11] MEDS: COLACE CAP 100 MG PO SCH (10:40)
[2020-04-11] MEDS: ASPIRIN EC 81 MG PO SCH (10:40)
[2020-04-11] MEDS: GLUCOPHAGE PO SCH ×2 (10:40→21:50)
[2020-04-11] MEDS: MOBIC TAB 15 MG PO SCH (10:40)
[2020-04-11] MEDS: LEVAQUIN PREMIX IV 500 MG 500 MG/100 ML BAG IV SCH (11:40)
[2020-04-11] MEDS: PATIENT'S HOME MEDICATION (Ferrous Fumarate [Hemocyte] 324 MG) PO SCH (12:24)
[2020-04-11] MEDS ORDERED: KEPPRA TAB 500 MG ONE ×2 (13:26→20:33)
[2020-04-11] MEDS: LEVETIRACETAM 500 MG PO SCH ×2 (13:26→21:51)
[2020-04-11 15:03] VITALS: BMI 15.1
[2020-04-11] MEDS ORDERED: NS 1000 ML 1,000 ML ONE (16:58)
[2020-04-11] MEDS: NS 1000 ML 1,000 ML IV SCH (17:00)
[2020-04-11] MEDS: LIPITOR TAB 40 MG PO SCH (21:51)
[2020-04-11] MEDS: NEURONTIN CAP 100 MG PO SCH (21:52)
[2020-04-11] MEDS: ZOLOFT PO SCH (21:53)
[2020-04-11] MEDS: SNACK - Diabetic Appropriate PO SCH (21:53)
[2020-04-12 05:16] LABS: BASOPHILS # (AUTO) 0.1 X10^3/uL (0.0-0.1); BASOPHILS % (AUTO) 0.4 % (0.2-1.0); EOSINOPHILS % (AUTO) 0.1 % (0.9-2.9); HEMATOCRIT 29.3 % (42.0-54.0); HEMOGLOBIN 9.2 g/dL (13.5-18.0); LYMPHOCYTES # (AUTO) 0.7 X10^3/uL (1.3-2.9); LYMPHOCYTES % (AUTO) 5.5 % (21.0-51.0); MEAN CORPUSCULAR HEMOGLOBIN 28.7 pg (27.0-34.0); MEAN CORPUSCULAR HGB CONC 31.5 g/dL (33.0-35.0); MEAN CORPUSCULAR VOLUME 91.3 fL (80.0-100.0); MEAN PLATELET VOLUME 10.7 fL (7.4-11.0); MONOCYTES # (AUTO) 1.3 x10^3/uL (0.3-0.8); MONOCYTES % (AUTO) 9.7 % (0.0-13.0); NEUTROPHILS # (AUTO) 11.3 x10^3/uL (2.2-4.8); NEUTROPHILS % (AUTO) 84.3 % (42.0-75.0); PLATELET COUNT 225 X10^3/uL (150.0-450.0); RED BLOOD COUNT 3.21 X10^6/uL (4.7-6.0); RED CELL DISTRIBUTION WIDTH 17.2 % (11.6-16.5); WHITE BLOOD COUNT 13.4 X10^3/uL (3.6-10.0)
[2020-04-12 05:30] LABS: ALANINE AMINOTRANSFERASE 47 Units/L (12-78); ALBUMIN 2.7 g/dL (3.4-5.0); ALKALINE PHOSPHATASE 110 Units/L (46-116); ASPARTATE AMINO TRANSFERASE 46 Units/L (15-37); BLOOD UREA NITROGEN 46 mg/dL (7-18); CALCIUM 9.3 mg/dL (8.5-10.1); CARBON DIOXIDE 33.6 mmol/L (21-32); CHLORIDE 114 mmol/L (98-107); COR CA(FOR HYPOALB) 10.3 mg/dL (8.5-10.1); COR NA(FOR HYPERGLY) 159 mmol/L (136-145); CREATININE 0.99 mg/dL (0.70-1.30); TOTAL PROTEIN 7.7 g/dL (6.4-8.2); eGFR NON BLACK RACES > 60 (>60)
[2020-04-12] MEDS: FORTAZ or TAZICEF VIAL INJ 1 G in NS 100 ML IV + SPIKE MINIBAG* 100 ML IV SCH ×3 (05:36→22:00)
[2020-04-12 05:56] LABS: SODIUM 154 mmol/L (136-145)
--- NOTE | 2020-04-12 06:22 | RAD ---
HISTORYNo change left basilar lung infiltrate shortness of breathSTUDYChest AP [id number]/02/2020FINDINGSThere is a port present on the right. The heart is within normal limits in size. The rashaad are normal. Haziness in the right lung base is likely due to right pleural e ffusion although some infiltrate may also be present. Left basilar infiltrate is unchanged. The upper lung onofre are clear. Bony thorax is unremarkable.IMPRESSIONIncreasing right pleural effusion. Ther e may also be some right basilar lung infiltrate present and unchanged.Electronically signed by: STACIE DALTON (Apr 12, 2020 06:21:28)
[2020-04-12] MEDS ORDERED: GLUCOPHAGE ONE ×2 (08:46→20:40)
[2020-04-12] MEDS ORDERED: LASIX ONE (09:08)
[2020-04-12] MEDS: ASPIRIN EC 81 MG PO SCH (09:44)
[2020-04-12] MEDS: DUONEB 0.5 MG/3 MG (3 mL) NEB SCH ×4 (09:45→20:00)
[2020-04-12] MEDS: PULMICORT NEB TX 0.5 MG NEB SCH ×2 (09:45→20:00)
[2020-04-12] MEDS: GLUCOPHAGE PO SCH ×2 (09:45→22:00)
[2020-04-12] MEDS: MOBIC TAB 15 MG PO SCH (09:46)
[2020-04-12] MEDS: LEVAQUIN PREMIX IV 500 MG 500 MG/100 ML BAG IV SCH (09:46)
[2020-04-12] MEDS: LASIX IVP SCH (09:46)
[2020-04-12] MEDS: PLAVIX PO SCH (09:47)
[2020-04-12] MEDS ORDERED: PHARMACY CONSULT LTC MEDICATIONS XX SCH (10:00)
[2020-04-12] MEDS ORDERED: KEPPRA TAB 500 MG ONE (10:47)
[2020-04-12] MEDS: FERROUS GLUCONATE PO SCH (11:30)
[2020-04-12] MEDS: PROTONIX INJ 40 MG VIAL IVP SCH (11:38)
[2020-04-12] MEDS: KEPPRA TAB 500 MG PO SCH ×2 (11:38→22:00)
[2020-04-12] MEDS: COLACE SYRUP 100 MG UDC PO SCH (11:38)
[2020-04-12] MEDS ORDERED: NS 1/2 1000 ML IV 1,000 ML IV ONE (11:44)
[2020-04-12] MEDS: NS 1/2 1000 ML IV 1,000 ML IV SCH ×2 (11:58→22:00)
[2020-04-12] MEDS: HumuLIN R SUBCUT PRN ×3 (13:15→22:00)
[2020-04-12] MEDS: PROTONIX TAB 40 MG PO SCH (18:54)
[2020-04-12] MEDS: LEVETIRACETAM 500 MG PO SCH (18:55)
[2020-04-12] MEDS: COLACE CAP 100 MG PO SCH (18:56)
[2020-04-12] MEDS: PATIENT'S HOME MEDICATION (Ferrous Fumarate [Hemocyte] 324 MG) PO SCH (18:56)
[2020-04-12] MEDS: NS 1000 ML 1,000 ML IV SCH (18:56)
[2020-04-12] MEDS: ZOLOFT PO SCH (21:30)
[2020-04-12] MEDS: NEURONTIN CAP 100 MG PO SCH (22:00)
[2020-04-12] MEDS: LIPITOR TAB 40 MG PO SCH (22:00)
[2020-04-12] MEDS: NORCO 5/325 MG TAB PO PRN (22:00)
[2020-04-12] MEDS: SNACK - Diabetic Appropriate PO SCH (22:00)
[2020-04-13] MEDS: FORTAZ or TAZICEF VIAL INJ 1 G in NS 100 ML IV + SPIKE MINIBAG* 100 ML IV SCH ×3 (05:23→21:10)
[2020-04-13 05:32] LABS: BASOPHILS % (AUTO) 0.2 % (0.2-1.0); EOSINOPHILS # (AUTO) 0.1 x10^3/uL (0.0-0.2); EOSINOPHILS % (AUTO) 0.9 % (0.9-2.9); HEMATOCRIT 25.5 % (42.0-54.0); HEMOGLOBIN 8.2 g/dL (13.5-18.0); LYMPHOCYTES % (AUTO) 8.1 % (21.0-51.0); MEAN CORPUSCULAR HEMOGLOBIN 28.5 pg (27.0-34.0); MEAN CORPUSCULAR HGB CONC 32.1 g/dL (33.0-35.0); MEAN CORPUSCULAR VOLUME 88.9 fL (80.0-100.0); MEAN PLATELET VOLUME 9.9 fL (7.4-11.0); MONOCYTES # (AUTO) 0.7 x10^3/uL (0.3-0.8); MONOCYTES % (AUTO) 6.2 % (0.0-13.0); NEUTROPHILS % (AUTO) 84.6 % (42.0-75.0); PLATELET COUNT 210 X10^3/uL (150.0-450.0); RED BLOOD COUNT 2.87 X10^6/uL (4.7-6.0); RED CELL DISTRIBUTION WIDTH 16.8 % (11.6-16.5); WHITE BLOOD COUNT 11.9 X10^3/uL (3.6-10.0)
[2020-04-13 05:36] LABS: ALANINE AMINOTRANSFERASE 51 Units/L (12-78); ALBUMIN 2.4 g/dL (3.4-5.0); ALKALINE PHOSPHATASE 105 Units/L (46-116); ASPARTATE AMINO TRANSFERASE 44 Units/L (15-37); BLOOD UREA NITROGEN 40 mg/dL (7-18); CALCIUM 8.8 mg/dL (8.5-10.1); CARBON DIOXIDE 35.1 mmol/L (21-32); CHLORIDE 112 mmol/L (98-107); COR CA(FOR HYPOALB) 10.1 mg/dL (8.5-10.1); COR NA(FOR HYPERGLY) 152 mmol/L (136-145); CREATININE 0.65 mg/dL (0.70-1.30); TOTAL PROTEIN 6.6 g/dL (6.4-8.2); eGFR NON BLACK RACES > 60 (>60)
[2020-04-13 06:00] LABS: SODIUM 151 mmol/L (136-145)
[2020-04-13] MEDS ORDERED: POTASSIUM CHL 40 MEQ/NS 0.45% 500 ML IV PRN (06:07)
[2020-04-13] MEDS ORDERED: MICRO K EXTEN CAP 10 MEQ PO PRN (06:07)
[2020-04-13] MEDS ORDERED: POTASSIUM CHL 60 MEQ/NS 0.45% 500 ML IV PRN (06:07)
[2020-04-13] MEDS ORDERED: K-RIDER 10 MEQ/NS 100 ML 10 MEQ/100 ML BAG IV PRN (06:07)
[2020-04-13] MEDS ORDERED: POTASSIUM CHLORIDE LIQ 20 MEQ UDC PO PRN (06:07)
[2020-04-13] MEDS ORDERED: K-DUR TAB 20 MEQ PO PRN (06:07)
[2020-04-13] MEDS ORDERED: KLOR-CON PO PRN (06:07)
--- NOTE | 2020-04-13 06:21 | RAD ---
HISTORYSOBSTUDYCHEST, 1 VSOLAZSWYMJXFV93/03/2020FINDINGSThe trachea is midline. Right Port-A-Cath, unchanged. Is the cardiac silhouette is unremarkable. Left basilar infiltrate, unchanged. Increased haziness within the right lung base due to pleural effusion and/or right infiltrate also unchanged. No pneumothorax.. The bony thorax is unremarkable.IMPRESSIONLeft basilar infiltrate, right pleural effusion and/or right basilar infiltrate. No significant change from 04/12/2020Electronically signed by: Robin Kohli (Apr 13, 2020 06:20:23)
[2020-04-13] MEDS ORDERED: POTASSIUM CHLORIDE LIQ 20 MEQ UDC ONE (06:35)
[2020-04-13] MEDS ORDERED: GLUCOPHAGE ONE ×2 (08:39→19:41)
[2020-04-13] MEDS: DUONEB 0.5 MG/3 MG (3 mL) NEB SCH ×4 (08:50→20:48)
[2020-04-13] MEDS: PULMICORT NEB TX 0.5 MG NEB SCH ×2 (08:50→20:48)
[2020-04-13] MEDS: ASPIRIN EC 81 MG PO SCH (09:53)
[2020-04-13] MEDS: COLACE SYRUP 100 MG UDC PO SCH (09:53)
[2020-04-13] MEDS: LASIX IVP SCH (09:54)
[2020-04-13] MEDS: FERROUS GLUCONATE PO SCH (09:54)
[2020-04-13] MEDS: GLUCOPHAGE PO SCH ×2 (09:54→20:45)
[2020-04-13] MEDS: KEPPRA TAB 500 MG PO SCH ×2 (09:54→20:46)
[2020-04-13] MEDS: MOBIC TAB 15 MG PO SCH (09:55)
[2020-04-13] MEDS: LEVAQUIN PREMIX IV 500 MG 500 MG/100 ML BAG IV SCH (09:55)
[2020-04-13] MEDS: PLAVIX PO SCH (09:56)
[2020-04-13] MEDS: NORCO 5/325 MG TAB PO PRN (09:57)
[2020-04-13] MEDS: PROTONIX INJ 40 MG VIAL IVP SCH (09:57)
[2020-04-13] MEDS ORDERED: NS 1/2 1000 ML IV 1,000 ML IV ONE (12:22)
[2020-04-13] MEDS: NS 1/2 1000 ML IV 1,000 ML IV SCH (12:50)
[2020-04-13] MEDS: HumuLIN R SUBCUT PRN ×2 (13:40→16:23)
[2020-04-13] MEDS: MAGNESIUM SULFATE 1 GRAM/100 mL PREMIX 1 GM/100 ML BAG IV PRN ×2 (14:59→16:10)
[2020-04-13] MEDS ORDERED: ZOLOFT PO ONE (19:41)
[2020-04-13] MEDS: NEURONTIN CAP 100 MG PO SCH (20:45)
[2020-04-13] MEDS: ZOLOFT PO SCH (20:46)
[2020-04-13] MEDS: SNACK - Diabetic Appropriate PO SCH (20:47)
[2020-04-13] MEDS: LIPITOR TAB 40 MG PO SCH (20:47)
[2020-04-14] MEDS: NS 1/2 1000 ML IV 1,000 ML IV SCH ×2 (01:15→18:40)
[2020-04-14] MEDS: FORTAZ or TAZICEF VIAL INJ 1 G in NS 100 ML IV + SPIKE MINIBAG* 100 ML IV SCH ×3 (05:39→21:27)
[2020-04-14 05:44] LABS: ABG HCO3 35.8 mmol/L (22-26)
--- NOTE | 2020-04-14 06:24 | RAD ---
HISTORYShortness of breathSTUDYChest AP actzqjsqEMPPSAFFSG78/04/2020FINDINGSThere is a right-sided port present. The heart is within normal l imits in size. Fatimah are normal. Haziness in both lower lobes is likely due to a combination of pleura l effusions and lower lobe infiltrates. The upper lung onofre remain clear. Bony thorax is unremarkab le.IMPRESSIONNo change haziness in the lower lobes bilaterally likely due to a combination of pleural effusions and underlying infiltrates.Electronically signed by: RAMIRO DALTON (Apr 14, 2020 06:23:16)
[2020-04-14 06:38] LABS: ALANINE AMINOTRANSFERASE 40 Units/L (12-78); ALBUMIN 2.2 g/dL (3.4-5.0); ALKALINE PHOSPHATASE 90 Units/L (46-116); ASPARTATE AMINO TRANSFERASE 31 Units/L (15-37); BASOPHILS % (AUTO) 0.4 % (0.2-1.0); BLOOD UREA NITROGEN 24 mg/dL (7-18); CALCIUM 8.4 mg/dL (8.5-10.1); CARBON DIOXIDE 32.2 mmol/L (21-32); CHLORIDE 103 mmol/L (98-107); COR CA(FOR HYPOALB) 9.8 mg/dL (8.5-10.1); COR NA(FOR HYPERGLY) 142 mmol/L (136-145); CREATININE 0.58 mg/dL (0.70-1.30); EOSINOPHILS # (AUTO) 0.3 x10^3/uL (0.0-0.2); EOSINOPHILS % (AUTO) 4.4 % (0.9-2.9); HEMATOCRIT 23.6 % (42.0-54.0); HEMOGLOBIN 7.6 g/dL (13.5-18.0); LYMPHOCYTES # (AUTO) 0.8 X10^3/uL (1.3-2.9); LYMPHOCYTES % (AUTO) 10.9 % (21.0-51.0); MAGNESIUM 1.5 mg/dL (1.7-2.9); MEAN CORPUSCULAR HEMOGLOBIN 29.1 pg (27.0-34.0); MEAN CORPUSCULAR HGB CONC 32.4 g/dL (33.0-35.0); MEAN CORPUSCULAR VOLUME 89.7 fL (80.0-100.0); MEAN PLATELET VOLUME 10.3 fL (7.4-11.0); MONOCYTES # (AUTO) 0.7 x10^3/uL (0.3-0.8); MONOCYTES % (AUTO) 8.4 % (0.0-13.0); NEUTROPHILS # (AUTO) 5.9 x10^3/uL (2.2-4.8); NEUTROPHILS % (AUTO) 75.9 % (42.0-75.0); PLATELET COUNT 183 X10^3/uL (150.0-450.0); RED BLOOD COUNT 2.63 X10^6/uL (4.7-6.0); RED CELL DISTRIBUTION WIDTH 17.2 % (11.6-16.5); SODIUM 140 mmol/L (136-145); WHITE BLOOD COUNT 7.8 X10^3/uL (3.6-10.0); eGFR NON BLACK RACES > 60 (>60)
[2020-04-14 06:45] LABS: SERUM ACETONE NEGATIVE (NEGATIVE)
[2020-04-14 07:13] LABS: BAND NEUTROPHILS % 2 % (0-10); PLATELET MORPHOLOGY COMMENT NORMAL (NORMAL)
[2020-04-14] MEDS ORDERED: GLUCOPHAGE ONE ×2 (08:22→20:33)
[2020-04-14] MEDS: LEVAQUIN PREMIX IV 500 MG 500 MG/100 ML BAG IV SCH (08:34)
[2020-04-14] MEDS: LASIX IVP SCH ×2 (08:35→17:30)
[2020-04-14] MEDS: MOBIC TAB 15 MG PO SCH (08:35)
[2020-04-14] MEDS: PROTONIX INJ 40 MG VIAL IVP SCH (08:35)
[2020-04-14] MEDS: GLUCOPHAGE PO SCH ×2 (08:36→21:25)
[2020-04-14] MEDS: ASPIRIN EC 81 MG PO SCH (08:36)
[2020-04-14] MEDS: KEPPRA TAB 500 MG PO SCH ×2 (08:36→21:25)
[2020-04-14] MEDS: PLAVIX PO SCH (08:37)
[2020-04-14] MEDS: COLACE SYRUP 100 MG UDC PO SCH (08:38)
[2020-04-14] MEDS: FERROUS GLUCONATE PO SCH (08:38)
[2020-04-14] MEDS: PULMICORT NEB TX 0.5 MG NEB SCH ×2 (09:20→20:42)
[2020-04-14] MEDS: DUONEB 0.5 MG/3 MG (3 mL) NEB SCH ×4 (09:20→20:42)
--- NOTE | 2020-04-14 11:03 | RAD ---
HISTORYABD PAIN CAD, DM, COOYLGXOETUSJHGVRMGMO30/23/2020.FINDINGSNonobstructive bowel gas pattern. No definite pneumatosis, fr ee air or portal venous gas. No suspicious calcifications. Peg tube in situ. Moderate amount of stool in the descending and sigmoid colon.IMPRESSIONNonobstructive bowel gas pattern.Electronically signed by: Stewart Man (Apr 14, 2020 11:02:18)
[2020-04-14] MEDS: MAGNESIUM SULFATE 1 GRAM/100 mL PREMIX 1 GM/100 ML BAG IV PRN ×2 (11:50→13:25)
[2020-04-14] MEDS ORDERED: MILK OF MAGNESIA PO ONE (17:14)
[2020-04-14] MEDS ORDERED: MILK OF MAGNESIA ONE (17:29)
[2020-04-14] MEDS ORDERED: NS 1/2 1000 ML IV 1,000 ML IV ONE (18:34)
[2020-04-14] MEDS: NEURONTIN CAP 100 MG PO SCH (21:24)
[2020-04-14] MEDS: LIPITOR TAB 40 MG PO SCH (21:24)
[2020-04-14] MEDS: ZOLOFT PO SCH (21:25)
[2020-04-14] MEDS: SNACK - Diabetic Appropriate PO SCH (21:27)
[2020-04-15] MEDS: NS 1/2 1000 ML IV 1,000 ML IV SCH ×2 (05:45→14:40)
[2020-04-15] MEDS: FORTAZ or TAZICEF VIAL INJ 1 G in NS 100 ML IV + SPIKE MINIBAG* 100 ML IV SCH ×3 (05:46→21:41)
--- NOTE | 2020-04-15 06:19 | RAD ---
HISTORYSOBSTUDYCHEST x-ray, 1 VIEWCOMPARISONX-ray 04/14/2020FINDINGSPort catheter terminates in the region of the distal SVC. Heart is normal in size. Moderate bilateral pleural effusions are similar to prior study. No pneumothorax is seen. Likely associated atelectasis in the lower lungs. Mild bilateral pneumonia is not excluded.IMPRESSIONNo acute cardiopulmonary abnormality is seen.Electronically signed by: Nash Delgado (Apr 15, 2020 06:18:26)
[2020-04-15 06:25] LABS: BASOPHILS % (AUTO) 0.5 % (0.2-1.0); EOSINOPHILS # (AUTO) 0.3 x10^3/uL (0.0-0.2); EOSINOPHILS % (AUTO) 3.9 % (0.9-2.9); HEMATOCRIT 22.7 % (42.0-54.0); HEMOGLOBIN 7.5 g/dL (13.5-18.0); LYMPHOCYTES # (AUTO) 0.9 X10^3/uL (1.3-2.9); LYMPHOCYTES % (AUTO) 10.7 % (21.0-51.0); MEAN CORPUSCULAR HGB CONC 33.1 g/dL (33.0-35.0); MEAN CORPUSCULAR VOLUME 87.6 fL (80.0-100.0); MEAN PLATELET VOLUME 9.6 fL (7.4-11.0); MONOCYTES # (AUTO) 0.7 x10^3/uL (0.3-0.8); MONOCYTES % (AUTO) 8.3 % (0.0-13.0); NEUTROPHILS # (AUTO) 6.4 x10^3/uL (2.2-4.8); NEUTROPHILS % (AUTO) 76.6 % (42.0-75.0); PLATELET COUNT 194 X10^3/uL (150.0-450.0); RED BLOOD COUNT 2.59 X10^6/uL (4.7-6.0); RED CELL DISTRIBUTION WIDTH 16.9 % (11.6-16.5); WHITE BLOOD COUNT 8.4 X10^3/uL (3.6-10.0)
[2020-04-15 06:39] LABS: ALANINE AMINOTRANSFERASE 30 Units/L (12-78); ALBUMIN 2.2 g/dL (3.4-5.0); ALKALINE PHOSPHATASE 92 Units/L (46-116); ASPARTATE AMINO TRANSFERASE 21 Units/L (15-37); BLOOD UREA NITROGEN 15 mg/dL (7-18); CALCIUM 8.2 mg/dL (8.5-10.1); CARBON DIOXIDE 34.5 mmol/L (21-32); CHLORIDE 98 mmol/L (98-107); COR CA(FOR HYPOALB) 9.6 mg/dL (8.5-10.1); COR NA(FOR HYPERGLY) 138 mmol/L (136-145); MAGNESIUM 1.4 mg/dL (1.7-2.9); SODIUM 136 mmol/L (136-145); TOTAL PROTEIN 5.9 g/dL (6.4-8.2); eGFR NON BLACK RACES > 60 (>60)
[2020-04-15 07:12] LABS: BAND NEUTROPHILS % 2 % (0-10)
[2020-04-15 07:13] LABS: PLATELET MORPHOLOGY COMMENT NORMAL (NORMAL)
[2020-04-15] MEDS: DUONEB 0.5 MG/3 MG (3 mL) NEB SCH ×4 (08:30→21:40)
[2020-04-15] MEDS: PULMICORT NEB TX 0.5 MG NEB SCH ×2 (08:30→21:40)
[2020-04-15] MEDS ORDERED: GLUCOPHAGE ONE (08:54)
[2020-04-15] MEDS: ASPIRIN EC 81 MG PO SCH (09:36)
[2020-04-15] MEDS: COLACE SYRUP 100 MG UDC PO SCH (09:37)
[2020-04-15] MEDS: FERROUS GLUCONATE PO SCH (09:37)
[2020-04-15] MEDS: LEVAQUIN PREMIX IV 500 MG 500 MG/100 ML BAG IV SCH (09:37)
[2020-04-15] MEDS: LASIX IVP SCH (09:38)
[2020-04-15] MEDS: GLUCOPHAGE PO SCH ×2 (09:38→21:40)
[2020-04-15] MEDS: KEPPRA TAB 500 MG PO SCH ×2 (09:38→21:39)
[2020-04-15] MEDS: MOBIC TAB 15 MG PO SCH (09:39)
[2020-04-15] MEDS: PROTONIX INJ 40 MG VIAL IVP SCH (09:39)
[2020-04-15] MEDS: PLAVIX PO SCH (09:42)
[2020-04-15] MEDS ORDERED: ASPIRIN 81 MG CHEWTAB ONE (10:04)
[2020-04-15] MEDS: ASPIRIN 81 MG CHEWTAB PO SCH (10:29)
[2020-04-15] MEDS: HumuLIN R SUBCUT PRN ×2 (13:01→17:16)
[2020-04-15] MEDS: MAGNESIUM SULFATE 1 GRAM/100 mL PREMIX 1 GM/100 ML BAG IV PRN ×4 (13:40→18:48)
[2020-04-15] MEDS: NEURONTIN CAP 100 MG PO SCH (21:40)
[2020-04-15] MEDS: LIPITOR TAB 40 MG PO SCH (21:40)
[2020-04-15] MEDS: SNACK - Diabetic Appropriate PO SCH (21:41)
[2020-04-15] MEDS: ZOLOFT PO SCH (21:41)
[2020-04-16] MEDS ORDERED: NS 1/2 1000 ML IV 1,000 ML IV ONE (02:15)
[2020-04-16] MEDS: NS 1/2 1000 ML IV 1,000 ML IV SCH ×3 (02:48→17:55)
[2020-04-16] MEDS: FORTAZ or TAZICEF VIAL INJ 1 G in NS 100 ML IV + SPIKE MINIBAG* 100 ML IV SCH ×3 (05:48→21:30)
[2020-04-16 06:13] LABS: BASOPHILS % (AUTO) 0.2 % (0.2-1.0); EOSINOPHILS # (AUTO) 0.4 x10^3/uL (0.0-0.2); EOSINOPHILS % (AUTO) 4.6 % (0.9-2.9); HEMATOCRIT 23.7 % (42.0-54.0); HEMOGLOBIN 7.8 g/dL (13.5-18.0); LYMPHOCYTES # (AUTO) 0.8 X10^3/uL (1.3-2.9); LYMPHOCYTES % (AUTO) 9.2 % (21.0-51.0); MEAN CORPUSCULAR HEMOGLOBIN 28.8 pg (27.0-34.0); MEAN CORPUSCULAR HGB CONC 32.8 g/dL (33.0-35.0); MEAN CORPUSCULAR VOLUME 87.8 fL (80.0-100.0); MONOCYTES # (AUTO) 0.8 x10^3/uL (0.3-0.8); MONOCYTES % (AUTO) 8.7 % (0.0-13.0); NEUTROPHILS % (AUTO) 77.3 % (42.0-75.0); PLATELET COUNT 209 X10^3/uL (150.0-450.0); RED CELL DISTRIBUTION WIDTH 16.8 % (11.6-16.5)
[2020-04-16 06:30] LABS: ALANINE AMINOTRANSFERASE 35 Units/L (12-78); ALBUMIN 2.3 g/dL (3.4-5.0); ALKALINE PHOSPHATASE 126 Units/L (46-116); ASPARTATE AMINO TRANSFERASE 38 Units/L (15-37); BLOOD UREA NITROGEN 13 mg/dL (7-18); CALCIUM 8.8 mg/dL (8.5-10.1); CARBON DIOXIDE 33.9 mmol/L (21-32); CHLORIDE 98 mmol/L (98-107); COR CA(FOR HYPOALB) 10.2 mg/dL (8.5-10.1); COR NA(FOR HYPERGLY) 136 mmol/L (136-145); CREATININE 0.49 mg/dL (0.70-1.30); SODIUM 136 mmol/L (136-145); TOTAL PROTEIN 6.2 g/dL (6.4-8.2); eGFR NON BLACK RACES > 60 (>60)
[2020-04-16 07:05] LABS: BAND NEUTROPHILS % 3 % (0-10)
[2020-04-16 07:06] LABS: PLATELET MORPHOLOGY COMMENT NORMAL (NORMAL)
[2020-04-16] MEDS ORDERED: LASIX IVP SCH (09:00)
[2020-04-16] MEDS: PULMICORT NEB TX 0.5 MG NEB SCH ×2 (09:09→20:30)
[2020-04-16] MEDS: DUONEB 0.5 MG/3 MG (3 mL) NEB SCH ×4 (09:09→20:30)
[2020-04-16] MEDS ORDERED: GLUCOPHAGE ONE ×2 (09:13→20:36)
[2020-04-16] MEDS: ASPIRIN 81 MG CHEWTAB PO SCH (09:18)
[2020-04-16] MEDS: PROTONIX INJ 40 MG VIAL IVP SCH (09:19)
[2020-04-16] MEDS: MAGNESIUM SULFATE 1 GRAM/100 mL PREMIX 1 GM/100 ML BAG IV PRN ×3 (09:19→11:18)
[2020-04-16] MEDS: PLAVIX PO SCH (09:20)
[2020-04-16] MEDS: KEPPRA TAB 500 MG PO SCH ×2 (09:20→21:28)
[2020-04-16] MEDS: COLACE SYRUP 100 MG UDC PO SCH (09:20)
[2020-04-16] MEDS: GLUCOPHAGE PO SCH ×2 (09:20→21:28)
[2020-04-16] MEDS: FERROUS GLUCONATE PO SCH (09:21)
[2020-04-16] MEDS: MOBIC TAB 15 MG PO SCH (09:21)
[2020-04-16] MEDS: LEVAQUIN PREMIX IV 500 MG 500 MG/100 ML BAG IV SCH (09:24)
[2020-04-16] MEDS: NORCO 5/325 MG TAB PO PRN (10:20)
[2020-04-16] MEDS: HumuLIN R SUBCUT PRN (12:57)
--- NOTE | 2020-04-16 15:42 | PCM.PROG ---
Progress Note - Progress Note for Day of Date of Exam: 04/15/20 - Subjective Subjective: The patient is a 60-year-old black male who was admitted via the emergency room with altered mental status, rule out COVID-19. The patient did have pneumonia. Since admission, he has been on IV antibiotics and respiratory therapy along with supplemental oxygen. He was also noted to have dehydration, and hypernatremia. The patients sodium is down to 136 this morning with a BUN of 13 and creatinine at 0.49 The patient continues with some mal-effusions on his chest x-ray. He is being treated with just a low dose of IV Lasix, 20 mg two times a day times two doses that we ordered. He is still just generally weak which is his chronic state but he was more verbally responsive to me today. He did recognize myself. He was denying any pain at this time. The patient did have a KUB as well because his abdomen was a little distended. It showed a moderate amount of stool in the colon. The patient has been afebrile. We repeated his blood gas this morning on room air. - Past Medical Family Social History Past Med/Fam/Surg Hx: No changes since H&P Allergies: Allergies No Known Drug Allergies Allergy (Verified 10/20/18 18:36) - Review of Systems ROS: No change since H&P - Vital Signs and I&O's Vital Signs: Temperature 97.9 F Pulse Rate [Left Brachial] 106 Pulse Rate 105 Respiratory Rate 18 Blood Pressure [Right Arm] 132/67 Blood Pressure [Left Arm] 111/60 Blood Pressure 103/62 O2 Sat by Pulse Oximetry 96 Intake and Output: Intake & Output 04/14/20 04/15/20 04/16/20 04/17/20 11:59 11:59 11:59 11:59 Intake Total 2453 / 2453 797 / 797 2944 / 2944 0 / 0 Output Total 1200 / 1200 3850 / 3850 3000 / 3000 700 / 700 Balance 1253 / 1253 -3053 / -3053 -56 / -56 -700 / -700 - Physical Exam Oriented: Unable to test Eyes: Normal Ear: Normal Nose: Normal Throat: Normal Respiratory: Diminished, Wheezes Cardiovascular: Tachycardia. negative: S3, S4, Murmur : Normal Auscultation: Bowel Sounds: Normal Tenderness: Normal Skin: Decreased Turgur Musculoskeletal: Normal Psychiatric: Other (PATIENT IS LETHARGIC) Mood Description: Flat Affect: Flat Speech Pattern: Unclear - Laboratory and Diagnostics Result Diagrams: 04/16/20 05:35 04/16/20 05:35 Labs: 04/10/20 02:01 Blood Blood Culture - Final 04/10/20 01:53 Blood Blood Culture - Final Laboratory WBC 9.0 X10^3/uL (3.6-10.0) 04/16/20 05:35 RBC 2.70 X10^6/uL (4.7-6.0) L 04/16/20 05:35 Hgb 7.8 g/dL (13.5-18.0) L 04/16/20 05:35 Hct 23.7 % (42.0-54.0) L 04/16/20 05:35 MCV 87.8 fL (80.0-100.0) 04/16/20 05:35 MCH 28.8 pg (27.0-34.0) 04/16/20 05:35 MCHC 32.8 g/dL (33.0-35.0) L 04/16/20 05:35 RDW 16.8 % (11.6-16.5) H 04/16/20 05:35 Plt Count 209 X10^3/uL (150.0-450.0) 04/16/20 05:35 Plt Count Comment Adequate (ADEQUATE) 04/16/20 05:35 MPV 9.0 fL (7.4-11.0) 04/16/20 05:35 Neut % (Auto) 77.3 % (42.0-75.0) H 04/16/20 05:35 Lymph % (Auto) 9.2 % (21.0-51.0) L 04/16/20 05:35 [place] % (Auto) 8.7 % (0.0-13.0) 04/16/20 05:35 Eos % (Auto) 4.6 % (0.9-2.9) H 04/16/20 05:35 Baso % (Auto) 0.2 % (0.2-1.0) 04/16/20 05:35 Neut # (Auto) 7.0 x10^3/uL (2.2-4.8) H 04/16/20 05:35 Lymph # (Auto) 0.8 X10^3/uL (1.3-2.9) L 04/16/20 05:35 [place] # (Auto) 0.8 x10^3/uL (0.3-0.8) 04/16/20 05:35 Eos # (Auto) 0.4 x10^3/uL (0.0-0.2) H 04/16/20 05:35 Baso # (Auto) 0.0 X10^3/uL (0.0-0.1) 04/16/20 05:35 Absolute Nucleated RBC 0.0 /100WBC 04/16/20 05:35 Total Counted 100 04/16/20 05:35 Neutrophils % (Manual) 78 % (39-76) H 04/16/20 05:35 Band Neutrophils % 3 % (0-10) 04/16/20 05:35 Lymphocytes % (Manual) 12 % (13-43) L 04/16/20 05:35 Monocytes % (Manual) 4 % (4-9) 04/16/20 05:35 Eosinophils % (Manual) 3 % (0-6) 04/16/20 05:35 Plt Morphology Comment Normal (NORMAL) 04/16/20 05:35 RBC Morphology Normal (NORMAL) 04/16/20 05:35 Sample Site Lb 04/14/20 05:30 ABG pH 7.490 (7.35-7.45) H 04/14/20 05:30 ABG pCO2 47.0 mmHg (35.0-45.0) H 04/14/20 05:30 ABG pO2 62.0 mmHg (80.0-100.0) L 04/14/20 05:30 ABG HCO3 35.8 mmol/L (22-26) H* 04/14/20 05:30 ABG O2 Saturation 93.0 % (90-100) 04/14/20 05:30 ABG Base Excess 11.0 mmol/L (-2.0-2.0) H 04/14/20 05:30 Hakeem Test N/a 04/14/20 05:30 A-a Gradient 29.0 mmHg 04/14/20 05:30 FiO2 21.0 04/14/20 05:30 Blood Gas Comments Selin well ae 04/14/20 05:30 Sodium 136 mmol/L (136-145) 04/16/20 05:35 Corrected Sodium 136 mmol/L (136-145) 04/16/20 05:35 Potassium 4.3 mmol/L (3.5-5.1) 04/16/20 05:35 Chloride 98 mmol/L (98-107) 04/16/20 05:35 Carbon Dioxide 33.9 mmol/L (21-32) H 04/16/20 05:35 BUN 13 mg/dL (7-18) 04/16/20 05:35 Creatinine 0.49 mg/dL (0.70-1.30) L 04/16/20 05:35 Est GFR (MDRD) Af Amer > 60 (>60) 04/16/20 05:35 Est GFR (MDRD) Non-Af > 60 (>60) 04/16/20 05:35 Glucose 111 mg/dL (65-99) H 04/16/20 05:35 POC Glucose (mg/dL) 165 mg/dL (65-99) H 04/16/20 12:05 Lactic Acid 1.4 mmol/L (0.4-2.0) 04/10/20 15:05 Calcium 8.8 mg/dL (8.5-10.1) 04/16/20 05:35 Corrected Calcium 10.2 mg/dL (8.5-10.1) H 04/16/20 05:35 Magnesium 1.8 mg/dL (1.7-2.9) 04/16/20 05:35 Iron 47 ug/dL (50-175) L 04/16/20 05:35 Transferrin 172 mg/dL (202-364) L 04/16/20 05:35 Ferritin 270 ng/mL (26-388) 04/16/20 05:35 Total Bilirubin 0.10 mg/dL (0.2-1.0) L 04/16/20 05:35 AST 38 Units/L (15-37) H 04/16/20 05:35 ALT 35 Units/L (12-78) 04/16/20 05:35 Alkaline Phosphatase 126 Units/L (46-116) H 04/16/20 05:35 Creatine Kinase 70 Units/L (39-308) 04/10/20 01:53 CK-MB (CK-2) < 1.0 ng/mL (0-4.0) 04/10/20 01:53 CK/CKMB % Calc 1.4 % (<4) 04/10/20 01:53 Troponin I < 0.02 ng/mL (0-1.5) 04/10/20 01:53 C-Reactive Protein 12.00 mg/L (0-3.0) H 04/15/20 05:39 Total Protein 6.2 g/dL (6.4-8.2) L 04/16/20 05:35 Albumin 2.3 g/dL (3.4-5.0) L 04/16/20 05:35 Globulin 3.9 g/dL (2.5-4.5) 04/16/20 05:35 Albumin/Globulin Ratio 0.6 Ratio (1.1-2.1) L 04/16/20 05:35 Vitamin B12 590 pg/mL (193-986) 04/16/20 05:35 Folate 13.7 ng/mL (>8.6) 04/16/20 05:35 Specimen Type Catherized urine 04/10/20 02:39 Urine Color Yellow (YELLOW) 04/10/20 02:39 Urine Appearance Clear (CLEAR) 04/10/20 02:39 Urine pH 7.0 (5.0 - 8.0) 04/10/20 02:39 Ur Specific [place] 1.005 (1.000-1.030) 04/10/20 02:39 Urine Protein 2+ (NEGATIVE) 04/10/20 02:39 Urine Glucose (UA) 4+ (NEGATIVE) 04/10/20 02:39 Urine Ketones Negative (NEGATIVE) 04/10/20 02:39 Urine Occult Blood Negative (NEGATIVE) 04/10/20 02:39 Urine Nitrite Negative (NEGATIVE) 04/10/20 02:39 Urine Bilirubin Negative (NEGATIVE) 04/10/20 02:39 Urine Urobilinogen Normal (NORMAL) 04/10/20 02:39 Ur Leukocyte Esterase Negative (NEGATIVE) 04/10/20 02:39 Urine RBC 0-2 /HPF (0-3) 04/10/20 02:39 Urine WBC None seen /HPF (0-5) 04/10/20 02:39 Ur Squamous Epith Cells Rare /HPF (NEGATIVE) 04/10/20 02:39 Urine Bacteria Negative /HPF (NEGATIVE) 04/10/20 02:39 Ur Culture Indicated? No/not indicated 04/10/20 02:39 Levetiracetam 32 ug/mL (12-46) 04/12/20 19:27 Acetone, Semi-Quant Negative (NEGATIVE) 04/14/20 05:52 SARS-CoV-2 (PCR) Negative (NEGATIVE) 04/10/20 02:25 Miscellaneous Test Covid 19 04/10/20 10:25 - Plan (1) Pneumonia Status: Acute Qualifiers: Pneumonia type: aspiration pneumonia Aspiration pneumonia type: unspecified Laterality: bilateral Lung location: lower lobe of lung Qualified Code(s): J69.0 - Pneumonitis due to inhalation of food and vomit Plan: Pneumonia. Rule out COVID-19. Continue with IV antibiotics along with respiratory therapy and supplemental oxygen and ABGs. Aspirations precautions. 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
[2020-04-16] MEDS: LASIX GT SCH (17:54)
[2020-04-16] MEDS: LIPITOR TAB 40 MG PO SCH (21:28)
[2020-04-16] MEDS: ZOLOFT PO SCH (21:29)
[2020-04-16] MEDS: SNACK - Diabetic Appropriate PO SCH (21:29)
[2020-04-16] MEDS: NEURONTIN CAP 100 MG PO SCH (21:29)
[2020-04-17] MEDS ORDERED: NS 1/2 1000 ML IV 1,000 ML IV ONE (03:35)
[2020-04-17] MEDS: NS 1/2 1000 ML IV 1,000 ML IV SCH ×3 (03:41→19:40)
[2020-04-17] MEDS: FORTAZ or TAZICEF VIAL INJ 1 G in NS 100 ML IV + SPIKE MINIBAG* 100 ML IV SCH ×3 (05:47→21:30)
[2020-04-17 07:00] LABS: BASOPHILS % (AUTO) 0.3 % (0.2-1.0); EOSINOPHILS # (AUTO) 0.3 x10^3/uL (0.0-0.2); EOSINOPHILS % (AUTO) 3.6 % (0.9-2.9); HEMATOCRIT 22.9 % (42.0-54.0); HEMOGLOBIN 7.6 g/dL (13.5-18.0); LYMPHOCYTES # (AUTO) 0.9 X10^3/uL (1.3-2.9); LYMPHOCYTES % (AUTO) 11.6 % (21.0-51.0); MEAN CORPUSCULAR HEMOGLOBIN 29.1 pg (27.0-34.0); MEAN CORPUSCULAR HGB CONC 33.2 g/dL (33.0-35.0); MEAN CORPUSCULAR VOLUME 87.7 fL (80.0-100.0); MEAN PLATELET VOLUME 9.1 fL (7.4-11.0); MONOCYTES # (AUTO) 0.9 x10^3/uL (0.3-0.8); MONOCYTES % (AUTO) 10.7 % (0.0-13.0); NEUTROPHILS % (AUTO) 73.8 % (42.0-75.0); PLATELET COUNT 243 X10^3/uL (150.0-450.0); RED BLOOD COUNT 2.61 X10^6/uL (4.7-6.0); RED CELL DISTRIBUTION WIDTH 16.9 % (11.6-16.5); WHITE BLOOD COUNT 8.1 X10^3/uL (3.6-10.0)
[2020-04-17 07:13] LABS: ALANINE AMINOTRANSFERASE 41 Units/L (12-78); ALBUMIN 2.3 g/dL (3.4-5.0); ALKALINE PHOSPHATASE 124 Units/L (46-116); ASPARTATE AMINO TRANSFERASE 43 Units/L (15-37); BLOOD UREA NITROGEN 11 mg/dL (7-18); CALCIUM 8.5 mg/dL (8.5-10.1); CARBON DIOXIDE 32.2 mmol/L (21-32); CHLORIDE 97 mmol/L (98-107); COR CA(FOR HYPOALB) 9.9 mg/dL (8.5-10.1); COR NA(FOR HYPERGLY) 136 mmol/L (136-145); CREATININE 0.53 mg/dL (0.70-1.30); MAGNESIUM 1.5 mg/dL (1.7-2.9); SODIUM 134 mmol/L (136-145); eGFR NON BLACK RACES > 60 (>60)
[2020-04-17 07:35] LABS: BAND NEUTROPHILS % 3 % (0-10); METAMYELOCYTES % 1; PLATELET MORPHOLOGY COMMENT NORMAL (NORMAL)
[2020-04-17] MEDS ORDERED: GLUCOPHAGE ONE ×2 (09:03→20:38)
[2020-04-17] MEDS: LEVAQUIN PREMIX IV 500 MG 500 MG/100 ML BAG IV SCH (09:07)
[2020-04-17] MEDS: MAGNESIUM SULFATE 1 GRAM/100 mL PREMIX 1 GM/100 ML BAG IV PRN ×2 (09:08→12:51)
[2020-04-17] MEDS: PLAVIX PO SCH (09:09)
[2020-04-17] MEDS: LASIX GT SCH (09:09)
[2020-04-17] MEDS: ASPIRIN 81 MG CHEWTAB PO SCH (09:10)
[2020-04-17] MEDS: FERROUS GLUCONATE PO SCH (09:10)
[2020-04-17] MEDS: GLUCOPHAGE PO SCH ×2 (09:10→21:34)
[2020-04-17] MEDS: KEPPRA TAB 500 MG PO SCH ×2 (09:11→21:34)
[2020-04-17] MEDS: COLACE SYRUP 100 MG UDC PO SCH (09:11)
[2020-04-17] MEDS: PROTONIX INJ 40 MG VIAL IVP SCH (09:11)
[2020-04-17] MEDS: DUONEB 0.5 MG/3 MG (3 mL) NEB SCH ×5 (09:30→21:41)
[2020-04-17] MEDS: PULMICORT NEB TX 0.5 MG NEB SCH ×3 (09:30→21:41)
[2020-04-17] MEDS: HumuLIN R SUBCUT PRN ×2 (11:52→17:10)
[2020-04-17] MEDS ORDERED: NS 500 ML IV 500 ML IV ONE (15:44)
[2020-04-17 20:21] LABS: HEMATOCRIT 32.7 % (42.0-54.0); HEMOGLOBIN 10.7 g/dL (13.5-18.0)
[2020-04-17] MEDS: SNACK - Diabetic Appropriate PO SCH (21:30)
[2020-04-17] MEDS: LIPITOR TAB 40 MG PO SCH (21:34)
[2020-04-17] MEDS: ZOLOFT PO SCH (21:34)
[2020-04-17] MEDS: NEURONTIN CAP 100 MG PO SCH (21:34)
[2020-04-18] MEDS: FORTAZ or TAZICEF VIAL INJ 1 G in NS 100 ML IV + SPIKE MINIBAG* 100 ML IV SCH ×3 (06:19→21:00)
[2020-04-18 06:20] LABS: BASOPHILS % (AUTO) 0.4 % (0.2-1.0); EOSINOPHILS # (AUTO) 0.4 x10^3/uL (0.0-0.2); HEMATOCRIT 29.2 % (42.0-54.0); HEMOGLOBIN 9.6 g/dL (13.5-18.0); LYMPHOCYTES # (AUTO) 0.8 X10^3/uL (1.3-2.9); MEAN CORPUSCULAR HGB CONC 32.8 g/dL (33.0-35.0); MEAN CORPUSCULAR VOLUME 85.3 fL (80.0-100.0); MEAN PLATELET VOLUME 8.8 fL (7.4-11.0); MONOCYTES # (AUTO) 1.3 x10^3/uL (0.3-0.8); MONOCYTES % (AUTO) 12.8 % (0.0-13.0); NEUTROPHILS # (AUTO) 7.5 x10^3/uL (2.2-4.8); NEUTROPHILS % (AUTO) 74.8 % (42.0-75.0); PLATELET COUNT 262 X10^3/uL (150.0-450.0); RED BLOOD COUNT 3.42 X10^6/uL (4.7-6.0); RED CELL DISTRIBUTION WIDTH 17.9 % (11.6-16.5); WHITE BLOOD COUNT 10.1 X10^3/uL (3.6-10.0)
[2020-04-18 06:36] LABS: ALANINE AMINOTRANSFERASE 43 Units/L (12-78); ALBUMIN 2.3 g/dL (3.4-5.0); ALKALINE PHOSPHATASE 117 Units/L (46-116); ASPARTATE AMINO TRANSFERASE 43 Units/L (15-37); BLOOD UREA NITROGEN 10 mg/dL (7-18); CALCIUM 8.9 mg/dL (8.5-10.1); CARBON DIOXIDE 31.2 mmol/L (21-32); CHLORIDE 98 mmol/L (98-107); COR CA(FOR HYPOALB) 10.3 mg/dL (8.5-10.1); COR NA(FOR HYPERGLY) 137 mmol/L (136-145); CREATININE 0.53 mg/dL (0.70-1.30); SODIUM 135 mmol/L (136-145); TOTAL PROTEIN 6.1 g/dL (6.4-8.2); eGFR NON BLACK RACES > 60 (>60)
[2020-04-18 07:05] LABS: BAND NEUTROPHILS % 2 % (0-10)
[2020-04-18 07:06] LABS: PLATELET MORPHOLOGY COMMENT NORMAL (NORMAL)
[2020-04-18] MEDS ORDERED: GLUCOPHAGE ONE ×2 (08:51→19:42)
[2020-04-18] MEDS: ASPIRIN 81 MG CHEWTAB PO SCH (08:55)
[2020-04-18] MEDS: FERROUS GLUCONATE PO SCH (08:56)
[2020-04-18] MEDS: COLACE SYRUP 100 MG UDC PO SCH (08:56)
[2020-04-18] MEDS: LEVAQUIN PREMIX IV 500 MG 500 MG/100 ML BAG IV SCH (08:57)
[2020-04-18] MEDS: KEPPRA TAB 500 MG PO SCH ×2 (08:57→21:00)
[2020-04-18] MEDS: GLUCOPHAGE PO SCH ×2 (08:57→21:00)
[2020-04-18] MEDS: PLAVIX PO SCH (08:58)
[2020-04-18] MEDS: PROTONIX INJ 40 MG VIAL IVP SCH (08:58)
[2020-04-18] MEDS: DUONEB 0.5 MG/3 MG (3 mL) NEB SCH ×4 (10:30→21:03)
[2020-04-18] MEDS: PULMICORT NEB TX 0.5 MG NEB SCH ×2 (10:30→21:03)
[2020-04-18] MEDS ORDERED: NS 1/2 1000 ML IV 1,000 ML IV ONE (10:40)
[2020-04-18] MEDS: NS 1/2 1000 ML IV 1,000 ML IV SCH ×3 (10:50→21:32)
[2020-04-18] MEDS: HumuLIN R SUBCUT PRN (12:54)
[2020-04-18] MEDS: ZOLOFT PO SCH (21:00)
[2020-04-18] MEDS: NEURONTIN CAP 100 MG PO SCH (21:00)
[2020-04-18] MEDS: NORCO 5/325 MG TAB PO PRN (21:00)
[2020-04-18] MEDS: LIPITOR TAB 40 MG PO SCH (21:00)
[2020-04-18] MEDS: SNACK - Diabetic Appropriate PO SCH (21:00)
[2020-04-19 06:02] LABS: ALANINE AMINOTRANSFERASE 41 Units/L (12-78); ALBUMIN 2.4 g/dL (3.4-5.0); ALKALINE PHOSPHATASE 148 Units/L (46-116); ASPARTATE AMINO TRANSFERASE 35 Units/L (15-37); BLOOD UREA NITROGEN 9 mg/dL (7-18); CALCIUM 8.5 mg/dL (8.5-10.1); CARBON DIOXIDE 32.8 mmol/L (21-32); CHLORIDE 96 mmol/L (98-107); COR CA(FOR HYPOALB) 9.8 mg/dL (8.5-10.1); COR NA(FOR HYPERGLY) 135 mmol/L (136-145); CREATININE 0.48 mg/dL (0.70-1.30); SODIUM 133 mmol/L (136-145); eGFR NON BLACK RACES > 60 (>60)
[2020-04-19] MEDS: HumuLIN R SUBCUT PRN ×2 (06:08→17:34)
[2020-04-19] MEDS: FORTAZ or TAZICEF VIAL INJ 1 G in NS 100 ML IV + SPIKE MINIBAG* 100 ML IV SCH ×3 (06:08→21:48)
[2020-04-19 06:39] LABS: BASOPHILS # (AUTO) 0.1 X10^3/uL (0.0-0.1); BASOPHILS % (AUTO) 0.5 % (0.2-1.0); EOSINOPHILS # (AUTO) 0.4 x10^3/uL (0.0-0.2); EOSINOPHILS % (AUTO) 3.7 % (0.9-2.9); HEMATOCRIT 27.7 % (42.0-54.0); HEMOGLOBIN 9.3 g/dL (13.5-18.0); LYMPHOCYTES # (AUTO) 0.8 X10^3/uL (1.3-2.9); LYMPHOCYTES % (AUTO) 7.7 % (21.0-51.0); MEAN CORPUSCULAR HEMOGLOBIN 28.6 pg (27.0-34.0); MEAN CORPUSCULAR HGB CONC 33.6 g/dL (33.0-35.0); MEAN CORPUSCULAR VOLUME 85.1 fL (80.0-100.0); MEAN PLATELET VOLUME 8.9 fL (7.4-11.0); MONOCYTES # (AUTO) 1.2 x10^3/uL (0.3-0.8); MONOCYTES % (AUTO) 12.1 % (0.0-13.0); NEUTROPHILS # (AUTO) 7.8 x10^3/uL (2.2-4.8); PLATELET COUNT 278 X10^3/uL (150.0-450.0); RED BLOOD COUNT 3.26 X10^6/uL (4.7-6.0); RED CELL DISTRIBUTION WIDTH 17.9 % (11.6-16.5); WHITE BLOOD COUNT 10.3 X10^3/uL (3.6-10.0)
[2020-04-19 07:59] LABS: BAND NEUTROPHILS % 3 % (0-10); PLATELET MORPHOLOGY COMMENT NORMAL (NORMAL)
[2020-04-19] MEDS ORDERED: GLUCOPHAGE ONE ×2 (08:21→20:16)
--- NOTE | 2020-04-19 09:01 | RAD ---
HISTORYsobSTUDYCHEST, 1 VIEWCOMPARISONChest film April 15, 2020.FINDINGSThe trachea is midline. The cardiac silhouette is unremarkable. There are persistent bilateral hazy densities in the lung bases consistent with pleural effusion which has decreased when compared to the last film of 15 April 2020.. The bony thorax is unremarkable. A right-sided subclavian central venous port is in place.IMPRESSIONPersistent bibasilar effusions have decreased slightly when compared to the last film of 15 April 2020.Electronically signed by: MONCHO RUBIO (Apr 19, 2020 09:00:07)
[2020-04-19] MEDS: DUONEB 0.5 MG/3 MG (3 mL) NEB SCH ×4 (09:15→21:08)
[2020-04-19] MEDS: PULMICORT NEB TX 0.5 MG NEB SCH ×2 (09:15→21:08)
[2020-04-19] MEDS: PROTONIX INJ 40 MG VIAL IVP SCH (09:29)
[2020-04-19] MEDS: PLAVIX PO SCH (09:29)
[2020-04-19] MEDS: ASPIRIN 81 MG CHEWTAB PO SCH (09:29)
[2020-04-19] MEDS: FERROUS GLUCONATE PO SCH (09:30)
[2020-04-19] MEDS: LEVAQUIN PREMIX IV 500 MG 500 MG/100 ML BAG IV SCH (09:32)
[2020-04-19] MEDS: GLUCOPHAGE PO SCH ×2 (09:33→21:46)
[2020-04-19] MEDS: KEPPRA TAB 500 MG PO SCH ×2 (09:33→21:47)
[2020-04-19] MEDS: COLACE SYRUP 100 MG UDC PO SCH (09:33)
[2020-04-19] MEDS ORDERED: DILAUDID INJ IVP ONE (18:16)
[2020-04-19] MEDS: NS 1/2 1000 ML IV 1,000 ML IV SCH (19:50)
[2020-04-19] MEDS: SNACK - Diabetic Appropriate PO SCH (20:00)
[2020-04-19] MEDS: NEURONTIN CAP 100 MG PO SCH (21:47)
[2020-04-19] MEDS: LIPITOR TAB 40 MG PO SCH (21:47)
[2020-04-19] MEDS: ZOLOFT PO SCH (21:48)
[2020-04-20] MEDS: NS 1/2 1000 ML IV 1,000 ML IV SCH ×2 (01:40→05:35)
[2020-04-20] MEDS ORDERED: NS 1/2 1000 ML IV 1,000 ML IV ONE (05:17)
[2020-04-20] MEDS: FORTAZ or TAZICEF VIAL INJ 1 G in NS 100 ML IV + SPIKE MINIBAG* 100 ML IV SCH ×2 (05:35→13:12)
[2020-04-20 06:03] LABS: BASOPHILS # (AUTO) 0.1 X10^3/uL (0.0-0.1); BASOPHILS % (AUTO) 0.5 % (0.2-1.0); EOSINOPHILS # (AUTO) 0.3 x10^3/uL (0.0-0.2); EOSINOPHILS % (AUTO) 2.7 % (0.9-2.9); HEMATOCRIT 31.7 % (42.0-54.0); HEMOGLOBIN 10.2 g/dL (13.5-18.0); LYMPHOCYTES # (AUTO) 1.1 X10^3/uL (1.3-2.9); LYMPHOCYTES % (AUTO) 9.5 % (21.0-51.0); MEAN CORPUSCULAR HEMOGLOBIN 27.6 pg (27.0-34.0); MEAN CORPUSCULAR HGB CONC 32.1 g/dL (33.0-35.0); MEAN PLATELET VOLUME 8.9 fL (7.4-11.0); MONOCYTES # (AUTO) 1.3 x10^3/uL (0.3-0.8); MONOCYTES % (AUTO) 10.7 % (0.0-13.0); NEUTROPHILS # (AUTO) 8.9 x10^3/uL (2.2-4.8); NEUTROPHILS % (AUTO) 76.6 % (42.0-75.0); PLATELET COUNT 327 X10^3/uL (150.0-450.0); RED BLOOD COUNT 3.69 X10^6/uL (4.7-6.0); RED CELL DISTRIBUTION WIDTH 17.9 % (11.6-16.5); WHITE BLOOD COUNT 11.7 X10^3/uL (3.6-10.0)
[2020-04-20 06:10] LABS: ALANINE AMINOTRANSFERASE 40 Units/L (12-78); ALBUMIN 2.6 g/dL (3.4-5.0); ALKALINE PHOSPHATASE 100 Units/L (46-116); ASPARTATE AMINO TRANSFERASE 35 Units/L (15-37); BLOOD UREA NITROGEN 10 mg/dL (7-18); CALCIUM 9.3 mg/dL (8.5-10.1); CHLORIDE 96 mmol/L (98-107); COR CA(FOR HYPOALB) 10.4 mg/dL (8.5-10.1); COR NA(FOR HYPERGLY) 132 mmol/L (136-145); CREATININE 0.51 mg/dL (0.70-1.30); SODIUM 132 mmol/L (136-145); TOTAL PROTEIN 6.8 g/dL (6.4-8.2); eGFR NON BLACK RACES > 60 (>60)
[2020-04-20 07:53] LABS: BAND NEUTROPHILS % 4 % (0-10); PLATELET MORPHOLOGY COMMENT NORMAL (NORMAL)
[2020-04-20] MEDS ORDERED: DULCOLAX SUPPOSITORY 10 MG RECTAL ONE (08:02)
[2020-04-20] MEDS ORDERED: NS 1000 ML 1,000 ML IV SCH (09:00)
[2020-04-20] MEDS ORDERED: MILK OF MAGNESIA PO SCH (09:00)
[2020-04-20] MEDS ORDERED: GLUCOPHAGE ONE (09:01)
[2020-04-20] MEDS: LEVAQUIN PREMIX IV 500 MG 500 MG/100 ML BAG IV SCH (09:04)
[2020-04-20] MEDS: KEPPRA TAB 500 MG PO SCH (09:05)
[2020-04-20] MEDS: ASPIRIN 81 MG CHEWTAB PO SCH (09:05)
[2020-04-20] MEDS: PROTONIX INJ 40 MG VIAL IVP SCH (09:05)
[2020-04-20] MEDS: FERROUS GLUCONATE PO SCH (09:05)
[2020-04-20] MEDS: COLACE SYRUP 100 MG UDC PO SCH (09:05)
[2020-04-20] MEDS: GLUCOPHAGE PO SCH (09:05)
[2020-04-20] MEDS: PLAVIX PO SCH (09:05)
[2020-04-20] MEDS: DUONEB 0.5 MG/3 MG (3 mL) NEB SCH ×2 (09:30→13:27)
[2020-04-20] MEDS: PULMICORT NEB TX 0.5 MG NEB SCH (09:30)
[2020-04-20 15:52] VITALS: BP 122/69
--- NOTE | 2020-04-22 11:44 | PCM.PROG ---
Progress Note - Progress Note for Day of Date of Exam: 04/11/20 - Subjective Subjective: WAS ADMITTED FOR TREATMENT OF PNEUMONIA, RULE OUT COVID- 19. TODAY, HE IS LYING IN BED WITH EYES CLOSED ON MORNING ROUNDS. HE IS DIFFICULT TO AROUSE TODAY. HE DOES MOAN TO PAINFUL STIMULI. ON EXAMINATION, HE CONTINUES TO BE TACHYCARDIC WITH HR IN THE 120s. BILATERAL LUNGS CONTINUE WITH SCATTERED WHEEZING AND RHONCHI THROUGHOUT. ABDOMEN IS FLAT, SOFT, AND NOTED WITH NORMAL BOWEL SOUNDS IN ALL QUADRANTS. HIS VITALS THIS MORNING ARE: 100.6-226-56-100%NC-125/69. LABS WERE OBTAINED. ABNORMAL LAB VALUES INCLUDE THE FOLLOWING: WBC 15.3, RBC 3.18, HGB 9.1, HCT 28.9, SODIUM 148, CHLORIDE 108, CARBON DIOXIDE 33.9, BUN 40, GLUCOSE 236, CRP 147.90, ALBUMIN 2.7. BLOOD CULTURES ARE PENDING. COVID-19 PENDING. A CHEST XRAY WAS OBTAINED TODAY AND REVEALED: Slight apparent interval increase in bilateral lower lobe infiltrates/pneumonia. HE IS CURRENTLY RECEIVING D51/2NS AT 50 ML/HR, LEVAQUIN 500MG IV DAILY, FORTAZ 1G IV Q8H, DUONEBS QID, PULMICORT BID, HUMULIN R SLIDING SCLAE, AND HIS HOME MEDICATIONS WERE RESUMED. WE WILL CONTINUE WITH CURRENT PLAN OF CARE TODAY. OTHERWISE, WE WILL FOLLOW UP WITH AM LABS AND CHEST XRAY AND CONTINUE TO MONITOR. - Past Medical Family Social History Past Med/Fam/Surg Hx: No changes since H&P Allergies: Allergies No Known Drug Allergies Allergy (Verified 10/20/18 18:36) - Review of Systems ROS: No change since H&P - Vital Signs and I&O's Vital Signs: Temperature 98.1 F Pulse Rate [Left Brachial] 107 Pulse Rate 107 Respiratory Rate 20 Blood Pressure [Right Arm] 122/69 Blood Pressure [Left Arm] 122/69 Blood Pressure 103/62 O2 Sat by Pulse Oximetry 100 Intake and Output: Intake & Output 04/19/20 04/20/20 04/21/20 04/22/20 11:59 11:59 11:59 11:59 Intake Total 1260 / 1260 688 / 688 835 / 835 Output Total 3100 / 3100 2350 / 2350 1200 / 1200 Balance -1840 / -1840 -1662 / -1662 -365 / -365 - Physical Exam Oriented: Unable to test Eyes: Normal Ear: Normal Nose: Normal Throat: Normal Respiratory: Diminished, Wheezes, Rhonchi Cardiovascular: Tachycardia. negative: S3, S4, Murmur : Normal Auscultation: Bowel Sounds: Normal Palpation: Normal Tenderness: Normal Skin: Decreased Turgur Musculoskeletal: Normal Psychiatric: Other (PATIENT IS LETHARGIC) Mood Description: Flat Affect: Flat Speech Pattern: Appropriate, Delayed - Laboratory and Diagnostics Result Diagrams: 04/20/20 04:30 04/20/20 04:30 Labs: 04/10/20 02:01 Blood Blood Culture - Final 04/10/20 01:53 Blood Blood Culture - Final Laboratory WBC 11.7 X10^3/uL (3.6-10.0) H 04/20/20 04:30 RBC 3.69 X10^6/uL (4.7-6.0) L 04/20/20 04:30 Hgb 10.2 g/dL (13.5-18.0) L 04/20/20 04:30 Hct 31.7 % (42.0-54.0) L 04/20/20 04:30 MCV 86.0 fL (80.0-100.0) 04/20/20 04:30 MCH 27.6 pg (27.0-34.0) 04/20/20 04:30 MCHC 32.1 g/dL (33.0-35.0) L 04/20/20 04:30 RDW 17.9 % (11.6-16.5) H 04/20/20 04:30 Plt Count 327 X10^3/uL (150.0-450.0) 04/20/20 04:30 Plt Count Comment Adequate (ADEQUATE) 04/20/20 04:30 MPV 8.9 fL (7.4-11.0) 04/20/20 04:30 Neut % (Auto) 76.6 % (42.0-75.0) H 04/20/20 04:30 Lymph % (Auto) 9.5 % (21.0-51.0) L 04/20/20 04:30 [place] % (Auto) 10.7 % (0.0-13.0) 04/20/20 04:30 Eos % (Auto) 2.7 % (0.9-2.9) 04/20/20 04:30 Baso % (Auto) 0.5 % (0.2-1.0) 04/20/20 04:30 Neut # (Auto) 8.9 x10^3/uL (2.2-4.8) H 04/20/20 04:30 Lymph # (Auto) 1.1 X10^3/uL (1.3-2.9) L 04/20/20 04:30 [place] # (Auto) 1.3 x10^3/uL (0.3-0.8) H 04/20/20 04:30 Eos # (Auto) 0.3 x10^3/uL (0.0-0.2) H 04/20/20 04:30 Baso # (Auto) 0.1 X10^3/uL (0.0-0.1) 04/20/20 04:30 Absolute Nucleated RBC 0.0 /100WBC 04/20/20 04:30 Total Counted 100 04/20/20 04:30 Neutrophils % (Manual) 75 % (39-76) 04/20/20 04:30 Band Neutrophils % 4 % (0-10) 04/20/20 04:30 Lymphocytes % (Manual) 12 % (13-43) L 04/20/20 04:30 Monocytes % (Manual) 4 % (4-9) 04/20/20 04:30 Eosinophils % (Manual) 5 % (0-6) 04/20/20 04:30 Metamyelocytes % 1 04/17/20 06:05 Plt Morphology Comment Normal (NORMAL) 04/20/20 04:30 RBC Morphology Normal (NORMAL) 04/20/20 04:30 Sample Site Lb 04/14/20 05:30 ABG pH 7.490 (7.35-7.45) H 04/14/20 05:30 ABG pCO2 47.0 mmHg (35.0-45.0) H 04/14/20 05:30 ABG pO2 62.0 mmHg (80.0-100.0) L 04/14/20 05:30 ABG HCO3 35.8 mmol/L (22-26) H* 04/14/20 05:30 ABG O2 Saturation 93.0 % (90-100) 04/14/20 05:30 ABG Base Excess 11.0 mmol/L (-2.0-2.0) H 04/14/20 05:30 Hakeem Test N/a 04/14/20 05:30 A-a Gradient 29.0 mmHg 04/14/20 05:30 FiO2 21.0 04/14/20 05:30 Blood Gas Comments Selin well ae 04/14/20 05:30 Sodium 132 mmol/L (136-145) L 04/20/20 04:30 Corrected Sodium 132 mmol/L (136-145) L 04/20/20 04:30 Potassium 4.9 mmol/L (3.5-5.1) 04/20/20 04:30 Chloride 96 mmol/L (98-107) L 04/20/20 04:30 Carbon Dioxide 33.0 mmol/L (21-32) H 04/20/20 04:30 BUN 10 mg/dL (7-18) 04/20/20 04:30 Creatinine 0.51 mg/dL (0.70-1.30) L 04/20/20 04:30 Est GFR (MDRD) Af Amer > 60 (>60) 04/20/20 04:30 Est GFR (MDRD) Non-Af > 60 (>60) 04/20/20 04:30 Glucose 115 mg/dL (65-99) H 04/20/20 04:30 POC Glucose (mg/dL) 192 mg/dL (65-99) H 04/20/20 11:26 Lactic Acid 1.4 mmol/L (0.4-2.0) 04/10/20 15:05 Calcium 9.3 mg/dL (8.5-10.1) 04/20/20 04:30 Corrected Calcium 10.4 mg/dL (8.5-10.1) H 04/20/20 04:30 Magnesium 1.5 mg/dL (1.7-2.9) L 04/18/20 05:14 Iron 47 ug/dL (50-175) L 04/16/20 05:35 Transferrin 172 mg/dL (202-364) L 04/16/20 05:35 Ferritin 270 ng/mL (26-388) 04/16/20 05:35 Total Bilirubin 0.10 mg/dL (0.2-1.0) L 04/20/20 04:30 AST 35 Units/L (15-37) 04/20/20 04:30 ALT 40 Units/L (12-78) 04/20/20 04:30 Alkaline Phosphatase 100 Units/L (46-116) 04/20/20 04:30 Creatine Kinase 70 Units/L (39-308) 04/10/20 01:53 CK-MB (CK-2) < 1.0 ng/mL (0-4.0) 04/10/20 01:53 CK/CKMB % Calc 1.4 % (<4) 04/10/20 01:53 Troponin I < 0.02 ng/mL (0-1.5) 04/10/20 01:53 C-Reactive Protein 12.00 mg/L (0-3.0) H 04/15/20 05:39 Total Protein 6.8 g/dL (6.4-8.2) 04/20/20 04:30 Albumin 2.6 g/dL (3.4-5.0) L 04/20/20 04:30 Globulin 4.2 g/dL (2.5-4.5) 04/20/20 04:30 Albumin/Globulin Ratio 0.6 Ratio (1.1-2.1) L 04/20/20 04:30 Vitamin B12 590 pg/mL (193-986) 04/16/20 05:35 Folate 13.7 ng/mL (>8.6) 04/16/20 05:35 Specimen Type Catherized urine 04/10/20 02:39 Urine Color Yellow (YELLOW) 04/10/20 02:39 Urine Appearance Clear (CLEAR) 04/10/20 02:39 Urine pH 7.0 (5.0 - 8.0) 04/10/20 02:39 Ur Specific [place] 1.005 (1.000-1.030) 04/10/20 02:39 Urine Protein 2+ (NEGATIVE) 04/10/20 02:39 Urine Glucose (UA) 4+ (NEGATIVE) 04/10/20 02:39 Urine Ketones Negative (NEGATIVE) 04/10/20 02:39 Urine Occult Blood Negative (NEGATIVE) 04/10/20 02:39 Urine Nitrite Negative (NEGATIVE) 04/10/20 02:39 Urine Bilirubin Negative (NEGATIVE) 04/10/20 02:39 Urine Urobilinogen Normal (NORMAL) 04/10/20 02:39 Ur Leukocyte Esterase Negative (NEGATIVE) 04/10/20 02:39 Urine RBC 0-2 /HPF (0-3) 04/10/20 02:39 Urine WBC None seen /HPF (0-5) 04/10/20 02:39 Ur Squamous Epith Cells Rare /HPF (NEGATIVE) 04/10/20 02:39 Urine Bacteria Negative /HPF (NEGATIVE) 04/10/20 02:39 Ur Culture Indicated? No/not indicated 04/10/20 02:39 Levetiracetam 32 ug/mL (12-46) 04/12/20 19:27 Acetone, Semi-Quant Negative (NEGATIVE) 04/14/20 05:52 SARS-CoV-2 (PCR) Negative (NEGATIVE) 04/10/20 02:25 Miscellaneous Test Covid 19 04/10/20 10:25 Blood Type B POSITIVE 04/17/20 13:15 Antibody Screen Negative 04/17/20 13:15 Crossmatch See Detail 04/17/20 13:15 - Plan (1) Pneumonia Status: Acute Qualifiers: Pneumonia type: aspiration pneumonia Aspiration pneumonia type: unspecified Laterality: bilateral Lung location: lower lobe of lung Qualified Code(s): J69.0 - Pneumonitis due to inhalation of food and vomit Plan: Pneumonia. Rule out COVID-19. Continue with IV antibiotics along with respiratory therapy and supplemental oxygen and ABGs. Aspirations precautions.
== END 2020-04-20 16:10 | DRG 178 ==
LOC: ER 01:20 → MED/SURG 08:02
PROVIDERS: ADMIT Internal Medicine; ATTEND Internal Medicine
DX: R13.11 Dysphagia, oral phase; Z74.01 Bed confinement status; R26.89 Other abnormalities of gait and mobility; Z86.73 Personal history of transient ischemic attack (TIA), and cerebral infarction without residual deficits; R50.9 Fever, unspecified; I25.10 Atherosclerotic heart disease of native coronary artery without angina pectoris; E87.0 Hyperosmolality and hypernatremia; K21.9 Gastro-esophageal reflux disease without esophagitis; R41.82 Altered mental status, unspecified; I10 Essential (primary) hypertension; D64.89 Other specified anemias; E11.65 Type 2 diabetes mellitus with hyperglycemia; Z11.59 Encounter for screening for other viral diseases; E86.0 Dehydration; J90 Pleural effusion, not elsewhere classified; Z86.69 Personal history of other diseases of the nervous system and sense organs; Z85.048 Personal history of other malignant neoplasm of rectum, rectosigmoid junction, and anus; J69.0 Pneumonitis due to inhalation of food and vomit
CPT/HCPCS: 36415; 36600; 51702; 71010; 71045; 74000; 74018; 80053; 80177; 81001; 82009; 82550; 82553; 82607; 82728; 82746; 82803; 82947; 83540; 83605; 83735; 84466; 84484; 85014; 85018; 85025; 86140; 86850; 86900; 86901; 86922; 87040; 87635; 92610; 94640; 94760; 96365; 96374; 96375; 97110; 97163; 99284; A4222; C9113; J0696; J0713; J1642; J1815; J1940; J1956; J3475; J3490; J7030; J7040; J7050; J7620; J7626; P9016; S5010